=== PATIENT | male | born 1940 | race Caucasian/White ===

== ENCOUNTER → 2016-08-05 | Outpatient (CLI) | payer MEDICARE, OTHER | LOC: RAD 17:27 | PROVIDERS: ATTEND Internal Medicine | DX: C4A.8 Merkel cell carcinoma of overlapping sites (principal) | CPT/HCPCS: 78815; A9552 ==

== ENCOUNTER 2016-10-09 12:04 | Inpatient (IN) | payer MEDICARE, OTHER ==
--- NOTE | 2016-10-09 12:44 | ER Document Report ---
ED Medical Screen (RME) - General Chief Complaint: Fall Stated Complaint: DIZZY Time Seen by Provider: 10/09/16 12:13 Mode of Arrival: Wheelchair Notes: 76-year-old male who is accompanied by a friend after being sent over by an outside facility for "confusion". Patient supposedly was unable to talk starting around 4 AM. Patient went on a piece of paper that it was 3 AM. Patient denies any headache, chest pain, weakness or numbness to the upper or lower extremities. The friend states the patient has had no recent illness, nausea, vomiting, or other review of systems. Patient has a history of a CABG, intracranial hemorrhage, stroke, and right-sided BKA. On my examination initially, the patient has no obvious focal neurological deficits other than expressive aphasia. TRAVEL OUTSIDE OF THE [place] IN LAST 30 DAYS: No - Related Data Allergies/Adverse Reactions: codeine Allergy (Verified 10/09/16 12:08) latex [Latex] Allergy (Verified 10/09/16 12:08) tetracycline Allergy (Verified 10/09/16 12:08) Past Medical History - Past Medical History Cardiac Medical History: Reports: Hx Hypertension Denies: Hx Coronary Artery Disease, Hx Heart Attack Pulmonary Medical History: Reports: Hx Asthma, Hx COPD Denies: Hx Bronchitis, Hx Pneumonia Neurological Medical History: Denies: Hx Cerebrovascular Accident, Hx Seizures Renal/ Medical History: Denies: Hx Peritoneal Dialysis GI Medical History: Denies: Hx Hepatitis, Hx Hiatal Hernia, Hx Ulcer Musculoskeltal Medical History: Denies Hx Arthritis Infectious Medical History: Denies: Hx Hepatitis Past Surgical History: Denies: Hx Open Heart Surgery, Hx Pacemaker - Immunizations Hx Diphtheria, Pertussis, Tetanus Vaccination: Yes Physical Exam - Vital signs Vitals: Temp Pulse Resp BP Pulse Ox 98.4 F 70 18 128/73 H 98 10/09/16 12:10 10/09/16 12:10 10/09/16 12:10 10/09/16 12:10 10/09/16 12:10 Course - Vital Signs Vital signs: Temp Pulse Resp BP Pulse Ox 98.4 F 70 18 128/73 H 98 10/09/16 12:10 10/09/16 12:10 10/09/16 12:10 10/09/16 12:10 10/09/16 12:10
[2016-10-09 13:17] LABS: ABSOLUTE BASOPHILS # (AUTO) 0.1 10^3/uL (0.0-0.2); ABSOLUTE EOSINOPHILS # (AUTO) 0.2 10^3/uL (0.0-0.6); ABSOLUTE LYMPHOCYTES (AUTO) 1.4 10^3/uL (0.5-4.7); ABSOLUTE MONOCYTES (AUTO) 0.6 10^3/uL (0.1-1.4); ABSOLUTE NEUT (AUTO) 4.7 10^3/uL (1.7-8.2); EOSINOPHILS % (AUTO) 2.4 % (0-6); HEMATOCRIT 35.4 % (37.9-51.0); HEMOGLOBIN 11.9 g/dL (13.5-17.0); HGB HCT DIFFERENCE 0.3; LYMPHOCYTES % (AUTO) 19.6 % (13-45); MEAN CORPUSCULAR HEMOGLOBIN 27.5 pg (27.0-33.4); MEAN CORPUSCULAR HGB CONC 33.7 g/dL (32.0-36.0); MEAN CORPUSCULAR VOLUME 82 fl (80-97); MONOCYTES % (AUTO) 9.2 % (3-13); RED BLOOD COUNT 4.34 10^6/uL (4.35-5.55); RED CELL DISTRIBUTION WIDTH 14.2 % (11.5-14.0); SEGMENTED NEUTROPHILS % (AUTO) 67.8 % (42-78); WHITE BLOOD COUNT 6.9 10^3/uL (4.0-10.5)
[2016-10-09 13:28] LABS: APPEARANCE,URINE SLIGHTLY-CLOUDY; BILIRUBIN,URINE NEGATIVE (NEGATIVE); GLUCOSE, URINE NEGATIVE (NEGATIVE); KETONES,URINE NEGATIVE (NEGATIVE); LEUKOCYTE ESTERASE,URINE NEGATIVE (NEGATIVE); NITRITE,URINE NEGATIVE (NEGATIVE); PROTEIN,URINE 30 mg/dL (NEGATIVE); URINE SPECIFIC GRAVITY 1.015; UROBILINOGEN,URINE NEGATIVE mg/dL (<2.0)
[2016-10-09] MEDS ORDERED: NORMAL SALINE 1000 ML 1,000 ML IV ONE (13:32)
--- NOTE | 2016-10-09 13:32 | ER Document Report ---
ED General - General Chief Complaint: Fall Stated Complaint: DIZZY Time Seen by Provider: 10/09/16 12:13 Mode of Arrival: Wheelchair Information source: Patient, Relative Cannot obtain history due to: Altered mental status TRAVEL OUTSIDE OF THE [place] IN LAST 30 DAYS: No - HPI Notes: 72-year-old male with history of Adrián cell cancer with brain metastases presents with increasing confusion and instability with frequent falls over the last week. Patient had a fall about a week ago and had hit his head but seemed okay. That night he seemed more tremulous and since then has had increasing confusion and various areas of pain. This includes his back which he had an MRI for this weekend showing an acute mildly compressed L2 fracture. Denies any neurologic symptoms otherwise such as focal leg weakness or numbness. Everything seems fairly global. His intake has been very poor over the last few days as well and he states he does not have an appetite. There is been no fever or infectious symptoms otherwise. Denies dysuria or cough cold or other symptoms. Tetanus shot is not up-to-date. He has as well started on Nucynta for the pain but this has not been started until after the decompensation was already occurring. - Related Data Allergies/Adverse Reactions: codeine Allergy (Verified 10/09/16 12:08) latex [Latex] Allergy (Verified 10/09/16 12:08) tetracycline Allergy (Verified 10/09/16 12:08) Past Medical History - Social History Smoking Status: Never Smoker Family History: Reviewed & Not Pertinent Patient has suicidal ideation: No Patient has homicidal ideation: No - Past Medical History Cardiac Medical History: Reports: Hx Hypertension Denies: Hx Coronary Artery Disease, Hx Heart Attack Pulmonary Medical History: Reports: Hx Asthma, Hx COPD Denies: Hx Bronchitis, Hx Pneumonia Neurological Medical History: Denies: Hx Cerebrovascular Accident, Hx Seizures Renal/ Medical History: Denies: Hx Peritoneal Dialysis GI Medical History: Denies: Hx Hepatitis, Hx Hiatal Hernia, Hx Ulcer Musculoskeltal Medical History: Denies Hx Arthritis Infectious Medical History: Denies: Hx Hepatitis Past Surgical History: Denies: Hx Open Heart Surgery, Hx Pacemaker - Immunizations Hx Diphtheria, Pertussis, Tetanus Vaccination: Yes Hx Pneumococcal Vaccination: 05/27/06 Review of Systems - Review of Systems -: Yes All other systems reviewed and negative Physical Exam - Vital signs Vitals: Temp Pulse Resp BP Pulse Ox 98.4 F 70 18 128/73 H 98 10/09/16 12:10 10/09/16 12:10 10/09/16 12:10 10/09/16 12:10 10/09/16 12:10 - Notes Notes: GENERAL: VS as per nursing doc. chronically ill, pleasant and cooperative male in no acute distress. HEAD: No gross deformity but he has scattered abrasions over his forehead and crowns of his head. EYES: Chronic changes noted to the right eye, the site of prior surgeries, extraocular movements intact, sclera anicteric, no conjunctival injection or discharge. ENT: Nares patent, oropharynx clear without exudates, very dry mucous membranes. NECK: Normal range of motion, supple without tenderness LUNGS: Breath sounds clear but coarse to auscultation bilaterally and equal. No wheezes rales or rhonchi. HEART: Regular rate and rhythm without murmurs. ABDOMEN: Soft, non-tender, normoactive bowel sounds. No guarding, no rebound. No masses appreciated. No Hollywood sign. BACK: Lumbar tenderness noted EXTREMITIES: Normal range of motion, no calf tenderness, no edema. NEUROLOGICAL: Cranial nerves appeared intact, normal speech, poor recall and is oriented 2. PSYCH: Normal mood, normal affect. Pleasant and cooperative SKIN: Warm, dry, scattered areas of abrasions are noted over his legs particularly on the medial knee regions bilaterally. Also this includes the frontal region of the skull and some superficial skin tears are noted over both extremities Course - Re-evaluation Re-evalutation: 10/09/16 16:09 Dr. Hopkins will admit to [facility]. - Vital Signs Vital signs: Temp Pulse Resp BP Pulse Ox 98.4 F 70 16 102/78 99 10/09/16 12:10 10/09/16 12:10 10/09/16 15:01 10/09/16 14:01 10/09/16 15:01 - Laboratory Result Diagrams: 10/09/16 12:55 10/09/16 12:55 Laboratory results interpreted by me: 10/09/16 10/09/16 10/09/16 12:55 12:55 12:55 RBC 4.34 L Hgb 11.9 L Hct 35.4 L RDW 14.2 H Sodium 133.4 L BUN 27 H Creatinine 1.78 H Est GFR ( Amer) 45 L Est GFR (Non-Af Amer) 38 L Total Bilirubin 1.7 H Direct Bilirubin 1.1 H AST 76 H Urine Protein 30 H Urine Ascorbic Acid 20 H - EKG Interpretation by Ok EKG shows normal: Sinus rhythm - Normal sinus rhythm with normal rate of 66. QRS is normal. There is some mild ST depression predominantly in inferior and anterior leads. This seems to slightly more prominent than 12/05/2015. Discharge - Discharge Clinical Impression: Ataxia, Adrián cell carcinoma Condition: Fair Disposition: ADMITTED INPATIENT Admitting Provider: Hopkins Unit Admitted: [facility]
[2016-10-09 13:36] LABS: ALANINE AMINOTRANSFERASE 53 U/L (21-72); ALBUMIN 3.6 g/dL (3.5-5.0); ALKALINE PHOSPHATASE 79 U/L (38-126); ANION GAP 11 (5-19); ASPARTATE AMINO TRANSFERASE 76 U/L (17-59); BILIRUBIN,DIRECT 1.1 mg/dL (0.0-0.4); BILIRUBIN,TOTAL 1.7 mg/dL (0.2-1.3); BLOOD UREA NITROGEN 27 mg/dL (7-20); CALCIUM 9.4 mg/dL (8.4-10.2); CARBON DIOXIDE 24 mmol/L (22-30); CHLORIDE 98 mmol/L (98-107); CREATININE RESULT 1.78 mg/dL (0.52-1.25); GLUCOSE 89 mg/dL (75-110); SODIUM 133.4 mmol/L (137-145); TOTAL PROTEIN 6.7 g/dL (6.3-8.2)
[2016-10-09] MEDS ORDERED: ONDANSETRON HCL INJ/PF 4 MG/2 ML SDV IV PRN (16:35)
[2016-10-09] MEDS ORDERED: NORMAL SALINE 1000 ML 1,000 ML IV PRN (16:35)
[2016-10-09] MEDS ORDERED: IPRATROPIUM/ALBUTEROL 0.5-2.5 MG/3 ML AMPUL NEB PRN (16:35)
[2016-10-09] MEDS ORDERED: ACETAMINOPHEN 325 MG TABLET PO PRN (16:35)
[2016-10-09] MEDS ORDERED: ENOXAPARIN SODIUM INJ 40 MG/0.4 ML DISP.SYRIN SUBCUT ONE (18:00)
--- NOTE | 2016-10-09 18:16 | PDOC H&P ---
History of Present Illness Admission Date/PCP: 10/09/16 16:35 AURORA LOWRY MD Patient complains of: Weakness and frequent fall History of Present Illness: LI CHENG is a 76 year old male This is a 72-year-old male with the history of the Adrián cell cancer with the brain metastasis presents with increasing confusion and instability with frequent falls over the last 1 week. Patient had a fall about 1 week ago and had a heat is head. That might is seems more tremulous and since then he has increasing confusions and various area of the pain. This included in the back which patient's went to see her Dr. Larry Argueta and had a MRI was done and formed acute compression fracture, L2. Patient's any denied any neurological symptoms other than that weakness. According to the right patient have a urinary tract infections couple of weeks back and the patient was feeling the same carpal confusions. Patient is going to see the oncology today and the ascending to the emergency department because of the all the weakness in the confusions. Patient's denied any cough any congestion patient's denied any urinary symptoms. Patient started the [facility] center for the pain but patient's did not taking any medication yet Patient's also currently on immunotherapy and patient's complaining some rash on the skin Past Medical History Cardiac Medical History: Reports: Hyperlipidema, Hypertension Denies: Coronary Artery Disease, Myocardial Infarction Pulmonary Medical History: Reports: Asthma, Chronic Obstructive Pulmonary Disease (COPD) Denies: Bronchitis, Pneumonia Neurological Medical History: Denies: Seizures GI Medical History: Denies: Hepatitis, Hiatal Hernia Musculoskeltal Medical History: Denies: Arthritis Psychiatric Medical History: Reports: Depression Hematology: Denies: Anemia, Sickle Cell Disease Past Surgical History Past Surgical History: Reports: Other Denies: Pacemaker Social History Smoking Status: Never Smoker Family History Family History: Reviewed & Not Pertinent Parental Family History Reviewed: Yes Children Family History Reviewed: Yes Sibling(s) Family History Reviewed.: Yes Medication/Allergy Home Medications: Atenolol [Tenormin 50 mg Tablet] 25 mg PO DAILY 10/09/16 B Complex & C No.20/Folic Acid [Renal Caps Softgel] 1 cap PO DAILY 10/09/16 Chlorzoxazone [Lorzone] 375 mg PO BID 10/09/16 Cholecalciferol (Vitamin D3) [Vitamin D3 1000 Unit Tablet] 1,000 units PO DAILY 10/09/16 Fenofibric Acid (Choline) [Fenofibric Acid] 135 mg PO DAILY 10/09/16 Furosemide [Lasix 20 mg Tablet] 20 mg PO MOWEFR 10/09/16 Hydroxyzine HCl [Atarax 50 mg Tablet] 50 mg PO TID 10/09/16 Levetiracetam [Keppra 500 mg Tablet] 1,000 mg PO Q12 10/09/16 Levothyroxine Sodium [Synthroid 0.1 mg Tablet] 0.01 mg PO DAILY 10/09/16 Montelukast Sodium [Singulair 10 mg Tablet] 10 mg PO DAILY 10/09/16 Pantoprazole Sodium [Protonix] 40 mg PO DAILY 10/09/16 Phosphorus #1 [K-Phos Neutral 250 mg Tablet] 125 mg PO DAILY 10/09/16 Sertraline HCl [Zoloft] 100 mg PO DAILY 10/09/16 Simvastatin [Zocor 20 mg Tablet] 20 mg PO QHS 10/09/16 Tapentadol Hydrochloride [Nucynta] 50 mg PO QID 10/09/16 Tiotropium [place] [Spiriva Handihaler 18 mcg/dose (30 Dose)] 1 puff IH DAILY Tramadol HCl [Ultram 50 mg Tablet] 50 mg PO TIDP PRN 10/09/16 Allergies/Adverse Reactions: codeine Allergy (Verified 10/09/16 12:08) latex [Latex] Allergy (Verified 10/09/16 12:08) tetracycline Allergy (Verified 10/09/16 12:08) Review of Systems Constitutional: PRESENT: anorexia, weakness, weight loss Eyes: ABSENT: visual disturbances Ears: ABSENT: hearing changes Cardiovascular: PRESENT: other. ABSENT: chest pain, dyspnea on exertion, edema , orthropnea, palpitations Respiratory: ABSENT: cough, hemoptysis Gastrointestinal: ABSENT: abdominal pain, constipation, diarrhea, hematemesis, hematochezia, nausea, vomiting Genitourinary: ABSENT: dysuria, hematuria Musculoskeletal: ABSENT: joint swelling Integumentary: ABSENT: rash, wounds Neurological: PRESENT: confusion, dizziness. ABSENT: abnormal gait, abnormal speech, focal weakness, syncope Psychiatric: PRESENT: depression. ABSENT: anxiety, homidical ideation, suicidal ideation Endocrine: ABSENT: cold intolerance, heat intolerance, menstrual abnormalities, polydipsia, polyuria Hematologic/Lymphatic: ABSENT: easy bleeding, easy bruising, lymphadenopathy Physical Exam Vital Signs: Temp Pulse Resp BP Pulse Ox 98.4 F 70 19 159/62 H 100 10/09/16 12:10 10/09/16 12:10 10/09/16 17:01 10/09/16 16:03 10/09/16 17:02 General appearance: PRESENT: no acute distress Head exam: PRESENT: atraumatic, normocephalic Eye exam: PRESENT: conjunctiva pink, EOMI, PERRLA. ABSENT: scleral icterus Ear exam: PRESENT: normal external ear exam Mouth exam: PRESENT: moist, tongue midline Neck exam: PRESENT: full ROM. ABSENT: carotid bruit, JVD, lymphadenopathy, thyromegaly Respiratory exam: PRESENT: clear to auscultation kay Cardiovascular exam: PRESENT: RRR. ABSENT: diastolic murmur, rubs, systolic murmur Pulses: PRESENT: normal dorsalis pedis pul, +2 pedal pulses bilateral Vascular exam: PRESENT: normal capillary refill GI/Abdominal exam: PRESENT: normal bowel sounds, soft. ABSENT: distended, guarding, mass, organolmegaly, rebound, tenderness Rectal exam: PRESENT: deferred Extremities exam: ABSENT: pedal edema Neurological exam: PRESENT: alert, awake, oriented to person, oriented to place , reflexes normal, CN II-XII grossly intact. ABSENT: motor sensory deficit Psychiatric exam: PRESENT: appropriate affect, normal mood. ABSENT: homicidal ideation, suicidal ideation Skin exam: PRESENT: dry, intact, warm, other - Scattered area of the upper is noted over these leg. On the frontal region of the skull and some superficial skin tears are noted in the both extremity. ABSENT: cyanosis, rash Results Impressions: Head CT 10/09/16 12:14 IMPRESSION: No acute changes. 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 This is unchanged from MRI 08/01/2016, and CT brain 12/05/2015. Chest X-Ray 10/09/16 13:34 IMPRESSION: NO ACUTE RADIOGRAPHIC FINDING IN THE CHEST. Assessment & Plan - Diagnosis (1) Weakness Is this a current diagnosis for this admission?: YesPlan: Most likely a poor appetite and the recent compression fracture. We will admit the patient get the pain management consult and start the IV fluid and the physical therapy evaluations (2) Dehydration Is this a current diagnosis for this admission?: YesPlan: Start the IV fluid (3) Frequent falls Is this a current diagnosis for this admission?: YesPlan: Most likely due to the new onset of the compression fracture. Patient's CT of the head is negative for any acute finding except patient have a metastatic disease which is unchanged (4) Compression fracture of fourth lumbar vertebra Qualifiers: Encounter type: initial encounter Is this a current diagnosis for this admission?: YesPlan: Consult the pain management (5) Ataxia Is this a current diagnosis for this admission?: Yes (6) [place] cell carcinoma Is this a current diagnosis for this admission?: YesPlan: Consult the oncology (7) Confusion Is this a current diagnosis for this admission?: YesPlan: We will get the blood culture urine culture to rule out any infectious process. Start the patient on IV Rocephin - Time Time Spent: 50 to 70 Minutes Medications reviewed and adjusted accordingly: Yes Anticipated discharge: Home, Other Within: Other - Inpatient Certification Medical Necessity: Need Close Monitoring Due to Risk of Patient Decompensation, Need For IV Fluids, Need for IV Antibiotics Post Hospital Care: D/C Ergon[facility] Specialist Documentation - Plan Summary Plan Summary: Very extensive discussed with the in the emergency department about the patient's current conditions and overall poor prognosis
[2016-10-09] MEDS: CEFTRIAXONE 1 GM/D5W RTU 1 GM/50 ML RTUPB IV SCH (19:09)
[2016-10-09] MEDS: LANSOPRAZOLE 15 MG TAB.RAP.DR PO SCH (19:37)
[2016-10-09] MEDS ORDERED: HYDROXYZINE PAMOATE 50 MG CAPSULE PO ONE (20:30)
[2016-10-09 21:28] LABS: CREATINE KINASE MB 1.16 ng/mL (<4.55)
[2016-10-09 21:30] LABS: TROPONIN I < 0.012 ng/mL
[2016-10-09] MEDS: TRAMADOL HCL 50 MG TABLET PO PRN (21:51)
[2016-10-09] MEDS: SIMVASTATIN 10 MG TABLET PO SCH (21:51)
[2016-10-09] MEDS: LEVETIRACETAM 500 MG TABLET PO SCH (21:52)
[2016-10-09] MEDS ORDERED: HYDROXYZINE HCL 10 MG TABLET PO SCH (22:00)
[2016-10-09] MEDS: HYDROXYZINE HCL 10 MG TABLET PO SCH (22:06)
--- NOTE | 2016-10-09 22:11 | EKG REPORT ---
SEVERITY:- NORMAL ECG - SINUS RHYTHM : Confirmed by: Edie Fang MD 09-Oct-2016 22:10:32
[2016-10-10] MEDS ORDERED: (PENDING PHARMACY ID) (Tapentadol Hydrochloride [Nucynta] 50 MG) PO SCH
[2016-10-10 02:18] LABS: ABSOLUTE BASOPHILS # (AUTO) 0.1 10^3/uL (0.0-0.2); ABSOLUTE EOSINOPHILS # (AUTO) 0.2 10^3/uL (0.0-0.6); ABSOLUTE MONOCYTES (AUTO) 0.4 10^3/uL (0.1-1.4); ABSOLUTE NEUT (AUTO) 3.6 10^3/uL (1.7-8.2); BASOPHILS % (AUTO) 1.1 % (0-2); EOSINOPHILS % (AUTO) 3.8 % (0-6); HEMATOCRIT 31.6 % (37.9-51.0); HEMOGLOBIN 10.9 g/dL (13.5-17.0); HGB HCT DIFFERENCE 1.1; LYMPHOCYTES % (AUTO) 18.3 % (13-45); MEAN CORPUSCULAR HEMOGLOBIN 27.5 pg (27.0-33.4); MEAN CORPUSCULAR HGB CONC 34.6 g/dL (32.0-36.0); MEAN CORPUSCULAR VOLUME 79 fl (80-97); MONOCYTES % (AUTO) 8.4 % (3-13); RED BLOOD COUNT 3.98 10^6/uL (4.35-5.55); RED CELL DISTRIBUTION WIDTH 13.9 % (11.5-14.0); SEGMENTED NEUTROPHILS % (AUTO) 68.4 % (42-78); WHITE BLOOD COUNT 5.2 10^3/uL (4.0-10.5)
[2016-10-10 02:27] LABS: ALANINE AMINOTRANSFERASE 49 U/L (21-72); ALBUMIN 2.8 g/dL (3.5-5.0); ALKALINE PHOSPHATASE 70 U/L (38-126); ANION GAP 9 (5-19); ASPARTATE AMINO TRANSFERASE 60 U/L (17-59); BILIRUBIN,DIRECT 0.7 mg/dL (0.0-0.4); BILIRUBIN,TOTAL 1.1 mg/dL (0.2-1.3); BLOOD UREA NITROGEN 20 mg/dL (7-20); CALCIUM 8.5 mg/dL (8.4-10.2); CARBON DIOXIDE 23 mmol/L (22-30); CHLORIDE 107 mmol/L (98-107); CREATININE RESULT 1.46 mg/dL (0.52-1.25); GLUCOSE 103 mg/dL (75-110); POTASSIUM 3.7 mmol/L (3.6-5.0); SODIUM 138.9 mmol/L (137-145); TOTAL PROTEIN 5.3 g/dL (6.3-8.2)
[2016-10-10 02:38] LABS: CREATINE KINASE MB 1.29 ng/mL (<4.55)
[2016-10-10 02:43] LABS: TROPONIN I < 0.012 ng/mL
[2016-10-10] MEDS: LANSOPRAZOLE 15 MG TAB.RAP.DR PO SCH ×2 (06:00→17:00)
[2016-10-10] MEDS: HYDROXYZINE HCL 10 MG TABLET PO SCH ×3 (06:00→22:33)
[2016-10-10] MEDS ORDERED: LEVOTHYROXINE SODIUM 0.1 MG TABLET PO SCH (08:00)
[2016-10-10] MEDS: ENOXAPARIN SODIUM INJ 40 MG/0.4 ML DISP.SYRIN SUBCUT SCH (08:00)
[2016-10-10] MEDS ORDERED: ATENOLOL 50 MG TABLET PO SCH (10:00)
[2016-10-10] MEDS: MONTELUKAST SODIUM 10 MG TABLET PO SCH (10:00)
[2016-10-10] MEDS ORDERED: CHLORZOXAZONE 375 MG PO SCH (10:00)
[2016-10-10] MEDS ORDERED: (PENDING PHARMACY ID) (Fenofibric Acid (Choline) [Fenofibric Acid] 135 MG) PO SCH (10:00)
[2016-10-10] MEDS: PHOSPHORUS #1 250 MG TABLET PO SCH (10:00)
[2016-10-10] MEDS: FOLIC ACID/VITAMIN B COMP W-C CAPSULE PO SCH (10:00)
[2016-10-10] MEDS: TIOTROPIUM BROMIDE DPI 5 CAP/KIT (18 MCG/CAP) IH SCH (10:00)
[2016-10-10] MEDS ORDERED: FUROSEMIDE 20 MG TABLET PO SCH (10:00)
[2016-10-10] MEDS: SERTRALINE HCL 50 MG TABLET PO SCH (10:00)
[2016-10-10] MEDS ORDERED: FENOFIBRATE NANOCRYSTALLIZED 145 MG TABLET PO SCH (10:00)
[2016-10-10] MEDS: LEVETIRACETAM 500 MG TABLET PO SCH ×2 (10:00→22:33)
[2016-10-10] MEDS: CHLORZOXAZONE 500 MG TABLET PO SCH ×2 (10:00→18:00)
[2016-10-10] MEDS: CHOLECALCIFEROL (D3) 1,000 UNIT TABLET PO SCH (10:00)
[2016-10-10] MEDS: CEFTRIAXONE 1 GM/D5W RTU 1 GM/50 ML RTUPB IV SCH (18:00)
[2016-10-10] MEDS ORDERED: CEFTRIAXONE 1 GM/D5W RTU 1 GM/50 ML RTUPB IV ONE (18:00)
[2016-10-10] MEDS: SIMVASTATIN 10 MG TABLET PO SCH (22:33)
[2016-10-11] MEDS: HYDROXYZINE HCL 10 MG TABLET PO SCH (05:15)
[2016-10-11] MEDS: LANSOPRAZOLE 15 MG TAB.RAP.DR PO SCH ×2 (05:15→17:35)
[2016-10-11 05:43] LABS: ABSOLUTE EOSINOPHILS # (AUTO) 0.4 10^3/uL (0.0-0.6); ABSOLUTE LYMPHOCYTES (AUTO) 0.9 10^3/uL (0.5-4.7); ABSOLUTE MONOCYTES (AUTO) 0.5 10^3/uL (0.1-1.4); ABSOLUTE NEUT (AUTO) 3.2 10^3/uL (1.7-8.2); BASOPHILS % (AUTO) 0.6 % (0-2); EOSINOPHILS % (AUTO) 7.1 % (0-6); HEMATOCRIT 36.7 % (37.9-51.0); HEMOGLOBIN 12.2 g/dL (13.5-17.0); HGB HCT DIFFERENCE -0.1; LYMPHOCYTES % (AUTO) 18.3 % (13-45); MEAN CORPUSCULAR HEMOGLOBIN 27.3 pg (27.0-33.4); MEAN CORPUSCULAR HGB CONC 33.4 g/dL (32.0-36.0); MEAN CORPUSCULAR VOLUME 82 fl (80-97); MONOCYTES % (AUTO) 9.6 % (3-13); RED BLOOD COUNT 4.49 10^6/uL (4.35-5.55); RED CELL DISTRIBUTION WIDTH 13.9 % (11.5-14.0); SEGMENTED NEUTROPHILS % (AUTO) 64.4 % (42-78)
--- NOTE | 2016-10-11 07:45 | PDOC CONSULTATION ---
Consultation Consult Date: 10/10/16 Attending physician:: MARLENA OLWRY Consult reason:: Asked by Dr. Lowry to see patient with known history of stage for Adrián cell carcinoma with brain metastasis, here with weakness, falls, neurologic changes History of Present Illness Admission Date/PCP: 10/09/16 16:35 AURORA LOWRY MD Patient complains of: patient with known history of stage for Adrián cell carcinoma with brain metastasis, here with weakness, falls, neurologic changes History of Present Illness: 76-year-old male with known history of stage for [place] cell carcinoma, he has had this diagnosis now for almost 2 years, initially had intra-abdominal metastasis and then had brain metastasis. He had a brain metastasis treated by gamma knife, about 1 year ago was treated with whole brain radiation. The abdominal metastasis was treated with CyberKnife therapy and now has been in remission for about 2 years. About 8 months ago the brain metastasis began to grow post whole brain radiation, there were neurologic changes, and we started him on compassionate use of immunotherapy called Keytruda, he has been on that now for this time period. He has been doing very well, the neurologic changes improved, imaging indicated improved disease and most recently stable disease. He had MRI last in July. He was planned for another one in October. PET/CT in July also showed no evidence of disease outside the brain. But the uptake in the brain was better. About 1 week ago he was walking up the stairs in his house and fell backwards, fell to his back and head. Thereafter his notes that he has been confused, he has had 5 other falls, he was seen in office on and we wanted to directly admit him to [facility] because of weakness, he came in a wheelchair and was confused, he had multiple bruises on his body from falls, ultimately we sent him to the ED, he had a CT of the head without contrast, no evidence of bleed, the lesion was stable, he was admitted for further workup. Since admission, he was found to have some evidence of UTI and has been started on ceftriaxone. Past Medical History Cardiac Medical History: Reports: Hyperlipidema, Hypertension Denies: Coronary Artery Disease, Myocardial Infarction Pulmonary Medical History: Reports: Asthma, Chronic Obstructive Pulmonary Disease (COPD) Denies: Bronchitis, Pneumonia Neurological Medical History: Denies: Seizures Malignancy Medical History: Reports: Other - adrián cell carcinoma as above GI Medical History: Denies: Hepatitis, Hiatal Hernia Musculoskeltal Medical History: Denies: Arthritis Psychiatric Medical History: Reports: Depression Hematology: Denies: Anemia, Sickle Cell Disease Past Surgical History Past Surgical History: Reports: Other Denies: Pacemaker Social History Smoking Status: Never Smoker Frequency of Alcohol Use: None Hx Recreational Drug Use: No Hx Prescription Drug Abuse: No - Advance Directive Resuscitation Status: Full Code Family History Family History: Reviewed & Not Pertinent Parental Family History Reviewed: Yes Children Family History Reviewed: Yes Sibling(s) Family History Reviewed.: Yes Medication/Allergy Home Medications: Atenolol [Tenormin 50 mg Tablet] 25 mg PO DAILY 10/09/16 B Complex & C No.20/Folic Acid [Renal Caps Softgel] 1 cap PO DAILY 10/09/16 Chlorzoxazone [Lorzone] 375 mg PO BID 10/09/16 Cholecalciferol (Vitamin D3) [Vitamin D3 1000 Unit Tablet] 1,000 units PO DAILY 10/09/16 Fenofibric Acid (Choline) [Fenofibric Acid] 135 mg PO DAILY 10/09/16 Furosemide [Lasix 20 mg Tablet] 20 mg PO MOWEFR 10/09/16 Hydroxyzine HCl [Atarax 50 mg Tablet] 50 mg PO TID 10/09/16 Levetiracetam [Keppra 500 mg Tablet] 1,000 mg PO Q12 10/09/16 Levothyroxine Sodium [Synthroid 0.1 mg Tablet] 0.1 mg PO DAILY 10/09/16 Montelukast Sodium [Singulair 10 mg Tablet] 10 mg PO DAILY 10/09/16 Pantoprazole Sodium [Protonix] 40 mg PO DAILY 10/09/16 Phosphorus #1 [K-Phos Neutral 250 mg Tablet] 125 mg PO DAILY 10/09/16 Sertraline HCl [Zoloft] 100 mg PO DAILY 10/09/16 Simvastatin [Zocor 20 mg Tablet] 20 mg PO QHS 10/09/16 Tapentadol Hydrochloride [Nucynta] 50 mg PO QID 10/09/16 Tiotropium [place] [Spiriva Handihaler 18 mcg/dose (30 Dose)] 1 puff IH DAILY Tramadol HCl [Ultram 50 mg Tablet] 50 mg PO TIDP PRN 10/09/16 Allergies/Adverse Reactions: codeine Allergy (Verified 10/09/16 12:08) latex [Latex] Allergy (Verified 10/09/16 12:08) tetracycline Allergy (Verified 10/09/16 12:08) Review of Systems ROS unobtainable: Due to mental status Physical Exam Vital Signs: Temp Pulse Resp BP Pulse Ox 97.5 F 57 L 20 164/81 H 100 10/11/16 04:42 10/11/16 04:42 10/11/16 04:42 10/11/16 04:42 10/11/16 04:42 Intake & Output 10/10/16 10/11/16 10/12/16 06:59 06:59 06:59 Intake Total 1145 Output Total 200 Balance 945 Weight 86 kg General appearance: PRESENT: no acute distress, well-developed, well-nourished Head exam: PRESENT: atraumatic, normocephalic Eye exam: PRESENT: conjunctiva pink, EOMI, PERRLA. ABSENT: scleral icterus Ear exam: PRESENT: normal external ear exam Mouth exam: PRESENT: moist, tongue midline Neck exam: ABSENT: carotid bruit, JVD, lymphadenopathy, thyromegaly Respiratory exam: PRESENT: clear to auscultation kay. ABSENT: rales, rhonchi, wheezes Cardiovascular exam: PRESENT: RRR. ABSENT: diastolic murmur, rubs, systolic murmur Pulses: PRESENT: normal dorsalis pedis pul Vascular exam: PRESENT: normal capillary refill GI/Abdominal exam: PRESENT: normal bowel sounds, soft. ABSENT: distended, guarding, mass, organolmegaly, rebound, tenderness Rectal exam: PRESENT: deferred Extremities exam: PRESENT: full ROM. ABSENT: calf tenderness, clubbing, pedal edema Neurological exam: PRESENT: alert, awake, oriented to person, oriented to place , oriented to time, oriented to situation, CN II-XII grossly intact. ABSENT: motor sensory deficit Psychiatric exam: PRESENT: appropriate affect, normal mood. ABSENT: homicidal ideation, suicidal ideation Skin exam: PRESENT: dry, intact, warm. ABSENT: cyanosis, rash Results Laboratory Results: 10/11/16 05:04 10/10/16 02:05 10/11/16 10/11/16 05:04 05:04 WBC 5.0 RBC 4.49 Hgb 12.2 L Hct 36.7 L MCV 82 MCH 27.3 MCHC 33.4 RDW 13.9 Plt Count 281 Seg Neutrophils % 64.4 Lymphocytes % 18.3 Monocytes % 9.6 Eosinophils % 7.1 H Basophils % 0.6 Absolute Neutrophils 3.2 Absolute Lymphocytes 0.9 Absolute Monocytes 0.5 Absolute Eosinophils 0.4 Absolute Basophils 0.0 Magnesium 1.9 10/09/16 10/09/16 10/10/16 20:15 20:15 02:05 Creatine Kinase 262 H 247 H CK-MB (CK-2) 1.16 Troponin I < 0.012 10/10/16 02:05 Creatine Kinase CK-MB (CK-2) 1.29 Troponin I < 0.012 Impressions: Head CT 10/09/16 12:14 IMPRESSION: No acute changes. 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 This is unchanged from MRI 08/01/2016, and CT brain 12/05/2015. Chest X-Ray 10/09/16 13:34 IMPRESSION: NO ACUTE RADIOGRAPHIC FINDING IN THE CHEST. Status: Image reviewed by me Assessment & Plan - Diagnosis (1) Frequent falls Is this a current diagnosis for this admission?: YesPlan: Unknown cause, initial imaging shows stability of disease but if he does not improve within the next 48 hours we may want to do MRI of the brain. Some part of the falls are related to probably the new pain medication he is on, the Nucynta, as well as the compression fracture and pain related to that. (2) Compression fracture of fourth lumbar vertebra Qualifiers: Encounter type: initial encounter Fracture type: closed Qualified Code(s): S32.040A - [place] compression fracture of fourth lumbar vertebra, initial encounter for closed fracture Is this a current diagnosis for this admission?: YesPlan: He is being seen by Dr. Khalil for this, and plan for kyphoplasty. This should help considerably, that can help us get him off pain medication and then his confusion could improve. (3) Complicated UTI (urinary tract infection) Is this a current diagnosis for this admission?: YesPlan: UTI, probable gram-negative, complicated because of falls and weakness, dehydration, currently on antibiotics. (4) Adrián cell carcinoma Is this a current diagnosis for this admission?: YesPlan: Further immunotherapy planned as an outpatient, we will need to hold it until this workup is completed. - Time Time Spent: Greater than 70 Minutes - Inpatient Certification Based on my medical assessment, after consideration of the patient's comorbidities, presenting symptoms, or acuity I expect that the services needed warrant INPATIENT care.: Yes I certify that my determination is in accordance with my understanding of Medicare's requirements for reasonable and necessary INPATIENT services [42 CFR 412.3e].: Yes Medical Necessity: Need For Continuous Telemetry Monitoring, Need for Neurological Checks, Need for Pain Control, Need for IV Antibiotics, Need for Surgery, Risk of Complication if Not Cared For in Hospital
[2016-10-11] MEDS: ENOXAPARIN SODIUM INJ 40 MG/0.4 ML DISP.SYRIN SUBCUT SCH (08:02)
[2016-10-11] MEDS: LEVOTHYROXINE SODIUM 0.1 MG TABLET PO SCH (08:03)
--- NOTE | 2016-10-11 08:08 | PDOC PROGRESS REPORT ---
Subjective Progress Note for:: 10/11/16 Subjective:: Patient is doing better. Patient's denied any chest pain denied any shortness of the breath. Patient is seen by Dr. 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 With the patient's frequent fall and more drowsy will stop the all the statin and reduce the dose of the Keppra while patient in the hospital Patient's blood pressure is slightly elevated and patient's now hydrated well so we will stop IV fluid and adjust the dose of the atenolol Physical Exam Vital Signs: Temp Pulse Resp BP Pulse Ox 97.5 F 57 L 20 164/81 H 100 10/11/16 04:42 10/11/16 04:42 10/11/16 04:42 10/11/16 04:42 10/11/16 04:42 Intake & Output 10/10/16 10/11/16 10/12/16 06:59 06:59 06:59 Intake Total 1145 Output Total 200 Balance 945 Weight 86 kg General appearance: PRESENT: no acute distress, well-developed, well-nourished Head exam: PRESENT: atraumatic, normocephalic Eye exam: PRESENT: conjunctiva pink, EOMI, PERRLA. ABSENT: scleral icterus Ear exam: PRESENT: normal external ear exam Mouth exam: PRESENT: moist, tongue midline Neck exam: PRESENT: full ROM. ABSENT: carotid bruit, JVD, lymphadenopathy, thyromegaly Respiratory exam: PRESENT: clear to auscultation kay Cardiovascular exam: PRESENT: RRR. ABSENT: diastolic murmur, rubs, systolic murmur Pulses: PRESENT: normal dorsalis pedis pul, +2 pedal pulses bilateral Vascular exam: PRESENT: normal capillary refill GI/Abdominal exam: PRESENT: normal bowel sounds, soft. ABSENT: distended, guarding, mass, organolmegaly, rebound, tenderness Rectal exam: PRESENT: deferred Neurological exam: PRESENT: alert, awake, oriented to person, oriented to place , oriented to time, oriented to situation, CN II-XII grossly intact. ABSENT: motor sensory deficit Psychiatric exam: PRESENT: appropriate affect, normal mood. ABSENT: homicidal ideation, suicidal ideation Skin exam: PRESENT: dry, intact, warm. ABSENT: cyanosis, rash Results Laboratory Results: 10/11/16 05:04 10/10/16 02:05 10/11/16 10/11/16 05:04 05:04 WBC 5.0 RBC 4.49 Hgb 12.2 L Hct 36.7 L MCV 82 MCH 27.3 MCHC 33.4 RDW 13.9 Plt Count 281 Seg Neutrophils % 64.4 Lymphocytes % 18.3 Monocytes % 9.6 Eosinophils % 7.1 H Basophils % 0.6 Absolute Neutrophils 3.2 Absolute Lymphocytes 0.9 Absolute Monocytes 0.5 Absolute Eosinophils 0.4 Absolute Basophils 0.0 Magnesium 1.9 10/09/16 10/09/16 10/10/16 20:15 20:15 02:05 Creatine Kinase 262 H 247 H CK-MB (CK-2) 1.16 Troponin I < 0.012 10/10/16 02:05 Creatine Kinase CK-MB (CK-2) 1.29 Troponin I < 0.012 Impressions: Head CT 10/09/16 12:14 IMPRESSION: No acute changes. 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 This is unchanged from MRI 08/01/2016, and CT brain 12/05/2015. Chest X-Ray 10/09/16 13:34 IMPRESSION: NO ACUTE RADIOGRAPHIC FINDING IN THE CHEST. Assessment & Plan - Diagnosis (1) Weakness Is this a current diagnosis for this admission?: YesPlan: We will get the physical therapy evaluations and continues to monitor the patient's in the fall precautions and the cut down the all the statin to reduce the dose of the keppra (2) Dehydration Is this a current diagnosis for this admission?: YesPlan: Start the IV fluid (3) Frequent falls Is this a current diagnosis for this admission?: YesPlan: Most likely due to the new onset of the compression fracture. Patient's CT of the head is negative for any acute finding except patient have a metastatic disease which is unchanged (4) Compression fracture of fourth lumbar vertebra Qualifiers: Encounter type: initial encounter Fracture type: closed Qualified Code(s): S32.040A - Wedge compression fracture of fourth lumbar vertebra, initial encounter for closed fracture Is this a current diagnosis for this admission?: YesPlan: Consult the pain management (5) Ataxia Is this a current diagnosis for this admission?: Yes (6) [place] cell carcinoma Is this a current diagnosis for this admission?: YesPlan: Consult the oncology (7) Confusion Is this a current diagnosis for this admission?: Yes - Time Time Spent with patient: 15-24 minutes Medications reviewed and adjusted accordingly: Yes Anticipated discharge: Home Within: Other - Inpatient Certification Medical Necessity: Need Close Monitoring Due to Risk of Patient Decompensation, Need For IV Fluids 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
--- NOTE | 2016-10-11 08:09 | PDOC PROGRESS REPORT ---
Subjective Progress Note for:: 10/11/16 Subjective:: Seems better today, just got up to floor overnight, was very agitated in ED as expected Physical Exam Vital Signs: Temp Pulse Resp BP Pulse Ox 97.5 F 57 L 20 164/81 H 100 10/11/16 04:42 10/11/16 04:42 10/11/16 04:42 10/11/16 04:42 10/11/16 04:42 Intake & Output 10/10/16 10/11/16 10/12/16 06:59 06:59 06:59 Intake Total 1145 Output Total 200 Balance 945 Weight 86 kg General appearance: PRESENT: no acute distress, well-developed, well-nourished Head exam: PRESENT: atraumatic, normocephalic Eye exam: PRESENT: conjunctiva pink, EOMI, PERRLA. ABSENT: scleral icterus Ear exam: PRESENT: normal external ear exam Mouth exam: PRESENT: moist, tongue midline Neck exam: ABSENT: carotid bruit, JVD, lymphadenopathy, thyromegaly Respiratory exam: PRESENT: clear to auscultation kay. ABSENT: rales, rhonchi, wheezes Cardiovascular exam: PRESENT: RRR. ABSENT: diastolic murmur, rubs, systolic murmur Pulses: PRESENT: normal dorsalis pedis pul Vascular exam: PRESENT: normal capillary refill GI/Abdominal exam: PRESENT: normal bowel sounds, soft. ABSENT: distended, guarding, mass, organolmegaly, rebound, tenderness Rectal exam: PRESENT: deferred Extremities exam: PRESENT: full ROM. ABSENT: calf tenderness, clubbing, pedal edema Neurological exam: PRESENT: alert, awake, oriented to person, oriented to place , oriented to time, oriented to situation, CN II-XII grossly intact. ABSENT: motor sensory deficit Psychiatric exam: PRESENT: appropriate affect, normal mood. ABSENT: homicidal ideation, suicidal ideation Skin exam: PRESENT: dry, intact, warm. ABSENT: cyanosis, rash Results Laboratory Results: 10/11/16 05:04 10/10/16 02:05 10/11/16 10/11/16 05:04 05:04 WBC 5.0 RBC 4.49 Hgb 12.2 L Hct 36.7 L MCV 82 MCH 27.3 MCHC 33.4 RDW 13.9 Plt Count 281 Seg Neutrophils % 64.4 Lymphocytes % 18.3 Monocytes % 9.6 Eosinophils % 7.1 H Basophils % 0.6 Absolute Neutrophils 3.2 Absolute Lymphocytes 0.9 Absolute Monocytes 0.5 Absolute Eosinophils 0.4 Absolute Basophils 0.0 Magnesium 1.9 10/09/16 10/09/16 10/10/16 20:15 20:15 02:05 Creatine Kinase 262 H 247 H CK-MB (CK-2) 1.16 Troponin I < 0.012 10/10/16 02:05 Creatine Kinase CK-MB (CK-2) 1.29 Troponin I < 0.012 Impressions: Head CT 10/09/16 12:14 IMPRESSION: No acute changes. 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 This is unchanged from MRI 08/01/2016, and CT brain 12/05/2015. Chest X-Ray 10/09/16 13:34 IMPRESSION: NO ACUTE RADIOGRAPHIC FINDING IN THE CHEST. Assessment & Plan - Diagnosis (1) Frequent falls Is this a current diagnosis for this admission?: YesPlan: As prev noted, multifactorial, Dr. Hopkins is adjusting multiple meds and changing the meds, we have agreed to decrease keppra to 500mg BID as this maybe contributing. (2) Compression fracture of fourth lumbar vertebra Qualifiers: Qualified Code(s): S32.040A - Wedge compression fracture of fourth lumbar vertebra, initial encounter for closed fracture Is this a current diagnosis for this admission?: YesPlan: Plan for Dr. Khalil to do kyphoplasty, hopeful improveemnt in pain status therafter (3) Complicated UTI (urinary tract infection) Is this a current diagnosis for this admission?: YesPlan: Cont ceftriaxone (4) [place] cell carcinoma Is this a current diagnosis for this admission?: YesPlan: Con't immuno RX as outpt. If no MS improvement in next 48 hours, plan MRI brain in house - Time Time Spent with patient: 35 or more minutes Critical Time spent with patient: 35 or more minutes
[2016-10-11] MEDS ORDERED: ATENOLOL 50 MG TABLET PO SCH (10:00)
[2016-10-11] MEDS: SERTRALINE HCL 50 MG TABLET PO SCH (11:04)
[2016-10-11] MEDS: ATENOLOL 50 MG TABLET PO SCH ×2 (11:04→21:24)
[2016-10-11] MEDS: MONTELUKAST SODIUM 10 MG TABLET PO SCH (11:05)
[2016-10-11] MEDS: CHOLECALCIFEROL (D3) 1,000 UNIT TABLET PO SCH (11:06)
[2016-10-11] MEDS: LEVETIRACETAM 500 MG TABLET PO SCH ×2 (11:06→21:24)
[2016-10-11] MEDS: PHOSPHORUS #1 250 MG TABLET PO SCH (11:06)
[2016-10-11] MEDS: TIOTROPIUM BROMIDE DPI 5 CAP/KIT (18 MCG/CAP) IH SCH (11:08)
[2016-10-11] MEDS: FOLIC ACID/VITAMIN B COMP W-C CAPSULE PO SCH (11:14)
[2016-10-11] MEDS: CHLORZOXAZONE 500 MG TABLET PO SCH ×2 (11:35→17:36)
--- NOTE | 2016-10-11 11:35 | Physician Advisory Note ---
Physician Advisor ProgressNote .: Pursuant to the plan for [facility], I have reviewed the medical record for this patient. Physician Advisor Statement: Possible documentation opportunities if attending agrees: 1. "Acute Kidney Injury, on top of Chronic Kidney Dz stage 3, due to intravascular volume depletion" - 2. "Acute hyponatremia, due to " [ intravascular volume depletion? other cause? ] As always, if concerned about any unstable VS or abnormal labs, please comment on them & note what doing about them, & please document each day the potential clinical problems you are concerned could occur if pt not kept in hospital for tx at this time. Thanks for your help with documentation accuracy/specificity improvement! Jill Hedrick MD [facility] Physician Advisor, Fellow of Hospital Medicine
[2016-10-11 13:49] LABS: CREATINE KINASE MB 1.37 ng/mL (<4.55); TROPONIN I < 0.012 ng/mL
[2016-10-11] MEDS: CEFTRIAXONE 1 GM/D5W RTU 1 GM/50 ML RTUPB IV SCH (17:35)
--- NOTE | 2016-10-11 20:49 | CONSULTATION REPORT E ---
Consultation Report NAME: LI CHENG : 1940 AGE: 76Y DATE: 10/11/2016 334 A TO: CYRUS MARIE M.D. FROM: AURORA LOWRY M.D. Requesting Physician CHIEF COMPLAINT: Back pain. HISTORY OF PRESENT ILLNESS: The patient is a 76-year-old male with a history of Adrián cell cancer and brain metastases who was admitted on 10/09/2016 after having issues with increasing confusion, dehydration, instability and frequent falls. The patient was found to be acutely dehydrated with elevation in his serum creatinine. The patient has undergone IV hydration and also a round of IV antibiotics to treat potential suspected urinary tract infection as per the patient's . Apparently the patient had fall a number of weeks back with sudden onset of low back pain. He was notably seen at our clinic at [facility] and sent for an MRI, found to have a compression fracture at the L2 vertebral body which was acute in nature. The patient noticed today that he had pain on standing and walking. The pain is keeping him from being able to get to the bathroom the way that he wants to. He notes the pain is continuous in nature and does not really radiate anywhere. He rates his pain as a 5 out of 10 on numeric grading scale. He has not been taking medications. He does not want to take any more pills that might cause any confusion. He would like to discuss other options for treatment of his chronic pain condition. PAST MEDICAL HISTORY: 1. Hyperlipidemia. 2. Hypertension. 3. Asthma. 4. COPD. 5. Depression. 6. 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 SOCIAL HISTORY: Here today with his . He has not been a smoker and does not use any illicit substances. He lives at home with his and maintains function fairly independently. HOME MEDICATIONS: 1. Atenolol. 2. B complex vitamins. 3. Chlorzoxazone. 4. Cholecalciferol. 5. acid. 6. Furosemide. 7. Hydroxyzine. 8. Keppra. 9. Synthroid. 10. Singulair. 11. Protonix. 12. Potassium phosphate. 13. Zoloft. 14. Zocor. 15. Nucynta 50 mg p.o. q.i.d. p.r.n. 16. Spiriva. 17. Tramadol 50 mg p.o. t.i.d. p.r.n. Notably the patient has not recently been taking this Nucynta per his report. ALLERGIES: 1. CODEINE. 2. LATEX. 3. TETRACYCLINE. REVIEW OF SYSTEMS: The patient reports that he has not had much of an appetite lately and was not eating and drinking prior to coming here. He denies any overt stomach pain, but he has had a substantial weight loss. He denies any chest pain, shortness of breath at current. He does endorse back pain as per HPI. He does also endorse some pain in his right buttock after he fell on this location. He endorses some generalized weakness and gait instability. He denies any current dizziness. VITAL SIGNS: As previously referenced pain 5 out of 10 on numeric grading scale. Temperature 97.2. Pulse 53. Blood pressure 134/75. Respiratory rate 17. Saturation 100% on room air. PERTINENT LABORATORY VALUES: Recently hemoglobin and hematocrit 12.2 and 36.7, platelet count 281. Chemistry with an elevated creatinine at 1.46 today with a creatinine kinase of 247. Urinalysis did not appear to be positive for infection. There has been no growth in urine or blood culture over the past 24 hours. Lumbar spine MRI performed at outside facility demonstrated L2 vertebral compression fracture with no retropulsion. This was acute in nature notably. PHYSICAL EXAMINATION: GENERAL: The patient is resting comfortably in his bed today. He does wince with any movement, however. He is here today with his . He is oriented to person, place, and time. HEENT: Head is normocephalic, atraumatic. SKIN: He does have some excoriations over the forehead and scalp. CARDIOVASCULAR: Pulse is regular but bradycardic. RESPIRATORY: Even and unlabored work at breathing. MUSCULOSKELETAL: Moves all extremities x4. The patient rolls on his side. He is point tender along the upper lumbar spine in the midline only. He does have some bruising on the buttocks bilaterally status post recent fall which is also tender. NEUROLOGIC: No gross deficits in strength in the upper and lower extremities. No overt numbness or tingling appreciated on the extremities. IMPRESSION: 1. Lumbar vertebral compression fracture of the L2 vertebral body. 2. Acute pain due to fracture. 3. Recent acute kidney injury with current resolution. ASSESSMENT AND PLAN: The patient is a 76-year-old male who has recently sustained a compression fracture to his lower back which is currently causing painful symptoms. I had a long discussion with the patient and his today, and the patient is very hopeful to proceed with the procedure to help to alleviate this pain and expedite his healing process. He has previously heard of kyphoplasty and is very interested in pursuing this at this time. I discussed all risks and benefits at length with the patient. I will work through the schedule as soon as possible, most likely looking at Saturday considering that he is still on antibiotics and has recently had a Lovenox injection this morning. This will need to be held for approximately 24 hours prior to performing a kyphoplasty procedure. Otherwise, I will return to consent the patient and try to get OR time scheduled as soon as possible. This was discussed at length with the , and she is in agreement. Otherwise, the patient may use his pain medication as needed though he would prefer to avoid at this time. He is encouraged to continue working with physical therapy to get strength back and work on balance. DICTATING PHYSICIAN: CYRUS MARIE M.D. [id number] PHY#: [id number] ID: [id number] JOB#: [id number] ACCT: [id number] cc:CYRUS MARIE M.D. >
[2016-10-12] MEDS: LANSOPRAZOLE 15 MG TAB.RAP.DR PO SCH ×2 (05:24→18:15)
[2016-10-12 06:56] LABS: ABSOLUTE BASOPHILS # (AUTO) 0.1 10^3/uL (0.0-0.2); ABSOLUTE EOSINOPHILS # (AUTO) 0.5 10^3/uL (0.0-0.6); ABSOLUTE LYMPHOCYTES (AUTO) 1.4 10^3/uL (0.5-4.7); ABSOLUTE MONOCYTES (AUTO) 0.4 10^3/uL (0.1-1.4); ABSOLUTE NEUT (AUTO) 4.2 10^3/uL (1.7-8.2); BASOPHILS % (AUTO) 1.1 % (0-2); EOSINOPHILS % (AUTO) 7.5 % (0-6); HEMOGLOBIN 12.7 g/dL (13.5-17.0); HGB HCT DIFFERENCE 0.1; LYMPHOCYTES % (AUTO) 20.8 % (13-45); MEAN CORPUSCULAR HEMOGLOBIN 27.4 pg (27.0-33.4); MEAN CORPUSCULAR HGB CONC 33.4 g/dL (32.0-36.0); MEAN CORPUSCULAR VOLUME 82 fl (80-97); MONOCYTES % (AUTO) 6.5 % (3-13); RED BLOOD COUNT 4.63 10^6/uL (4.35-5.55); RED CELL DISTRIBUTION WIDTH 14.4 % (11.5-14.0); SEGMENTED NEUTROPHILS % (AUTO) 64.1 % (42-78); WHITE BLOOD COUNT 6.6 10^3/uL (4.0-10.5)
[2016-10-12 07:20] LABS: ANION GAP 11 (5-19); BLOOD UREA NITROGEN 14 mg/dL (7-20); CALCIUM 9.2 mg/dL (8.4-10.2); CARBON DIOXIDE 26 mmol/L (22-30); CHLORIDE 105 mmol/L (98-107); CREATININE RESULT 1.23 mg/dL (0.52-1.25); GLUCOSE 80 mg/dL (75-110); MAGNESIUM 1.9 mg/dL (1.6-2.3); POTASSIUM 3.6 mmol/L (3.6-5.0); SODIUM 142.4 mmol/L (137-145)
[2016-10-12] MEDS: TRAMADOL HCL 50 MG TABLET PO PRN ×2 (07:46→18:16)
[2016-10-12] MEDS: LEVOTHYROXINE SODIUM 0.1 MG TABLET PO SCH (07:47)
[2016-10-12] MEDS: ENOXAPARIN SODIUM INJ 40 MG/0.4 ML DISP.SYRIN SUBCUT SCH (07:49)
--- NOTE | 2016-10-12 08:34 | PDOC PROGRESS REPORT ---
Subjective Progress Note for:: 10/12/16 Subjective:: Patient doing better today, mental status is better no acute events overnight, Physical Exam Vital Signs: Temp Pulse Resp BP Pulse Ox 97.7 F 55 L 18 163/69 H 100 10/12/16 03:56 10/12/16 03:56 10/12/16 03:56 10/12/16 03:56 10/12/16 03:56 Intake & Output 10/11/16 10/12/16 10/13/16 06:59 06:59 06:59 Intake Total 1145 1828 Output Total 200 0 Balance 945 1828 Weight 86 kg 84.7 kg General appearance: PRESENT: no acute distress, well-developed, well-nourished Head exam: PRESENT: atraumatic, normocephalic Eye exam: PRESENT: conjunctiva pink, EOMI, PERRLA. ABSENT: scleral icterus Ear exam: PRESENT: normal external ear exam Mouth exam: PRESENT: moist, tongue midline Neck exam: ABSENT: carotid bruit, JVD, lymphadenopathy, thyromegaly Respiratory exam: PRESENT: clear to auscultation kay. ABSENT: rales, rhonchi, wheezes Cardiovascular exam: PRESENT: RRR. ABSENT: diastolic murmur, rubs, systolic murmur Pulses: PRESENT: normal dorsalis pedis pul Vascular exam: PRESENT: normal capillary refill GI/Abdominal exam: PRESENT: normal bowel sounds, soft. ABSENT: distended, guarding, mass, organolmegaly, rebound, tenderness Rectal exam: PRESENT: deferred Extremities exam: PRESENT: full ROM. ABSENT: calf tenderness, clubbing, pedal edema Neurological exam: PRESENT: alert, awake, oriented to person, oriented to place , oriented to time, oriented to situation, CN II-XII grossly intact. ABSENT: motor sensory deficit Psychiatric exam: PRESENT: appropriate affect, normal mood. ABSENT: homicidal ideation, suicidal ideation Skin exam: PRESENT: dry, intact, warm. ABSENT: cyanosis, rash Results Laboratory Results: 10/12/16 06:07 10/12/16 06:07 10/12/16 10/12/16 06:07 06:07 WBC 6.6 RBC 4.63 Hgb 12.7 L Hct 38.0 MCV 82 MCH 27.4 MCHC 33.4 RDW 14.4 H Plt Count 388 Seg Neutrophils % 64.1 Lymphocytes % 20.8 Monocytes % 6.5 Eosinophils % 7.5 H Basophils % 1.1 Absolute Neutrophils 4.2 Absolute Lymphocytes 1.4 Absolute Monocytes 0.4 Absolute Eosinophils 0.5 Absolute Basophils 0.1 Sodium 142.4 Potassium 3.6 Chloride 105 Carbon Dioxide 26 Anion Gap 11 BUN 14 Creatinine 1.23 Est GFR ( Amer) > 60 Est GFR (Non-Af Amer) 58 L Glucose 80 Calcium 9.2 Magnesium 1.9 10/09/16 10/09/16 10/10/16 20:15 20:15 02:05 Creatine Kinase 262 H 247 H CK-MB (CK-2) 1.16 Troponin I < 0.012 10/10/16 10/10/16 02:05 07:37 Creatine Kinase CK-MB (CK-2) 1.29 1.37 Troponin I < 0.012 < 0.012 Impressions: Head CT 10/09/16 12:14 IMPRESSION: No acute changes. 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 This is unchanged from MRI 08/01/2016, and CT brain 12/05/2015. Chest X-Ray 10/09/16 13:34 IMPRESSION: NO ACUTE RADIOGRAPHIC FINDING IN THE CHEST. Assessment & Plan - Diagnosis (1) Frequent falls Is this a current diagnosis for this admission?: YesPlan: Likely secondary to overall status, does not seem to be due to disease progression, hold on MRI (2) Compression fracture of fourth lumbar vertebra Qualifiers: Encounter type: initial encounter Fracture type: closed Qualified Code(s): S32.040A - Wedge compression fracture of fourth lumbar vertebra, initial encounter for closed fracture Is this a current diagnosis for this admission?: YesPlan: Plan for vertebroplasty (3) Complicated UTI (urinary tract infection) Is this a current diagnosis for this admission?: YesPlan: Continue for antibiotics (4) Adrián cell carcinoma Is this a current diagnosis for this admission?: YesPlan: Hold immunotherapy, plan for MRI of the brain next month as scheduled - Time Time Spent with patient: 25-34 minutes Critical Time spent with patient: 25-34 minutes
[2016-10-12] MEDS: MONTELUKAST SODIUM 10 MG TABLET PO SCH (10:22)
[2016-10-12] MEDS: CHOLECALCIFEROL (D3) 1,000 UNIT TABLET PO SCH (10:23)
[2016-10-12] MEDS: PHOSPHORUS #1 250 MG TABLET PO SCH (10:24)
[2016-10-12] MEDS: ATENOLOL 50 MG TABLET PO SCH ×2 (10:24→21:08)
[2016-10-12] MEDS: SERTRALINE HCL 50 MG TABLET PO SCH (10:24)
[2016-10-12] MEDS: FOLIC ACID/VITAMIN B COMP W-C CAPSULE PO SCH (10:25)
[2016-10-12] MEDS: LEVETIRACETAM 500 MG TABLET PO SCH ×2 (10:25→21:09)
[2016-10-12] MEDS: TIOTROPIUM BROMIDE DPI 5 CAP/KIT (18 MCG/CAP) IH SCH (10:28)
[2016-10-12] MEDS: CHLORZOXAZONE 500 MG TABLET PO SCH ×2 (10:30→18:17)
[2016-10-12] MEDS: LIDOCAINE 5% (700 MG) TRANSDERMAL ADH..PATCH TP SCH (10:32)
--- NOTE | 2016-10-12 12:26 | PDOC PROGRESS REPORT ---
Subjective Progress Note for:: 10/12/16 Subjective:: Patient is currently doing fair. Patient still have ongoing back problems and the pain management so possible scheduled for the vertebroplasty on Saturday. Otherwise patient's denied any chest pain denied any shortness of the breath. Physical Exam Vital Signs: Temp Pulse Resp BP Pulse Ox 97.7 F 51 L 18 150/50 H 99 10/12/16 07:50 10/12/16 07:50 10/12/16 07:50 10/12/16 07:50 10/12/16 07:50 Intake & Output 10/11/16 10/12/16 10/13/16 06:59 06:59 06:59 Intake Total 1145 1828 Output Total 200 0 Balance 945 1828 Weight 86 kg 84.7 kg General appearance: PRESENT: no acute distress, well-developed, well-nourished Head exam: PRESENT: atraumatic, normocephalic Eye exam: PRESENT: conjunctiva pink, EOMI, PERRLA. ABSENT: scleral icterus Ear exam: PRESENT: normal external ear exam Mouth exam: PRESENT: moist, tongue midline Neck exam: PRESENT: full ROM. ABSENT: carotid bruit, JVD, lymphadenopathy, thyromegaly Respiratory exam: PRESENT: clear to auscultation kay Cardiovascular exam: PRESENT: RRR. ABSENT: diastolic murmur, rubs, systolic murmur Pulses: PRESENT: normal dorsalis pedis pul, +2 pedal pulses bilateral Vascular exam: PRESENT: normal capillary refill GI/Abdominal exam: PRESENT: normal bowel sounds, soft. ABSENT: distended, guarding, mass, organolmegaly, rebound, tenderness Rectal exam: PRESENT: deferred Neurological exam: PRESENT: alert, awake, oriented to person, oriented to place , oriented to time, oriented to situation, CN II-XII grossly intact. ABSENT: motor sensory deficit Psychiatric exam: PRESENT: appropriate affect, normal mood. ABSENT: homicidal ideation, suicidal ideation Skin exam: PRESENT: dry, intact, warm. ABSENT: cyanosis, rash Results Laboratory Results: 10/12/16 06:07 10/12/16 06:07 10/12/16 10/12/16 06:07 06:07 WBC 6.6 RBC 4.63 Hgb 12.7 L Hct 38.0 MCV 82 MCH 27.4 MCHC 33.4 RDW 14.4 H Plt Count 388 Seg Neutrophils % 64.1 Lymphocytes % 20.8 Monocytes % 6.5 Eosinophils % 7.5 H Basophils % 1.1 Absolute Neutrophils 4.2 Absolute Lymphocytes 1.4 Absolute Monocytes 0.4 Absolute Eosinophils 0.5 Absolute Basophils 0.1 Sodium 142.4 Potassium 3.6 Chloride 105 Carbon Dioxide 26 Anion Gap 11 BUN 14 Creatinine 1.23 Est GFR ( Amer) > 60 Est GFR (Non-Af Amer) 58 L Glucose 80 Calcium 9.2 Magnesium 1.9 10/09/16 10/09/16 10/10/16 20:15 20:15 02:05 Creatine Kinase 262 H 247 H CK-MB (CK-2) 1.16 Troponin I < 0.012 10/10/16 10/10/16 02:05 07:37 Creatine Kinase CK-MB (CK-2) 1.29 1.37 Troponin I < 0.012 < 0.012 Impressions: Head CT 10/09/16 12:14 IMPRESSION: No acute changes. 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 This is unchanged from MRI 08/01/2016, and CT brain 12/05/2015. Chest X-Ray 10/09/16 13:34 IMPRESSION: NO ACUTE RADIOGRAPHIC FINDING IN THE CHEST. Assessment & Plan - Diagnosis (1) Weakness Is this a current diagnosis for this admission?: YesPlan: We will get the physical therapy evaluations and continues to monitor the patient's in the fall precautions and the cut down the all the statin to reduce the dose of the keppra (2) Dehydration Is this a current diagnosis for this admission?: YesPlan: Start the IV fluid (3) Frequent falls Is this a current diagnosis for this admission?: YesPlan: Most likely due to the new onset of the compression fracture. Patient's CT of the head is negative for any acute finding except patient have a metastatic disease which is unchanged (4) Compression fracture of fourth lumbar vertebra Qualifiers: Encounter type: initial encounter Fracture type: closed Qualified Code(s): S32.040A - Wedge compression fracture of fourth lumbar vertebra, initial encounter for closed fracture Is this a current diagnosis for this admission?: YesPlan: Follow with the pain management (5) Ataxia Is this a current diagnosis for this admission?: Yes (6) Adrián cell carcinoma Is this a current diagnosis for this admission?: YesPlan: Consult the oncology (7) Confusion Is this a current diagnosis for this admission?: Yes - Time Time Spent with patient: 15-24 minutes Medications reviewed and adjusted accordingly: Yes Anticipated discharge: Other Within: Other - Inpatient Certification Medical Necessity: Need Close Monitoring Due to Risk of Patient Decompensation 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 Discussed with the about the patient's current conditions
[2016-10-12] MEDS: CEFTRIAXONE 1 GM/D5W RTU 1 GM/50 ML RTUPB IV SCH (18:16)
[2016-10-12] MEDS ORDERED: TRAMADOL HCL 50 MG TABLET PO PRN ×2 (18:32→18:33)
[2016-10-12] MEDS ORDERED: TAMSULOSIN HCL 0.4 MG CAP.SR.24H PO ONE (19:00)
[2016-10-13] MEDS ORDERED: TAMSULOSIN HCL 0.4 MG CAP.SR.24H PO ONE (01:00)
[2016-10-13 05:06] LABS: ANION GAP 8 (5-19); BLOOD UREA NITROGEN 15 mg/dL (7-20); CALCIUM 9.1 mg/dL (8.4-10.2); CARBON DIOXIDE 24 mmol/L (22-30); CHLORIDE 105 mmol/L (98-107); CREATININE RESULT 1.19 mg/dL (0.52-1.25); GLUCOSE 77 mg/dL (75-110); POTASSIUM 3.7 mmol/L (3.6-5.0); SODIUM 136.8 mmol/L (137-145)
[2016-10-13] MEDS: LANSOPRAZOLE 15 MG TAB.RAP.DR PO SCH ×2 (05:29→17:25)
[2016-10-13] MEDS: ENOXAPARIN SODIUM INJ 40 MG/0.4 ML DISP.SYRIN SUBCUT SCH (07:40)
[2016-10-13] MEDS: LEVOTHYROXINE SODIUM 0.1 MG TABLET PO SCH (07:40)
--- NOTE | 2016-10-13 10:25 | PDOC PROGRESS REPORT ---
Subjective Progress Note for:: 10/13/16 Subjective:: Patient is currently doing fair scheduled for the vertebroplasty on a Saturday other than that no other events happen Physical Exam Vital Signs: Temp Pulse Resp BP Pulse Ox 97.5 F 56 L 15 143/56 H 100 10/13/16 07:32 10/13/16 07:32 10/13/16 07:32 10/13/16 07:32 10/13/16 07:32 Intake & Output 10/12/16 10/13/16 10/14/16 06:59 06:59 06:59 Intake Total 1828 2268 Output Total 0 950 Balance 1828 1318 Weight 84.7 kg 85.3 kg General appearance: PRESENT: no acute distress, well-developed, well-nourished Head exam: PRESENT: atraumatic, normocephalic Eye exam: PRESENT: conjunctiva pink, EOMI, PERRLA. ABSENT: scleral icterus Ear exam: PRESENT: normal external ear exam Mouth exam: PRESENT: moist, tongue midline Neck exam: PRESENT: full ROM. ABSENT: carotid bruit, JVD, lymphadenopathy, thyromegaly Respiratory exam: PRESENT: clear to auscultation kay Cardiovascular exam: PRESENT: RRR. ABSENT: diastolic murmur, rubs, systolic murmur Pulses: PRESENT: normal dorsalis pedis pul, +2 pedal pulses bilateral Vascular exam: PRESENT: normal capillary refill GI/Abdominal exam: PRESENT: normal bowel sounds, soft. ABSENT: distended, guarding, mass, organolmegaly, rebound, tenderness Rectal exam: PRESENT: deferred Neurological exam: PRESENT: alert, awake, oriented to person, oriented to place , oriented to time, oriented to situation, CN II-XII grossly intact. ABSENT: motor sensory deficit Psychiatric exam: PRESENT: appropriate affect, normal mood. ABSENT: homicidal ideation, suicidal ideation Skin exam: PRESENT: dry, intact, warm. ABSENT: cyanosis, rash Results Laboratory Results: 10/12/16 06:07 10/13/16 04:22 10/13/16 04:22 Sodium 136.8 L Potassium 3.7 Chloride 105 Carbon Dioxide 24 Anion Gap 8 BUN 15 Creatinine 1.19 Est GFR ( Amer) > 60 Est GFR (Non-Af Amer) > 60 Glucose 77 Calcium 9.1 10/09/16 10/09/16 10/10/16 20:15 20:15 02:05 Creatine Kinase 262 H 247 H CK-MB (CK-2) 1.16 Troponin I < 0.012 10/10/16 10/10/16 02:05 07:37 Creatine Kinase CK-MB (CK-2) 1.29 1.37 Troponin I < 0.012 < 0.012 Impressions: Head CT 10/09/16 12:14 IMPRESSION: No acute changes. 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 This is unchanged from MRI 08/01/2016, and CT brain 12/05/2015. Chest X-Ray 10/09/16 13:34 IMPRESSION: NO ACUTE RADIOGRAPHIC FINDING IN THE CHEST. Assessment & Plan - Diagnosis (1) Weakness Is this a current diagnosis for this admission?: YesPlan: We will get the physical therapy evaluations and continues to monitor the patient's in the fall precautions and the cut down the all the statin to reduce the dose of the keppra (2) Dehydration Is this a current diagnosis for this admission?: YesPlan: Start the IV fluid (3) Frequent falls Is this a current diagnosis for this admission?: Yes (4) Compression fracture of fourth lumbar vertebra Qualifiers: Encounter type: initial encounter Fracture type: closed Qualified Code(s): S32.040A - Wedge compression fracture of fourth lumbar vertebra, initial encounter for closed fracture Is this a current diagnosis for this admission?: YesPlan: Scheduled for the vertebroplasty on Saturday (5) Ataxia Is this a current diagnosis for this admission?: Yes (6) Adrián cell carcinoma Is this a current diagnosis for this admission?: YesPlan: Consult the oncology (7) Confusion Is this a current diagnosis for this admission?: Yes - Time Time Spent with patient: 15-24 minutes Medications reviewed and adjusted accordingly: Yes Anticipated discharge: Home Within: Other - Inpatient Certification Medical Necessity: Need Close Monitoring Due to Risk of Patient Decompensation 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
[2016-10-13] MEDS: MONTELUKAST SODIUM 10 MG TABLET PO SCH (10:48)
[2016-10-13] MEDS: FOLIC ACID/VITAMIN B COMP W-C CAPSULE PO SCH (10:48)
[2016-10-13] MEDS: SERTRALINE HCL 50 MG TABLET PO SCH (10:49)
[2016-10-13] MEDS: CHOLECALCIFEROL (D3) 1,000 UNIT TABLET PO SCH (10:49)
[2016-10-13] MEDS: ATENOLOL 50 MG TABLET PO SCH ×2 (10:49→21:14)
[2016-10-13] MEDS: LEVETIRACETAM 500 MG TABLET PO SCH ×2 (10:50→21:14)
[2016-10-13] MEDS: PHOSPHORUS #1 250 MG TABLET PO SCH (10:50)
[2016-10-13] MEDS: CHLORZOXAZONE 500 MG TABLET PO SCH ×2 (10:52→17:30)
[2016-10-13] MEDS: LIDOCAINE 5% (700 MG) TRANSDERMAL ADH..PATCH TP SCH (10:52)
[2016-10-13] MEDS: TIOTROPIUM BROMIDE DPI 5 CAP/KIT (18 MCG/CAP) IH SCH (10:52)
--- NOTE | 2016-10-13 11:46 | PDOC PROGRESS REPORT ---
Subjective Progress Note for:: 10/13/16 Subjective:: Patient doing much better, his walked him yesterday and in the afternoon he did much better, he was not as gait instable, he seems to be stronger. Physical Exam Vital Signs: Temp Pulse Resp BP Pulse Ox 97.5 F 56 L 15 143/56 H 100 10/13/16 07:32 10/13/16 07:32 10/13/16 07:32 10/13/16 07:32 10/13/16 07:32 Intake & Output 10/12/16 10/13/16 10/14/16 06:59 06:59 06:59 Intake Total 1828 2268 Output Total 0 950 Balance 1828 1318 Weight 84.7 kg 85.3 kg General appearance: PRESENT: no acute distress, well-developed, well-nourished Head exam: PRESENT: atraumatic, normocephalic Eye exam: PRESENT: conjunctiva pink, EOMI, PERRLA. ABSENT: scleral icterus Ear exam: PRESENT: normal external ear exam Mouth exam: PRESENT: moist, tongue midline Neck exam: ABSENT: carotid bruit, JVD, lymphadenopathy, thyromegaly Respiratory exam: PRESENT: clear to auscultation kay. ABSENT: rales, rhonchi, wheezes Cardiovascular exam: PRESENT: RRR. ABSENT: diastolic murmur, rubs, systolic murmur Pulses: PRESENT: normal dorsalis pedis pul Vascular exam: PRESENT: normal capillary refill GI/Abdominal exam: PRESENT: normal bowel sounds, soft. ABSENT: distended, guarding, mass, organolmegaly, rebound, tenderness Rectal exam: PRESENT: deferred Extremities exam: PRESENT: full ROM. ABSENT: calf tenderness, clubbing, pedal edema Neurological exam: PRESENT: alert, awake, oriented to person, oriented to place , oriented to time, oriented to situation, CN II-XII grossly intact. ABSENT: motor sensory deficit Psychiatric exam: PRESENT: appropriate affect, normal mood. ABSENT: homicidal ideation, suicidal ideation Skin exam: PRESENT: dry, intact, warm. ABSENT: cyanosis, rash Results Laboratory Results: 10/12/16 06:07 10/13/16 04:22 10/13/16 04:22 Sodium 136.8 L Potassium 3.7 Chloride 105 Carbon Dioxide 24 Anion Gap 8 BUN 15 Creatinine 1.19 Est GFR ( Amer) > 60 Est GFR (Non-Af Amer) > 60 Glucose 77 Calcium 9.1 10/09/16 10/09/16 10/10/16 20:15 20:15 02:05 Creatine Kinase 262 H 247 H CK-MB (CK-2) 1.16 Troponin I < 0.012 10/10/16 10/10/16 02:05 07:37 Creatine Kinase CK-MB (CK-2) 1.29 1.37 Troponin I < 0.012 < 0.012 Impressions: Head CT 10/09/16 12:14 IMPRESSION: No acute changes. 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 This is unchanged from MRI 08/01/2016, and CT brain 12/05/2015. Chest X-Ray 10/09/16 13:34 IMPRESSION: NO ACUTE RADIOGRAPHIC FINDING IN THE CHEST. Assessment & Plan - Diagnosis (1) Frequent falls Is this a current diagnosis for this admission?: YesPlan: Likely multifactorial, he probably does have an element of UTI, also medication related, probably pain related, less likely to be disease related. (2) Compression fracture of fourth lumbar vertebra Qualifiers: Encounter type: initial encounter Fracture type: closed Qualified Code(s): S32.040A - Wedge compression fracture of fourth lumbar vertebra, initial encounter for closed fracture Is this a current diagnosis for this admission?: YesPlan: Kyphoplasty planned on Saturday, hopefully this will decrease his pain needs as time goes on. (3) Complicated UTI (urinary tract infection) Is this a current diagnosis for this admission?: YesPlan: Continue his current therapy per medical team (4) Adrián cell carcinoma Is this a current diagnosis for this admission?: YesPlan: Further treatment plan as an outpatient, probably hold on immunotherapyFor 1-2 weeks post discharge. - Time Time Spent with patient: 35 or more minutes Critical Time spent with patient: 35 or more minutes Disposition: Today spent greater than 45 minutes in discussion with patient - Inpatient Certification Based on my medical assessment, after consideration of the patient's comorbidities, presenting symptoms, or acuity I expect that the services needed warrant INPATIENT care.: Yes I certify that my determination is in accordance with my understanding of Medicare's requirements for reasonable and necessary INPATIENT services [42 CFR 412.3e].: Yes Medical Necessity: Need for Surgery
[2016-10-13] MEDS: AMOXICILLIN TRIHYDRATE 500 MG CAPSULE PO SCH ×2 (15:22→21:15)
[2016-10-13] MEDS: TAMSULOSIN HCL 0.4 MG CAP.SR.24H PO SCH (17:24)
[2016-10-13] MEDS ORDERED: TAMSULOSIN HCL 0.4 MG CAP.SR.24H PO SCH (18:30)
[2016-10-14] MEDS: LANSOPRAZOLE 15 MG TAB.RAP.DR PO SCH ×2 (05:25→17:59)
[2016-10-14] MEDS: AMOXICILLIN TRIHYDRATE 500 MG CAPSULE PO SCH (05:25)
[2016-10-14 07:02] LABS: ANION GAP 9 (5-19); BLOOD UREA NITROGEN 17 mg/dL (7-20); CALCIUM 8.9 mg/dL (8.4-10.2); CARBON DIOXIDE 24 mmol/L (22-30); CHLORIDE 106 mmol/L (98-107); CREATININE RESULT 1.13 mg/dL (0.52-1.25); GLUCOSE 79 mg/dL (75-110); SODIUM 138.9 mmol/L (137-145)
[2016-10-14 07:05] LABS: POTASSIUM 3.7 mmol/L (3.6-5.0)
[2016-10-14] MEDS: LEVOTHYROXINE SODIUM 0.1 MG TABLET PO SCH (08:15)
[2016-10-14] MEDS: ENOXAPARIN SODIUM INJ 40 MG/0.4 ML DISP.SYRIN SUBCUT SCH (08:23)
[2016-10-14] MEDS: CHOLECALCIFEROL (D3) 1,000 UNIT TABLET PO SCH (09:26)
[2016-10-14] MEDS: PHOSPHORUS #1 250 MG TABLET PO SCH (09:26)
[2016-10-14] MEDS: MONTELUKAST SODIUM 10 MG TABLET PO SCH (09:26)
[2016-10-14] MEDS: SERTRALINE HCL 50 MG TABLET PO SCH (09:26)
[2016-10-14] MEDS: LEVETIRACETAM 500 MG TABLET PO SCH ×2 (09:27→21:07)
[2016-10-14] MEDS: CHLORZOXAZONE 500 MG TABLET PO SCH ×2 (09:27→17:58)
[2016-10-14] MEDS: FOLIC ACID/VITAMIN B COMP W-C CAPSULE PO SCH (09:28)
[2016-10-14] MEDS: TIOTROPIUM BROMIDE DPI 5 CAP/KIT (18 MCG/CAP) IH SCH (09:28)
[2016-10-14] MEDS: ATENOLOL 50 MG TABLET PO SCH (09:29)
--- NOTE | 2016-10-14 10:18 | PDOC PROGRESS REPORT ---
Subjective Progress Note for:: 10/14/16 Subjective:: Patient is currently doing well. Much better than yesterday. Denied any chest pain denied any shortness of the breath. Physical Exam Vital Signs: Temp Pulse Resp BP Pulse Ox 97.4 F 47 L 18 162/62 H 100 10/14/16 07:14 10/14/16 07:14 10/14/16 07:14 10/14/16 07:14 10/14/16 07:14 Intake & Output 10/13/16 10/14/16 10/15/16 06:59 06:59 06:59 Intake Total 2268 1912 Output Total 950 300 Balance 1318 1612 Weight 85.3 kg 86.8 kg General appearance: PRESENT: no acute distress, well-developed, well-nourished Head exam: PRESENT: atraumatic, normocephalic Eye exam: PRESENT: conjunctiva pink, EOMI, PERRLA. ABSENT: scleral icterus Ear exam: PRESENT: normal external ear exam Mouth exam: PRESENT: moist, tongue midline Neck exam: PRESENT: full ROM. ABSENT: carotid bruit, JVD, lymphadenopathy, thyromegaly Respiratory exam: PRESENT: clear to auscultation kay Cardiovascular exam: PRESENT: RRR. ABSENT: diastolic murmur, rubs, systolic murmur Pulses: PRESENT: normal dorsalis pedis pul, +2 pedal pulses bilateral Vascular exam: PRESENT: normal capillary refill GI/Abdominal exam: PRESENT: normal bowel sounds, soft. ABSENT: distended, guarding, mass, organolmegaly, rebound, tenderness Rectal exam: PRESENT: deferred Neurological exam: PRESENT: alert, awake, oriented to person, oriented to place , oriented to time, oriented to situation, CN II-XII grossly intact. ABSENT: motor sensory deficit Psychiatric exam: PRESENT: appropriate affect, normal mood. ABSENT: homicidal ideation, suicidal ideation Skin exam: PRESENT: dry, intact, warm. ABSENT: cyanosis, rash Results Laboratory Results: 10/12/16 06:07 10/14/16 05:08 10/14/16 05:08 Sodium 138.9 Potassium 3.7 Chloride 106 Carbon Dioxide 24 Anion Gap 9 BUN 17 Creatinine 1.13 Est GFR ( Amer) > 60 Est GFR (Non-Af Amer) > 60 Glucose 79 Calcium 8.9 05/10/09/16 10/10/16 20:15 20:15 02:05 Creatine Kinase 262 H 247 H CK-MB (CK-2) 1.16 Troponin I < 0.012 10/10/16 10/10/16 02:05 07:37 Creatine Kinase CK-MB (CK-2) 1.29 1.37 Troponin I < 0.012 < 0.012 Impressions: Head CT 10/09/16 12:14 IMPRESSION: No acute changes. 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 This is unchanged from MRI 08/01/2016, and CT brain 12/05/2015. Chest X-Ray 10/09/16 13:34 IMPRESSION: NO ACUTE RADIOGRAPHIC FINDING IN THE CHEST. Assessment & Plan - Diagnosis (1) Weakness Is this a current diagnosis for this admission?: YesPlan: Continues to physical therapy (2) Dehydration Is this a current diagnosis for this admission?: YesPlan: Resolved (3) Frequent falls Is this a current diagnosis for this admission?: YesPlan: Most likely due to the new onset of the compression fracture. Patient's CT of the head is negative for any acute finding except patient have a metastatic disease which is unchanged (4) Compression fracture of fourth lumbar vertebra Qualifiers: Encounter type: initial encounter Fracture type: closed Qualified Code(s): S32.040A - Wedge compression fracture of fourth lumbar vertebra, initial encounter for closed fracture Is this a current diagnosis for this admission?: YesPlan: Scheduled for the vertebroplasty on Saturday (5) Ataxia Is this a current diagnosis for this admission?: Yes (6) Adrián cell carcinoma Is this a current diagnosis for this admission?: Yes (7) Confusion Is this a current diagnosis for this admission?: Yes - Time Time Spent with patient: 15-24 minutes Medications reviewed and adjusted accordingly: Yes Anticipated discharge: Other Within: Other - Inpatient Certification Medical Necessity: Need for Surgery Post Hospital Care: D/C 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
[2016-10-14] MEDS: LIDOCAINE 5% (700 MG) TRANSDERMAL ADH..PATCH TP SCH (10:21)
[2016-10-14] MEDS ORDERED: ATENOLOL 50 MG TABLET PO ONE (11:30)
[2016-10-14] MEDS ORDERED: AMLODIPINE BESYLATE 2.5 MG TABLET PO ONE (11:30)
[2016-10-14] MEDS: TAMSULOSIN HCL 0.4 MG CAP.SR.24H PO SCH (17:59)
[2016-10-14] MEDS: AMLODIPINE BESYLATE 2.5 MG TABLET PO SCH (21:06)
[2016-10-15] MEDS ORDERED: DEXTROSE 40% GEL 15 GM TUBE PO PRN ×2 (00:01)
[2016-10-15] MEDS ORDERED: GLUCAGON,HUMAN RECOMB 1 MG INJ SUBCUT PRN (00:01)
[2016-10-15] MEDS ORDERED: DEXTROSE 50%-WATER 25 GM/50 ML DISP.SYRIN IV PRN ×2 (00:01)
[2016-10-15] MEDS: LANSOPRAZOLE 15 MG TAB.RAP.DR PO SCH ×2 (05:06→16:39)
[2016-10-15 05:40] LABS: ABSOLUTE BASOPHILS # (AUTO) 0.1 10^3/uL (0.0-0.2); ABSOLUTE EOSINOPHILS # (AUTO) 0.3 10^3/uL (0.0-0.6); ABSOLUTE LYMPHOCYTES (AUTO) 1.2 10^3/uL (0.5-4.7); ABSOLUTE MONOCYTES (AUTO) 0.4 10^3/uL (0.1-1.4); ABSOLUTE NEUT (AUTO) 3.3 10^3/uL (1.7-8.2); BASOPHILS % (AUTO) 1.3 % (0-2); EOSINOPHILS % (AUTO) 5.8 % (0-6); HEMATOCRIT 34.5 % (37.9-51.0); HGB HCT DIFFERENCE 1.5; LYMPHOCYTES % (AUTO) 23.2 % (13-45); MEAN CORPUSCULAR HEMOGLOBIN 27.6 pg (27.0-33.4); MEAN CORPUSCULAR HGB CONC 34.7 g/dL (32.0-36.0); MEAN CORPUSCULAR VOLUME 80 fl (80-97); MONOCYTES % (AUTO) 7.1 % (3-13); RED BLOOD COUNT 4.34 10^6/uL (4.35-5.55); RED CELL DISTRIBUTION WIDTH 14.2 % (11.5-14.0); SEGMENTED NEUTROPHILS % (AUTO) 62.6 % (42-78); WHITE BLOOD COUNT 5.2 10^3/uL (4.0-10.5)
[2016-10-15 05:46] LABS: PARTIAL THROMBOPLASTIN TIME 32.6 SEC (23.5-35.8); PROTHROMBIN TIME 14.2 SEC (11.4-15.4)
[2016-10-15] MEDS: LEVOTHYROXINE SODIUM 0.1 MG TABLET PO SCH (07:38)
--- NOTE | 2016-10-15 07:46 | PDOC PROGRESS REPORT ---
Subjective Progress Note for:: 10/15/16 Subjective:: Patient has been eating much better, he is planned for procedure today Physical Exam Vital Signs: Temp Pulse Resp BP Pulse Ox 97.8 F 47 L 16 148/58 H 99 10/15/16 04:12 10/15/16 06:49 10/15/16 04:12 10/15/16 04:12 10/15/16 04:12 Intake & Output 10/14/16 10/15/16 10/16/16 06:59 06:59 06:59 Intake Total 1912 515 Output Total 300 Balance 1612 515 Weight 86.8 kg 83.8 kg General appearance: PRESENT: no acute distress, well-developed, well-nourished Head exam: PRESENT: atraumatic, normocephalic Eye exam: PRESENT: conjunctiva pink, EOMI, PERRLA. ABSENT: scleral icterus Ear exam: PRESENT: normal external ear exam Mouth exam: PRESENT: moist, tongue midline Neck exam: ABSENT: carotid bruit, JVD, lymphadenopathy, thyromegaly Respiratory exam: PRESENT: clear to auscultation kay. ABSENT: rales, rhonchi, wheezes Cardiovascular exam: PRESENT: RRR. ABSENT: diastolic murmur, rubs, systolic murmur Pulses: PRESENT: normal dorsalis pedis pul Vascular exam: PRESENT: normal capillary refill GI/Abdominal exam: PRESENT: normal bowel sounds, soft. ABSENT: distended, guarding, mass, organolmegaly, rebound, tenderness Rectal exam: PRESENT: deferred Extremities exam: PRESENT: full ROM. ABSENT: calf tenderness, clubbing, pedal edema Neurological exam: PRESENT: alert, awake, oriented to person, oriented to place , oriented to time, oriented to situation, CN II-XII grossly intact. ABSENT: motor sensory deficit Psychiatric exam: PRESENT: appropriate affect, normal mood. ABSENT: homicidal ideation, suicidal ideation Skin exam: PRESENT: dry, intact, warm. ABSENT: cyanosis, rash Results Laboratory Results: 10/15/16 05:24 10/14/16 05:08 10/15/16 05:24 WBC 5.2 RBC 4.34 L Hgb 12.0 L Hct 34.5 L MCV 80 MCH 27.6 MCHC 34.7 RDW 14.2 H Plt Count 340 Seg Neutrophils % 62.6 Lymphocytes % 23.2 Monocytes % 7.1 Eosinophils % 5.8 Basophils % 1.3 Absolute Neutrophils 3.3 Absolute Lymphocytes 1.2 Absolute Monocytes 0.4 Absolute Eosinophils 0.3 Absolute Basophils 0.1 10/09/16 20:15 Blood Blood Culture - Final NO GROWTH IN 5 DAYS 10/09/16 19:00 Blood Blood Culture - Final NO GROWTH IN 5 DAYS 10/09/16 10/09/16 10/10/16 20:15 20:15 02:05 Creatine Kinase 262 H 247 H CK-MB (CK-2) 1.16 Troponin I < 0.012 10/10/16 10/10/16 02:05 07:37 Creatine Kinase CK-MB (CK-2) 1.29 1.37 Troponin I < 0.012 < 0.012 Impressions: Head CT 10/09/16 12:14 IMPRESSION: No acute changes. 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 This is unchanged from MRI 08/01/2016, and CT brain 12/05/2015. Chest X-Ray 10/09/16 13:34 IMPRESSION: NO ACUTE RADIOGRAPHIC FINDING IN THE CHEST. Assessment & Plan - Diagnosis (1) Frequent falls Is this a current diagnosis for this admission?: YesPlan: As noted previously, no further workup needed, MRI planned as an outpatient, continue with medication adjustment. (2) Compression fracture of fourth lumbar vertebra Qualifiers: Encounter type: initial encounter Fracture type: closed Qualified Code(s): S32.040A - Wedge compression fracture of fourth lumbar vertebra, initial encounter for closed fracture Is this a current diagnosis for this admission?: YesPlan: Plan for kyphoplasty, will follow up (3) Complicated UTI (urinary tract infection) Is this a current diagnosis for this admission?: YesPlan: Continue antibiotics (4) Adrián cell carcinoma Is this a current diagnosis for this admission?: YesPlan: Further rx planned as outpt, will have f/u in office to decide when to restart - Time Time Spent with patient: 15-24 minutes Critical Time spent with patient: 15-24 minutes
[2016-10-15] MEDS ORDERED: METOCLOPRAMIDE HCL INJ/PF 10 MG/2 ML SDV ONE (07:55)
[2016-10-15] MEDS ORDERED: LIDOCAINE 2% INJ-PF (20 MG/ML) 10 ML AMPUL ONE (07:55)
[2016-10-15] MEDS ORDERED: GLYCOPYRROLATE INJ 0.4 MG/2 ML VIAL ONE (07:55)
[2016-10-15] MEDS ORDERED: ONDANSETRON HCL INJ/PF 4 MG/2 ML SDV ONE (07:55)
--- NOTE | 2016-10-15 08:14 | PDOC PROGRESS REPORT ---
Subjective Progress Note for:: 10/15/16 Subjective:: Patient is currently doing fair patient scheduled for the vertebroplasty today. Patient's denied any chest pain denied any shortness of the breath. Patient' s heart rate was running 47-50 and atenolol dose was reduced. Patient was also put on Norvasc the patient's blood pressure is currently stable Physical Exam Vital Signs: Temp Pulse Resp BP Pulse Ox 97.8 F 47 L 16 148/58 H 99 10/15/16 04:12 10/15/16 06:49 10/15/16 04:12 10/15/16 04:12 10/15/16 04:12 Intake & Output 10/14/16 10/15/16 10/16/16 06:59 06:59 06:59 Intake Total 1912 515 Output Total 300 Balance 1612 515 Weight 86.8 kg 83.8 kg General appearance: PRESENT: no acute distress, well-developed, well-nourished Head exam: PRESENT: atraumatic, normocephalic Eye exam: PRESENT: conjunctiva pink, EOMI, PERRLA. ABSENT: scleral icterus Ear exam: PRESENT: normal external ear exam Mouth exam: PRESENT: moist, tongue midline Neck exam: PRESENT: full ROM. ABSENT: carotid bruit, JVD, lymphadenopathy, thyromegaly Cardiovascular exam: PRESENT: RRR. ABSENT: diastolic murmur, rubs, systolic murmur Pulses: PRESENT: normal dorsalis pedis pul, +2 pedal pulses bilateral Vascular exam: PRESENT: normal capillary refill GI/Abdominal exam: PRESENT: normal bowel sounds, soft. ABSENT: distended, guarding, mass, organolmegaly, rebound, tenderness Rectal exam: PRESENT: deferred Neurological exam: PRESENT: alert, awake, oriented to person, oriented to place , oriented to time, oriented to situation, CN II-XII grossly intact. ABSENT: motor sensory deficit Psychiatric exam: PRESENT: appropriate affect, normal mood. ABSENT: homicidal ideation, suicidal ideation Skin exam: PRESENT: dry, intact, warm. ABSENT: cyanosis, rash Results Laboratory Results: 10/15/16 05:24 10/14/16 05:08 10/15/16 05:24 WBC 5.2 RBC 4.34 L Hgb 12.0 L Hct 34.5 L MCV 80 MCH 27.6 MCHC 34.7 RDW 14.2 H Plt Count 340 Seg Neutrophils % 62.6 Lymphocytes % 23.2 Monocytes % 7.1 Eosinophils % 5.8 Basophils % 1.3 Absolute Neutrophils 3.3 Absolute Lymphocytes 1.2 Absolute Monocytes 0.4 Absolute Eosinophils 0.3 Absolute Basophils 0.1 10/09/16 20:15 Blood Blood Culture - Final NO GROWTH IN 5 DAYS 10/09/16 19:00 Blood Blood Culture - Final NO GROWTH IN 5 DAYS 10/09/16 10/09/16 10/10/16 20:15 20:15 02:05 Creatine Kinase 262 H 247 H CK-MB (CK-2) 1.16 Troponin I < 0.012 10/10/16 10/10/16 02:05 07:37 Creatine Kinase CK-MB (CK-2) 1.29 1.37 Troponin I < 0.012 < 0.012 Impressions: Head CT 10/09/16 12:14 IMPRESSION: No acute changes. 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 This is unchanged from MRI 08/01/2016, and CT brain 12/05/2015. Chest X-Ray 10/09/16 13:34 IMPRESSION: NO ACUTE RADIOGRAPHIC FINDING IN THE CHEST. Assessment & Plan - Diagnosis (1) Weakness Is this a current diagnosis for this admission?: YesPlan: Continues to physical therapy (2) Dehydration Is this a current diagnosis for this admission?: Yes (3) Frequent falls Is this a current diagnosis for this admission?: YesPlan: Most likely due to the new onset of the compression fracture. Patient's CT of the head is negative for any acute finding except patient have a metastatic disease which is unchanged (4) Compression fracture of fourth lumbar vertebra Qualifiers: Encounter type: initial encounter Fracture type: closed Qualified Code(s): S32.040A - Wedge compression fracture of fourth lumbar vertebra, initial encounter for closed fracture Is this a current diagnosis for this admission?: YesPlan: Scheduled for the vertebroplasty on Saturday (5) Ataxia Is this a current diagnosis for this admission?: Yes (6) [place] cell carcinoma Is this a current diagnosis for this admission?: YesPlan: Consult the oncology (7) Confusion Is this a current diagnosis for this admission?: Yes (8) Hypertension Qualifiers: Hypertension type: essential hypertension Qualified Code(s): I10 - Essential (primary) hypertension Is this a current diagnosis for this admission?: YesPlan: We reduced the atenolol 12.5 mg and continues to Norvasc 2.5 mg twice a day (9) Bradycardia Is this a current diagnosis for this admission?: YesPlan: Most likely due to the beta-donnell - Time Time Spent with patient: 15-24 minutes Medications reviewed and adjusted accordingly: Yes Anticipated discharge: Home Within: Other - Inpatient Certification Medical Necessity: Need Close Monitoring Due to Risk of Patient Decompensation 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
[2016-10-15] MEDS: TIOTROPIUM BROMIDE DPI 5 CAP/KIT (18 MCG/CAP) IH SCH (09:34)
[2016-10-15] MEDS: CHOLECALCIFEROL (D3) 1,000 UNIT TABLET PO SCH (09:54)
[2016-10-15] MEDS: AMLODIPINE BESYLATE 2.5 MG TABLET PO SCH ×2 (09:54→21:10)
[2016-10-15] MEDS: FOLIC ACID/VITAMIN B COMP W-C CAPSULE PO SCH (09:54)
[2016-10-15] MEDS: LEVETIRACETAM 500 MG TABLET PO SCH ×2 (09:54→21:09)
[2016-10-15] MEDS: PHOSPHORUS #1 250 MG TABLET PO SCH (09:54)
[2016-10-15] MEDS: CHLORZOXAZONE 500 MG TABLET PO SCH ×2 (09:54→17:54)
[2016-10-15] MEDS: ATENOLOL 50 MG TABLET PO SCH (09:54)
[2016-10-15] MEDS: LIDOCAINE 5% (700 MG) TRANSDERMAL ADH..PATCH TP SCH (09:54)
[2016-10-15] MEDS: MONTELUKAST SODIUM 10 MG TABLET PO SCH (09:54)
[2016-10-15] MEDS: SERTRALINE HCL 50 MG TABLET PO SCH (09:54)
[2016-10-15] MEDS ORDERED: ATENOLOL 50 MG TABLET PO SCH (10:00)
[2016-10-15] MEDS ORDERED: LIDOCAINE 1% INJ-PF (10 MG/ML) 30 ML SDV ONE (11:16)
[2016-10-15] MEDS ORDERED: KETAMINE HCL INJ 500 MG/10 ML VIAL ONE (11:38)
[2016-10-15] MEDS ORDERED: FENTANYL CITRATE INJ/PF 100 MCG/2 ML AMPUL ONE (11:38)
[2016-10-15] MEDS ORDERED: MIDAZOLAM 2 MG/2 ML INJ ONE ×2 (11:39)
[2016-10-15] MEDS ORDERED: PROPOFOL INJ 200 MG/20 ML VIAL IV ONE (11:39)
[2016-10-15] MEDS ORDERED: ACETAMINOPHEN 100 ML IV ONE (11:39)
[2016-10-15] MEDS ORDERED: CEFAZOLIN INJ 1 GM VIAL ONE (11:42)
--- NOTE | 2016-10-15 11:52 | EKG REPORT ---
SEVERITY:- BORDERLINE ECG - SINUS BRADYCARDIA BORDERLINE T ABNORMALITIES, LATERAL LEADS : Confirmed by: Zachary Mckeon MD 15-Oct-2016 11:52:04
[2016-10-15 12:20] LABS: AMORPHOUS SEDIMENT,URINE TRACE /HPF; APPEARANCE,URINE CLOUDY; BILIRUBIN,URINE NEGATIVE (NEGATIVE); GLUCOSE, URINE NEGATIVE (NEGATIVE); KETONES,URINE NEGATIVE (NEGATIVE); LEUKOCYTE ESTERASE,URINE NEGATIVE (NEGATIVE); NITRITE,URINE NEGATIVE (NEGATIVE); PROTEIN,URINE NEGATIVE (NEGATIVE); URINE SPECIFIC GRAVITY 1.013; UROBILINOGEN,URINE NEGATIVE mg/dL (<2.0)
--- NOTE | 2016-10-15 14:05 | RADIOLOGY REPORT (SQ) ---
EXAM DESCRIPTION: NO CHG FLUORO; L SPINE 2 VIEWS COMPLETED DATE/TIME: 10/15/2016 1:47 pm REASON FOR STUDY: KYPHOPLASTY L2 ASSISTED WITH FLUORO IN OR COMPARISON: None. FLUOROSCOPY TIME: 2.2 minutes. 37 images saved to PACS. TECHNIQUE: Intra-operative images acquired during surgical procedure to evaluate progress. NUMBER OF IMAGES: 37 images. LIMITATIONS: None. FINDINGS: Images acquired during kyphoplasty procedure. IMPRESSION: IMAGE(S) OBTAINED DURING PROCEDURE. COMMENT: Quality ID [id number]: Final reports for procedures using fluoroscopy that document radiation exp osure indices, or exposure time and number of fluorographic images (if radiation exposure indices are not available) Please consult full operative report of the attending physician for description of the procedure. TECHNICAL DOCUMENTATION: JOB ID: [id number] [employer]- All Rights Reserved
--- NOTE | 2016-10-15 14:05 | RADIOLOGY REPORT (SQ) ---
EXAM DESCRIPTION: NO CHG FLUORO; L SPINE 2 VIEWS COMPLETED DATE/TIME: 10/15/2016 1:47 pm REASON FOR STUDY: KYPHOPLASTY L2 ASSISTED WITH FLUORO IN OR COMPARISON: None. FLUOROSCOPY TIME: 2.2 minutes. 37 images saved to PACS. TECHNIQUE: Intra-operative images acquired during surgical procedure to evaluate progress. NUMBER OF IMAGES: 37 images. LIMITATIONS: None. FINDINGS: Images acquired during kyphoplasty procedure. IMPRESSION: IMAGE(S) OBTAINED DURING PROCEDURE. COMMENT: Quality ID [id number]: Final reports for procedures using fluoroscopy that document radiation exp osure indices, or exposure time and number of fluorographic images (if radiation exposure indices are not available) Please consult full operative report of the attending physician for description of the procedure. TECHNICAL DOCUMENTATION: JOB ID: [id number] [employer]- All Rights Reserved
[2016-10-15] MEDS: TRAMADOL HCL 50 MG TABLET PO PRN (16:39)
[2016-10-15] MEDS: TAMSULOSIN HCL 0.4 MG CAP.SR.24H PO SCH (17:54)
[2016-10-15] MEDS ORDERED: PHARMACY COMMUNICATION ORDER MC SCH (22:00)
[2016-10-16] MEDS: LANSOPRAZOLE 15 MG TAB.RAP.DR PO SCH (05:11)
--- NOTE | 2016-10-16 07:25 | OPERATIVE REPORT E ---
Operative Report NAME: LI CHENG : 1940 AGE: 76Y DATE OF SURGERY: 10/15/2016 ROOM: 334 PREOPERATIVE DIAGNOSIS: Compression fracture at the L2 vertebral body. POSTOPERATIVE DIAGNOSIS: Compression fracture at the L2 vertebral body. PROCEDURES PERFORMED: 1. Percutaneous balloon kyphoplasty in a bipedicular approach at the L2 vertebral body. 2. Bone biopsy of said vertebral fracture. SURGEON: CYRUS MARIE M.D. None. ESTIMATED BLOOD LOSS: 5 mL. FLUIDS: 600 mL of balanced crystalloid solution. PERIOPERATIVE ANTIBIOTICS: Ancef 2 g. OPERATIVE FINDINGS: Excellent spread of methylmethacrylate bone cement throughout the L2 vertebral body with no extravasation of cement appreciated. INDICATIONS: The patient is a pleasant 76-year-old male who had a recent traumatic fall resulting in L2 vertebral compression fracture. The patient has had ongoing pain which has kept him hospitalized. Risks and benefits of kyphoplasty procedure were discussed with patient in detail and he wished to proceed with this particular procedure. Risks include but are not limited to bleeding, bruising, infection, injury to nerves/arteries/veins, failure to ameliorate pain, extravasation of cement, embolus, paralysis, loss of bowel or bladder function, and even . The patient expressed understanding. OPERATIVE DETAIL: The patient was taken to the operative suite and positioned in prone position. All pressure points were checked and padded. IV Ancef was administered and sedation was administered by Anesthesia. The patient was prepped and draped in sterile fashion using chlorhexidine gluconate solution, an Ioban drape, and a sterile C-arm drape. Notably 2 C-arms were prepped into the field, one in lateral angulation and one in AP angulation. The fracture at L2 was identified under AP and lateral fluoroscopy and planned sites for injection were marked. The skin overlying planned sites for injection was anesthetized with 1% buffered lidocaine on a 25-gauge 1 inch needle. Deeper tissues were then infiltrated with a 25-gauge 3.5 inch spinal needle. Incision was made using a 15 blade scalpel. Subsequently, a pola tipped trocar was advanced under intermittent AP and lateral fluoroscopic guidance to make contact with the lateral margin of the right L2 pedicle. The trocar was advanced through the pedicle into the vertebral body taking great care to avoid any violation of the pedicle wall. Once the trocar was advanced into the cortex of the vertebral body, a core biopsy was obtained and sent to pathology. Subsequently a drill was advanced to just shy of the anterior border of the vertebral body. Following this, a balloon was inserted and some mild reapproximation of the vertebral body height was actually appreciated. Pressures were noted to be low throughout with no more than 250 PSI with degradation. The procedure was performed in the exact same fashion on the left pedicle. Notably, the bevelled tip introducer was used predominantly with advancement through the left pedicle, again no violation of the pedicle wall was noted in angulation. Once the second balloon was in place, the cement was mixed on the back table. Once the cement had thickened to an appropriate viscosity, the cement was injected through the introducer device inserted into the trocar. A total of 7 mL of methylmethacrylate cement was injected into the L2 vertebral body through both pedicles in total. There was no extravasation of cement and all was well contained within the vertebral body. At this point, the cement application device was removed and the bevels were replaced into the introducer. This was allowed to set for approximately 1 minute and then the trocars were removed with again confirmation of no extravasation of cement. There was excellent spread throughout the L2 vertebral body. The patient will return to his room as he is an inpatient and hopefully he will be able to be discharged tomorrow. He will follow with [facility] as needed for postoperative check. DICTATING PHYSICIAN: CYRUS MARIE M.D. [id number] PHY#: [id number] ID: [id number] JOB#: [id number] ACCT: [id number] cc:CYRUS MARIE M.D. > MTDD
[2016-10-16] MEDS: TRAMADOL HCL 50 MG TABLET PO PRN (07:56)
[2016-10-16] MEDS: LEVOTHYROXINE SODIUM 0.1 MG TABLET PO SCH (07:57)
[2016-10-16] MEDS ORDERED: ENOXAPARIN SODIUM INJ 40 MG/0.4 ML DISP.SYRIN SUBCUT SCH (08:00)
--- NOTE | 2016-10-16 08:19 | PDOC PROGRESS REPORT ---
Subjective Progress Note for:: 10/16/16 Subjective:: Patient tolerated procedure well, patient has been on tramadol Physical Exam Vital Signs: Temp Pulse Resp BP Pulse Ox 97.5 F 50 L 18 172/61 H 100 10/16/16 07:24 10/16/16 07:24 10/16/16 07:24 10/16/16 07:24 10/16/16 07:24 Intake & Output 10/15/16 10/16/16 10/17/16 06:59 06:59 06:59 Intake Total 515 953 Output Total 805.5 Balance 515 147.5 Weight 83.8 kg 84.7 kg General appearance: PRESENT: no acute distress, well-developed, well-nourished Head exam: PRESENT: atraumatic, normocephalic Eye exam: PRESENT: conjunctiva pink, EOMI, PERRLA. ABSENT: scleral icterus Ear exam: PRESENT: normal external ear exam Mouth exam: PRESENT: moist, tongue midline Neck exam: ABSENT: carotid bruit, JVD, lymphadenopathy, thyromegaly Respiratory exam: PRESENT: clear to auscultation kay. ABSENT: rales, rhonchi, wheezes Cardiovascular exam: PRESENT: RRR. ABSENT: diastolic murmur, rubs, systolic murmur Pulses: PRESENT: normal dorsalis pedis pul Vascular exam: PRESENT: normal capillary refill GI/Abdominal exam: PRESENT: normal bowel sounds, soft. ABSENT: distended, guarding, mass, organolmegaly, rebound, tenderness Rectal exam: PRESENT: deferred Extremities exam: PRESENT: full ROM. ABSENT: calf tenderness, clubbing, pedal edema Neurological exam: PRESENT: alert, awake, oriented to person, oriented to place , oriented to time, oriented to situation, CN II-XII grossly intact. ABSENT: motor sensory deficit Psychiatric exam: PRESENT: appropriate affect, normal mood. ABSENT: homicidal ideation, suicidal ideation Skin exam: PRESENT: dry, intact, warm. ABSENT: cyanosis, rash Results Laboratory Results: 10/15/16 05:24 10/14/16 05:08 10/15/16 11:49 Urine Color YELLOW Urine Appearance CLOUDY Urine pH 7.0 Ur Specific [place] 1.013 Urine Protein NEGATIVE Urine Glucose (UA) NEGATIVE Urine Ketones NEGATIVE Urine Blood NEGATIVE Urine Nitrite NEGATIVE Ur Leukocyte Esterase NEGATIVE Urine WBC (Auto) 2 Urine RBC (Auto) 0 05/16/17 05/16/17 05/17/17 20:15 20:15 02:05 Creatine Kinase 262 H 247 H CK-MB (CK-2) 1.16 Troponin I < 0.012 10/10/16 10/10/16 02:05 07:37 Creatine Kinase CK-MB (CK-2) 1.29 1.37 Troponin I < 0.012 < 0.012 Impressions: Head CT 10/09/16 12:14 IMPRESSION: No acute changes. 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 This is unchanged from MRI 08/01/2016, and CT brain 12/05/2015. Chest X-Ray 10/09/16 13:34 IMPRESSION: NO ACUTE RADIOGRAPHIC FINDING IN THE CHEST. Fluoroscopy 10/15/16 00:00 IMPRESSION: IMAGE(S) OBTAINED DURING PROCEDURE. Lumbar Spine X-Ray 10/15/16 00:00 IMPRESSION: IMAGE(S) OBTAINED DURING PROCEDURE. Assessment & Plan - Diagnosis (1) Frequent falls Is this a current diagnosis for this admission?: YesPlan: Multifactorial with medication probably contributing as well as the pain, kyphoplasty is completed. Need to minimize those medications as an outpatient, which will be done. (2) Compression fracture of fourth lumbar vertebra Qualifiers: Encounter type: initial encounter Fracture type: closed Qualified Code(s): S32.040A - Wedge compression fracture of fourth lumbar vertebra, initial encounter for closed fracture Is this a current diagnosis for this admission?: YesPlan: Status post kyphoplasty, further follow-up as an outpatient with pain management (3) Complicated UTI (urinary tract infection) Is this a current diagnosis for this admission?: YesPlan: Treated with antibiotics, primary team will decide whether to send him with antibiotics. (4) [place] cell carcinoma Is this a current diagnosis for this admission?: YesPlan: We will plan on further immunotherapy to be started most likely next 2 weeks.
[2016-10-16 09:23] VITALS: BP 160/60
[2016-10-16] MEDS: LEVETIRACETAM 500 MG TABLET PO SCH (09:25)
[2016-10-16] MEDS: SERTRALINE HCL 50 MG TABLET PO SCH (09:25)
[2016-10-16] MEDS: PHOSPHORUS #1 250 MG TABLET PO SCH (09:25)
[2016-10-16] MEDS: CHLORZOXAZONE 500 MG TABLET PO SCH (09:26)
[2016-10-16] MEDS: ATENOLOL 50 MG TABLET PO SCH (09:26)
[2016-10-16] MEDS: FOLIC ACID/VITAMIN B COMP W-C CAPSULE PO SCH (09:26)
[2016-10-16] MEDS: CHOLECALCIFEROL (D3) 1,000 UNIT TABLET PO SCH (09:26)
[2016-10-16] MEDS: AMLODIPINE BESYLATE 2.5 MG TABLET PO SCH (09:27)
[2016-10-16] MEDS: MONTELUKAST SODIUM 10 MG TABLET PO SCH (09:27)
[2016-10-16] MEDS: LIDOCAINE 5% (700 MG) TRANSDERMAL ADH..PATCH TP SCH (09:28)
[2016-10-16] MEDS: TIOTROPIUM BROMIDE DPI 5 CAP/KIT (18 MCG/CAP) IH SCH (09:28)
--- NOTE | 2016-10-16 10:09 | PDOC DISCHARGE SUMMARY ---
General - Admit/Disc Date/PCP Admission Date/Primary Care Provider: 10/09/16 16:35 AURORA LOWRY MD Discharge Date: 10/16/16 - Discharge Diagnosis (1) Weakness Is this a current diagnosis for this admission?: YesSummary: All getting better (2) Dehydration Is this a current diagnosis for this admission?: YesSummary: All resolved (3) Frequent falls Is this a current diagnosis for this admission?: YesSummary: Continues to physical therapy and fall precautions (4) Compression fracture of fourth lumbar vertebra Is this a current diagnosis for this admission?: YesSummary: Status post vertebroplasty follow with the pain management (5) Ataxia Is this a current diagnosis for this admission?: Yes (6) [place] cell carcinoma Is this a current diagnosis for this admission?: YesSummary: Follow with the oncology (7) Confusion Is this a current diagnosis for this admission?: YesSummary: All resolved (8) Hypertension Is this a current diagnosis for this admission?: YesSummary: Add the Norvasc 2.5 mg twice a day and cut down the atenolol 12.5 mg daily (9) Bradycardia Is this a current diagnosis for this admission?: YesSummary: Cut down the external currently all stable with a heart rate running 60-70 range - Additional Information Resuscitation Status: Full Code Discharge Diet: As Tolerated Discharge Activity: Activity As Tolerated Home Medications: B Complex & C No.20/Folic Acid [Renal Caps Softgel] 1 cap PO DAILY 10/09/16 Chlorzoxazone [Lorzone] 375 mg PO BID 10/09/16 Cholecalciferol (Vitamin D3) [Vitamin D3 1000 Unit Tablet] 1,000 units PO DAILY 10/09/16 Fenofibric Acid (Choline) [Fenofibric Acid] 135 mg PO DAILY 10/09/16 Levetiracetam [Keppra 500 mg Tablet] 1,000 mg PO Q12 10/09/16 Levothyroxine Sodium [Synthroid 0.1 mg Tablet] 0.1 mg PO DAILY 10/09/16 Montelukast Sodium [Singulair 10 mg Tablet] 10 mg PO DAILY 10/09/16 Pantoprazole Sodium [Protonix] 40 mg PO DAILY 10/09/16 Phosphorus #1 [K-Phos Neutral 250 mg Tablet] 125 mg PO DAILY 10/09/16 Sertraline HCl [Zoloft] 100 mg PO DAILY 10/09/16 Tapentadol Hydrochloride [Nucynta] 50 mg PO QID 10/09/16 Tiotropium Gilbert [Spiriva Handihaler 18 mcg/dose (30 Dose)] 1 puff IH DAILY Tramadol HCl [Ultram 50 mg Tablet] 50 mg PO TIDP PRN 10/09/16 Amlodipine Besylate [Norvasc 2.5 mg Tablet] 2.5 mg PO Q12 #60 tablet 10/16/16 Atenolol [Tenormin 50 mg Tablet] 12.5 mg PO DAILY #30 tablet 10/16/16 Tamsulosin HCl [Flomax 0.4 mg Cap.sr] 0.4 mg PO DAILY@1830 #30 cap.sr.24h Tramadol HCl [Ultram 50 mg Tablet] 50 mg PO Q4HP PRN #0 tablet 10/16/16 History of Present Illness History of Present Illness: LI CHENG is a 76 year old male This is a 72-year-old male with the history of the [place] cell cancer with the brain metastasis presents with increasing confusion and instability with frequent falls over the last 1 week. Patient had a fall about 1 week ago and had a heat is head. That might is seems more tremulous and since then he has increasing confusions and various area of the pain. This included in the back which patient's went to see her Dr. Larry Argueta and had a MRI was done and formed acute compression fracture, L2. Patient's any denied any neurological symptoms other than that weakness. According to the right patient have a urinary tract infections couple of weeks back and the patient was feeling the same carpal confusions. Patient is going to see the oncology today and the ascending to the emergency department because of the all the weakness in the confusions. Patient's denied any cough any congestion patient's denied any urinary symptoms. Patient started the new center for the pain but patient's did not taking any medication yet Patient's also currently on immunotherapy and patient's complaining some rash on the skin Hospital Course Hospital Course: This is a 76-year-old male present in the oncology office with a complaint of weakness and frequent fall and patient was sent to the emergency department with patient's CT of the head was negative. Patient have MRI of the LS spine was done and was so some vertebral fractures and patient underwent for the vertebroplasty. Patient's also getting IV fluid in the physical therapy Patient's blood pressure medication was adjusted Otherwise patient's back to the normal discussed with the patient and the and other coordinate care and patient's discharge home with the stable conditions Physical Exam Vital Signs: Temp Pulse Resp BP Pulse Ox 98.7 F 63 18 160/60 H 96 10/16/16 09:21 10/16/16 09:21 10/16/16 09:21 10/16/16 09:21 10/16/16 09:21 Intake & Output 10/15/16 10/16/16 10/17/16 06:59 06:59 06:59 Intake Total 515 953 Output Total 805.5 Balance 515 147.5 Weight 83.8 kg 84.7 kg General appearance: PRESENT: no acute distress, well-developed, well-nourished Head exam: PRESENT: atraumatic, normocephalic Eye exam: PRESENT: conjunctiva pink, EOMI, PERRLA. ABSENT: scleral icterus Ear exam: PRESENT: normal external ear exam Mouth exam: PRESENT: moist, tongue midline Neck exam: PRESENT: full ROM. ABSENT: carotid bruit, JVD, lymphadenopathy, thyromegaly Respiratory exam: PRESENT: clear to auscultation kay Cardiovascular exam: PRESENT: RRR. ABSENT: diastolic murmur, rubs, systolic murmur Pulses: PRESENT: normal dorsalis pedis pul, +2 pedal pulses bilateral Vascular exam: PRESENT: normal capillary refill GI/Abdominal exam: PRESENT: normal bowel sounds, soft. ABSENT: distended, guarding, mass, organolmegaly, rebound, tenderness Rectal exam: PRESENT: deferred Neurological exam: PRESENT: alert, awake, oriented to person, oriented to place , oriented to time, oriented to situation, CN II-XII grossly intact. ABSENT: motor sensory deficit Psychiatric exam: PRESENT: appropriate affect, normal mood. ABSENT: homicidal ideation, suicidal ideation Skin exam: PRESENT: dry, intact, warm. ABSENT: cyanosis, rash Results Laboratory Results: 10/15/16 05:24 10/14/16 05:08 10/15/16 11:49 Urine Color YELLOW Urine Appearance CLOUDY Urine pH 7.0 Ur Specific [place] 1.013 Urine Protein NEGATIVE Urine Glucose (UA) NEGATIVE Urine Ketones NEGATIVE Urine Blood NEGATIVE Urine Nitrite NEGATIVE Ur Leukocyte Esterase NEGATIVE Urine WBC (Auto) 2 Urine RBC (Auto) 0 10/09/16 10/09/16 10/10/16 20:15 20:15 02:05 Creatine Kinase 262 H 247 H CK-MB (CK-2) 1.16 Troponin I < 0.012 10/10/16 10/10/16 02:05 07:37 Creatine Kinase CK-MB (CK-2) 1.29 1.37 Troponin I < 0.012 < 0.012 Impressions: Head CT 10/09/16 12:14 IMPRESSION: No acute changes. 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 This is unchanged from MRI 08/01/2016, and CT brain 12/05/2015. Chest X-Ray 10/09/16 13:34 IMPRESSION: NO ACUTE RADIOGRAPHIC FINDING IN THE CHEST. Fluoroscopy 10/15/16 00:00 IMPRESSION: IMAGE(S) OBTAINED DURING PROCEDURE. Lumbar Spine X-Ray 10/15/16 00:00 IMPRESSION: IMAGE(S) OBTAINED DURING PROCEDURE. Plan Time Spent: Greater than 30 Minutes - Very extensive discussions with the patient and the and other coordinate physicians and patient's currently all stable. Patient's p.o. intake is fair patients did walk with the physical therapy and arrange the home health and physical therapy and discussed with the patient and the about the fall precautions. Follow in office in 1 week Recheck the blood pressures medications
== END 2016-10-16 09:54 | disposition home or self-care (01) | DRG 478 ==
LOC: ER 12:04 → EH 16:35 → UNDOADMIN 16:40 → EH 16:40 → 3S 10-10 16:00
PROVIDERS: ADMIT Family Medicine; ATTEND Family Medicine
PROC: 3E0F73Z Introduction of Anti-inflammatory into Respiratory Tract, Via Natural or Artificial Opening (ICD-10-PCS; 2016-10-11)
PROC: 0QS03ZZ Reposition Lumbar Vertebra, Percutaneous Approach (ICD-10-PCS; 2016-10-15)
PROC: 0QU03JZ Supplement Lumbar Vertebra with Synthetic Substitute, Percutaneous Approach (ICD-10-PCS; 2016-10-15)
PROC: 0QB03ZX Excision of Lumbar Vertebra, Percutaneous Approach, Diagnostic (ICD-10-PCS; principal; 2016-10-15 12:30)
DX: S32.040A Wedge compression fracture of fourth lumbar vertebra, initial encounter for closed fracture (principal); N39.0 Urinary tract infection, site not specified; C79.31 Secondary malignant neoplasm of brain; N17.9 Acute kidney failure, unspecified; E86.0 Dehydration; R27.0 Ataxia, unspecified; I10 Essential (primary) hypertension; R00.1 Bradycardia, unspecified; C4A.9 Merkel cell carcinoma, unspecified; E78.5 Hyperlipidemia, unspecified; J44.9 Chronic obstructive pulmonary disease, unspecified; F32.9 Major depressive disorder, single episode, unspecified; Z91.81 History of falling; Z79.899 Other long term (current) drug therapy; Z88.3 Allergy status to other anti-infective agents; Z88.6 Allergy status to analgesic agent; Z91.040 Latex allergy status
CPT/HCPCS: 01936; 36415; 70450; 71010; 72100; 80048; 80053; 81001; 82550; 82553; 83735; 84443; 84484; 85025; 85610; 85730; 87040; 87086; 87088; 88305; 88311; 88342; 93005; 93010; 99285; G8978-GP; G8979-GP; J0131; J0690; J0696; J1650; J2250; J2405; J2704; J2765; J3010; J3490; J7030; Q9966

== ENCOUNTER → 2016-11-18 | Outpatient (CLI) | payer MEDICARE, OTHER ==
--- NOTE | 2016-11-19 09:14 | RADIOLOGY REPORT (SQ) ---
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 TECHNIQUE: Blood glucose level was verified. Above dose of FDG was injected intravenously. 2-D seg mented attenuation correction images were obtained from the base of the skull to the midthighs. Nonc ontrast CT images were obtained for attenuation correction and fusion with emission images. CT image s were performed without oral or intravenous contrast and are not sensitive for parenchymal lesions. A series of overlapping emission PET images were obtained. Images reviewed and manipulated at [facility] work station by the radiologist. Images stored on PACS. LIMITATIONS: None. FINDINGS: HEAD AND NECK: There is midline increased activity along floor of mouth/genioglossus with SUV of 7.4. This could be artifact for the patient talking after injection. A metastatic lesion cou ld not entirely be excluded. There is midline mild increased uptake along the posterior wall of the hypopharynx without a well-cir cumscribed mass, SUV 4.3. Again, this could be artifact talking after injection rather than patholog ic activity. CHEST: No areas of abnormal metabolic activity in the chest. ABDOMEN AND PELVIS: No areas of abnormal metabolic activity in the abdomen or pelvis. Expected physi ologic activity is present in the genitourinary system and bowel. PROXIMAL LOWER EXTREMITIES: No areas of abnormal metabolic activity in the soft tissues of the lower extremities. BONES: No abnormal metabolic activity in the visualized skeleton. ADDITIONAL CT FINDINGS: Post endoscopic sinus surgeries. Stones in the gallbladder. Tiny hiatal her joelle and fat containing bilateral inguinal hernias. Minimal coronary artery calcification. Post rese ction of the right submandibular gland OTHER: Blood pool activity SUV 1.8, liver activity SUV 2.4 IMPRESSION: No PET-CT evidence of widespread metastatic disease. There is increased uptake in the tongue/floor of mouth and posterior wall of the hypopharynx without mass identified by CT. This could be physiologic activity, from talking after injection. TECHNICAL DOCUMENTATION: JOB ID: [id number]- All Rights Reserved
== END ==
LOC: RAD 17:49
PROVIDERS: ATTEND Internal Medicine
DX: C4A.8 Merkel cell carcinoma of overlapping sites (principal)
CPT/HCPCS: 78815; A9552

== ENCOUNTER → 2017-03-03 | Outpatient (CLI) | payer MEDICARE, OTHER ==
--- NOTE | 2017-03-05 12:02 | RADIOLOGY REPORT (SQ) ---
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 TECHNIQUE: Blood glucose level was verified. Above dose of FDG was injected intravenously. 2-D seg mented attenuation correction images were obtained from the base of the skull to the toes (whole body ). Noncontrast CT images were obtained for attenuation correction and fusion with emission images. CT images were performed without oral or intravenous contrast and are not sensitive for parenchymal l esions. A series of overlapping emission PET images were obtained. Images reviewed and manipulated at independent work station by the radiologist. Images stored on PACS. LIMITATIONS: None. FINDINGS: HEAD AND NECK: The tongue activity seen on 10/13/2016 most likely artifact, this is not sky ntified on today's study. In the posterior pharynx, a bandlike area of increased activity SUV 9.7 is present. There is no asso ciated pharyngeal or retropharyngeal mass on accompanying CT. Recommend direct visualization. CHEST: No areas of abnormal metabolic activity in the chest. ABDOMEN AND PELVIS: No areas of abnormal metabolic activity in the abdomen or pelvis. Expected physi ologic activity is present in the genitourinary system and bowel. BILATERAL LOWER EXTREMITIES: No areas of abnormal metabolic activity in the soft tissues of the lower extremities. BONES: No abnormal metabolic activity in the visualized skeleton. ADDITIONAL CT FINDINGS: Post extensive endoscopic sinus surgery, with removal of the nasal septum, te rminate, medial sorenson of the right and left maxillary sinuses, ethmoid septa. Gallstones in the gall bladder. Small hiatal hernia. Fat containing bilateral inguinal hernias. Coronary artery calcifica tion. Resected right submandibular gland. OTHER: Blood pool background activity SUV 1.9. Liver background activity 2.2 SUV. IMPRESSION: No PET-CT evidence of widespread metastatic disease. There is bandlike increased activity in the posterior pharynx, of uncertain clinical significance. E NT consult with direct visualization recommended TECHNICAL DOCUMENTATION: JOB ID: [id number] [employer] [facility] [employer]- All Rights Reserved
== END ==
LOC: RAD 17:21
PROVIDERS: ATTEND Internal Medicine
DX: C4A.8 Merkel cell carcinoma of overlapping sites (principal)
CPT/HCPCS: 78815; A9552

== ENCOUNTER 2017-04-12 06:19 | Day surgery (SDC) | payer MEDICARE, OTHER ==
--- NOTE | 2017-04-10 23:56 | EKG REPORT ---
SEVERITY:- ABNORMAL ECG - SINUS RHYTHM NONSPECIFIC T ABNORMALITIES, LATERAL LEADS : Confirmed by: Augusta Wang 10-Apr-2017 23:56:01
[~2017-04-12 06:19] MED LIST: CEFAZOLIN 2 GM/D5W RTU 2 GM/50 ML RTUPB IV PRN; LACTATED RINGERS 1000 ML IV PRN
[2017-04-12] MEDS ORDERED: MIDAZOLAM 2 MG/2 ML INJ ONE (08:38)
[2017-04-12] MEDS ORDERED: FENTANYL CITRATE INJ/PF 100 MCG/2 ML AMPUL ONE (08:38)
[2017-04-12] MEDS ORDERED: PROPOFOL INJ 200 MG/20 ML VIAL IV ONE (08:38)
[2017-04-12] MEDS ORDERED: ONDANSETRON HCL INJ/PF 4 MG/2 ML SDV ONE (08:38)
[2017-04-12] MEDS ORDERED: DEXAMETHASONE SOD PHOSPHATE INJ 4 MG/1 ML VIAL ONE (08:38)
[2017-04-12] MEDS ORDERED: OXYMETAZOLINE HCL 0.05% NASAL SPRAY 15 ML BOTTLE ONE (09:27)
[2017-04-12] MEDS ORDERED: FENTANYL CITRATE INJ/PF 100 MCG/2 ML AMPUL IV PRN ×3 (09:37)
[2017-04-12] MEDS ORDERED: PROMETHAZINE HCL INJ 25 MG/1 ML VIAL IV PRN ×2 (09:37→10:57)
[2017-04-12] MEDS ORDERED: MORPHINE SULFATE 10 MG/ML INJ IV PRN (09:37)
[2017-04-12] MEDS ORDERED: MEPERIDINE HCL/PF INJ 25 MG/1 ML DISP.SYRIN IV PRN (09:37)
[2017-04-12] MEDS ORDERED: DIPHENHYDRAMINE HCL 50 MG/ML VIAL IV PRN (09:37)
[2017-04-12] MEDS ORDERED: BUPIVACAINE HCL 0.5%-EPI 1:200000 INJ/PF 30 ML VIAL ONE (09:39)
[2017-04-12] MEDS ORDERED: RINGERS SOLUTION,LACTATED 1,000 ML IV PRN (10:57)
[2017-04-12] MEDS ORDERED: ONDANSETRON HCL INJ/PF 4 MG/2 ML SDV IV PRN (10:57)
[2017-04-12] MEDS ORDERED: HYDROCOD/ACETAMIN 7.5-325 MG/15 ML ORAL SOLN UDCUP PO PRN (11:05)
[2017-04-12 14:13] VITALS: BP 150/86
[2017-04-12] MEDS ORDERED: SUCCINYLCHOLINE CHLORIDE INJ 200 MG/10 ML VIAL ONE (14:20)
--- NOTE | 2017-04-13 09:48 | OPERATIVE REPORT E ---
Operative Report NAME: LI CHENG : 1940 AGE: 76Y DATE OF SURGERY: 04/12/2017 ROOM: PREOPERATIVE DIAGNOSES: 1. History of Adrián cell carcinoma. 2. Hypopharyngeal mass. 3. Right ear nodule, chronic. POSTOPERATIVE DIAGNOSES: 1. History of Adrián cell carcinoma. 2. Hypopharyngeal mass. 3. Right ear nodule, chronic. OPERATION PERFORMED: 1. Rigid upper airway endoscopy with directed biopsies of the hypopharynx. 2. Excisional biopsy of the right ear antihelical fold, skin and soft tissues. SURGEON: IVAN CORONA D.O. ANESTHESIA: General endotracheal tube. ANESTHESIA STAFF: Marlo Palomo CRNA COMPLICATIONS: None DRAINS: None. SPONGE COUNT: Verified. NEEDLE COUNT: Verified. MATERIALS FORWARDED SPECIMEN: 1. Numerous hypopharyngeal biopsies with frozen sections concerning for a papillomatous lesion. 2. Right ear antihelical fold excisional biopsy of skin and soft tissue. ESTIMATED BLOOD LOSS: 5 mL. FLUIDS: 1200 mL. FINDINGS: 1. In the hypopharynx at the posterior pharyngeal wall, there was a distinct area of fullness/hypopharyngeal mass with an exophytic/papillomatous appearance which correlated with CT PET findings performed preoperatively as well as the preoperative flexible fiberoptic endoscopic evaluation. 2. Right ear nodule with crusting noted. 3. Patient is edentulous. INDICATIONS: This is an 76-year-old white male who was seen and evaluated in the [facility]. The patient has been followed by [facility] over the years and was referred by this group due to concern for a hypopharyngeal mass that was noted on recent CT PET imaging with SUV reading at 9.7. There was concern for possible Clayton cell recurrence/new primary. The patient has also been reporting some occasional dysphagia with concern clinically for aspiration symptoms. On clinic endoscopic evaluation, the patient was noted to have findings consistent with a posterior pharyngeal wall area of fullness in the hypopharynx that was consistent with the area visualized on PET CT imaging. Clinically the patient was also noted to have a right ear antihelical fold nodule with crusting that had been reported as being there for an unknown period of time. After extensive discussion with the patient, recommendation and plan was made to proceed to the main operating room for rigid endoscopic guided biopsies of the hypopharynx for pathology evaluation. Also, plan to include excisional biopsy of the right ear nodule. The patient understood that these evaluations were being performed to rule out cancer recurrence and/or new primary cancers. The procedure and all of their risks and complications were all discussed in detail with the patient. He voiced an understanding of the described surgical plan, agreed to proceed, and consent was obtained. PROCEDURE: The patient was taken to the main operating room and placed on the operating room table in the supine position. Appropriate monitors were placed. Using mask and IV access, general anesthesia was established. The patient was transorally intubated without difficulty. Next, the table was rotated 90 degrees. The patient's upper palate was protected with a moist gauze as he is edentulous. At this point, a rigid laryngoscope was introduced for endoscopic evaluation of the oropharynx and hypopharynx. Findings were as noted above. At this point, rigid Shafer merari endoscopy was performed. The directed biopsies were completed of the hypopharyngeal mass with numerous specimens being taken. Frozen section findings are as noted above. At this point, two Afrin soaked neuro patties were placed in the hypopharynx and left in place with the strings extending outside the mouth which were secured. At this point, attention was turned to the patient's right ear which had been prepped as well as local anesthetic with epinephrine being administered. An excisional biopsy was performed and the tissue margins were reapproximated with chromic suture. The area was oversewn with a bolster dressing. There was adequate hemostasis noted. At this point, attention was turned back to the endoscopy evaluation. The rigid laryngoscope was introduced with moist gauze in place over the upper palate. The Afrin soaked neuro patties were removed. There were additional deeper biopsies taken for permanent pathology evaluation after the frozen section findings had been discussed. Suction electrocautery was used in the hypopharynx to provide adequate hemostasis. Once complete the laryngoscope was withdrawn along with the moist gauze. The patient was returned to the anesthesia staff and was allowed to emerge from general anesthesia. The patient was extubated in the main operating room and was then transported to the postanesthesia recovery unit in stable condition. There were no complications. DICTATING PHYSICIAN: IVAN CORONA D.O. [id number] PHY#: [id number] ID: [id number] JOB#: [id number] ACCT: [id number] cc:IVAN CORONA D.O. > FRANSISCO
== END 2017-04-12 13:10 | disposition home or self-care (01) ==
LOC: OROUT 06:19
PROVIDERS: ATTEND Otolaryngology
PROC: 09B Ear, Nose, Sinus, Excision (ICD-10-PCS; 2017-04-12)
PROC: 09BN8ZX Excision of Nasopharynx, Via Natural or Artificial Opening Endoscopic, Diagnostic (ICD-10-PCS; principal; 2017-04-12 08:30)
DX: C44.222 Squamous cell carcinoma of skin of right ear and external auricular canal (principal); R13.10 Dysphagia, unspecified; I10 Essential (primary) hypertension; E07.9 Disorder of thyroid, unspecified; Z85.821 Personal history of Merkel cell carcinoma; Z79.899 Other long term (current) drug therapy; Z88.5 Allergy status to narcotic agent; Z91.040 Latex allergy status
CPT/HCPCS: 93005; 88305 ×2; 88331 ×2; 93010; 92511; 69100; J2250; J3490 ×2; J1100; J3010; J0330; J2405; J2704; J0690; 320

== ENCOUNTER → 2017-05-02 | Outpatient (CLI) | payer MEDICARE, OTHER ==
[2017-05-02 10:35] LABS: ABSOLUTE BASOPHILS # (AUTO) 0.1 10^3/uL (0.0-0.2); ABSOLUTE EOSINOPHILS # (AUTO) 0.4 10^3/uL (0.0-0.6); ABSOLUTE LYMPHOCYTES (AUTO) 1.7 10^3/uL (0.5-4.7); ABSOLUTE MONOCYTES (AUTO) 0.4 10^3/uL (0.1-1.4); ABSOLUTE NEUT (AUTO) 2.4 10^3/uL (1.7-8.2); BASOPHILS % (AUTO) 1.1 % (0-2); EOSINOPHILS % (AUTO) 7.8 % (0-6); HEMATOCRIT 37.5 % (37.9-51.0); HEMOGLOBIN 12.4 g/dL (13.5-17.0); HGB HCT DIFFERENCE -0.3; LYMPHOCYTES % (AUTO) 34.3 % (13-45); MEAN CORPUSCULAR HEMOGLOBIN 25.7 pg (27.0-33.4); MEAN CORPUSCULAR HGB CONC 33.1 g/dL (32.0-36.0); MEAN CORPUSCULAR VOLUME 78 fl (80-97); MONOCYTES % (AUTO) 7.3 % (3-13); RED BLOOD COUNT 4.84 10^6/uL (4.35-5.55); RED CELL DISTRIBUTION WIDTH 15.8 % (11.5-14.0); SEGMENTED NEUTROPHILS % (AUTO) 49.5 % (42-78); WHITE BLOOD COUNT 4.8 10^3/uL (4.0-10.5)
[2017-05-02 11:01] LABS: ALANINE AMINOTRANSFERASE 29 U/L (21-72); ALBUMIN 3.8 g/dL (3.5-5.0); ALKALINE PHOSPHATASE 97 U/L (38-126); ANION GAP 11 (5-19); ASPARTATE AMINO TRANSFERASE 21 U/L (17-59); BILIRUBIN,DIRECT 0.4 mg/dL (0.0-0.4); BILIRUBIN,TOTAL 0.6 mg/dL (0.2-1.3); BLOOD UREA NITROGEN 18 mg/dL (7-20); CALCIUM 9.5 mg/dL (8.4-10.2); CARBON DIOXIDE 25 mmol/L (22-30); CHLORIDE 105 mmol/L (98-107); CREATININE RESULT 1.39 mg/dL (0.52-1.25); GLUCOSE 98 mg/dL (75-110); PHOSPHORUS 3.3 mg/dL (2.5-4.5); POTASSIUM 4.1 mmol/L (3.6-5.0); SODIUM 141.3 mmol/L (137-145); TOTAL PROTEIN 6.5 g/dL (6.3-8.2)
== END ==
LOC: OD 09:38
PROVIDERS: ATTEND Internal Medicine Nephrology
DX: I12.9 Hypertensive chronic kidney disease with stage 1 through stage 4 chronic kidney disease, or unspecified chronic kidney disease (principal); N18.3 Chronic kidney disease, stage 3 (moderate)
CPT/HCPCS: 36415; 80053; 84100; 85025

== ENCOUNTER → 2017-07-12 | Outpatient (CLI) | payer MEDICARE, OTHER ==
[2017-07-12 12:01] LABS: ABSOLUTE BASOPHILS # (AUTO) 0.1 10^3/uL (0.0-0.2); ABSOLUTE LYMPHOCYTES (AUTO) 1.5 10^3/uL (0.5-4.7); ABSOLUTE MONOCYTES (AUTO) 0.1 10^3/uL (0.1-1.4); ABSOLUTE NEUT (AUTO) 3.6 10^3/uL (1.7-8.2); EOSINOPHILS % (AUTO) 0.3 % (0-6); HEMATOCRIT 33.9 % (37.9-51.0); HEMOGLOBIN 11.2 g/dL (13.5-17.0); LYMPHOCYTES % (AUTO) 28.6 % (13-45); MEAN CORPUSCULAR HEMOGLOBIN 25.6 pg (27.0-33.4); MEAN CORPUSCULAR HGB CONC 32.9 g/dL (32.0-36.0); MEAN CORPUSCULAR VOLUME 78 fl (80-97); MONOCYTES % (AUTO) 2.5 % (3-13); PLATELET COUNT 221 10^3/uL (150-450); RED BLOOD COUNT 4.36 10^6/uL (4.35-5.55); RED CELL DISTRIBUTION WIDTH 17.3 % (11.5-14.0); SEGMENTED NEUTROPHILS % (AUTO) 67.6 % (42-78); TOTAL CELLS COUNTED % (AUTO) 100 %; WHITE BLOOD COUNT 5.3 10^3/uL (4.0-10.5)
[2017-07-12 12:24] LABS: ALANINE AMINOTRANSFERASE 26 U/L (21-72); ALBUMIN 3.9 g/dL (3.5-5.0); ALKALINE PHOSPHATASE 98 U/L (38-126); ANION GAP 11 (5-19); ASPARTATE AMINO TRANSFERASE 19 U/L (17-59); BILIRUBIN,DIRECT 0.4 mg/dL (0.0-0.4); BILIRUBIN,TOTAL 0.4 mg/dL (0.2-1.3); BLOOD UREA NITROGEN 20 mg/dL (7-20); CALCIUM 9.1 mg/dL (8.4-10.2); CARBON DIOXIDE 24 mmol/L (22-30); CHLORIDE 108 mmol/L (98-107); GLUCOSE 75 mg/dL (75-110); POTASSIUM 3.7 mmol/L (3.6-5.0); SODIUM 143.1 mmol/L (137-145); TOTAL PROTEIN 5.9 g/dL (6.3-8.2)
[2017-07-13 18:22] LABS: ANTINUCLEAR ANTIBODIES Negative (Negative); TOXOPLASMA GONDII IGG AB <3.0 IU/mL (0.0-7.1)
[2017-07-15 17:37] LABS: CYTOPLASMIC (C-ANCA) <1:20 titer (Neg:<1:20)
[2017-07-15 17:41] LABS: ANGIOTENSIN-CONVERTING ENZYME 41 U/L (14-82); ATYPICAL PANCA <1:20 titer (Neg:<1:20); PERINUCLEAR (P-ANCA) <1:20 titer (Neg:<1:20)
== END ==
LOC: OD 10:14
PROVIDERS: ATTEND Ophthalmology
DX: H35.371 Puckering of macula, right eye (principal); H43.812 Vitreous degeneration, left eye; H35.443 Age-related reticular degeneration of retina, bilateral; H20.9 Unspecified iridocyclitis
CPT/HCPCS: 36415; 80048; 80076; 82164; 85025; 86021; 86038; 86430; 86480; 86592; 86777

== ENCOUNTER → 2017-08-18 | Outpatient (CLI) | payer MEDICARE, OTHER ==
--- NOTE | 2017-08-20 08:56 | RADIOLOGY REPORT (SQ) ---
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 TECHNIQUE: Blood glucose level was verified. Above dose of FDG was injected intravenously. 2-D seg mented attenuation correction images were obtained from the base of the skull to the midthighs. Nonc ontrast CT images were obtained for attenuation correction and fusion with emission images. CT image s were performed without oral or intravenous contrast and are not sensitive for parenchymal lesions. A series of overlapping emission PET images were obtained. Images reviewed and manipulated at [facility] work station by the radiologist. Images stored on PACS. LIMITATIONS: None. FINDINGS: HEAD AND NECK: Previously described uptake posterior hypopharynx is no longer visualized. Tongue uptake seen 11/18/2016, absent 03/03/2017, is now present on the current study, definitely jonny fact. Mild uptake to right of midline in the strap muscles and larynx of unlikely significance. CHEST: No areas of abnormal metabolic activity in the chest. ABDOMEN AND PELVIS: No areas of abnormal metabolic activity in the abdomen or pelvis. Expected physi ologic activity is present in the genitourinary system and bowel. PROXIMAL LOWER EXTREMITIES: No areas of abnormal metabolic activity in the soft tissues of the lower extremities. BONES: No abnormal metabolic activity in the visualized skeleton. ADDITIONAL CT FINDINGS: Documented previously. Extensive sinus surgery. Cholelithiasis. OTHER: No other significant findings. IMPRESSION: No evidence of local recurrence or metastatic disease. TECHNICAL DOCUMENTATION: JOB ID: [id number]- All Rights Reserved Reading location - IP/workstation name: [email or web address]
== END ==
LOC: RAD 15:49
PROVIDERS: ATTEND Internal Medicine
DX: C13.2 Malignant neoplasm of posterior wall of hypopharynx (principal); C4A.8 Merkel cell carcinoma of overlapping sites
CPT/HCPCS: 78815; A9552

== ENCOUNTER 2017-10-30 18:20 | Emergency (ER) | payer MEDICARE, OTHER ==
--- NOTE | 2017-10-30 19:16 | ER Document Report ---
ED Medical Screen (RME) - General Chief Complaint: Rib Pain Stated Complaint: FALL/RIB PAIN Time Seen by Provider: 10/30/17 19:14 Mode of Arrival: Ambulatory Information source: Patient Notes: This is a 77-year-old man with a history of metastatic cancer (Adrián Cell) who presents to the emergency room with chest wall pain after fall today. Patient does have metastases to the brain and has had CyberKnife radiation therapy and has an unstable gait. He fell and hit the side table (nightstand). He denies any head injury. He fell onto his right ribs and his pain. TRAVEL OUTSIDE OF THE [place] IN LAST 30 DAYS: No - Related Data Allergies/Adverse Reactions: codeine Allergy (Verified 10/30/17 18:22) latex [Latex] Allergy (Verified 10/30/17 18:22) tetracycline Allergy (Verified 10/30/17 18:22) Past Medical History - Social History Chew tobacco use (# tins/day): No Frequency of alcohol use: None Drug Abuse: None - Past Medical History Cardiac Medical History: Reports: Hx Hypercholesterolemia, Hx Hypertension Denies: Hx Coronary Artery Disease, Hx Heart Attack Pulmonary Medical History: Reports: Hx Asthma, Hx COPD Denies: Hx Bronchitis, Hx Pneumonia Neurological Medical History: Denies: Hx Cerebrovascular Accident, Hx Seizures Renal/ Medical History: Denies: Hx Peritoneal Dialysis GI Medical History: Denies: Hx Hepatitis, Hx Hiatal Hernia, Hx Ulcer Musculoskeltal Medical History: Denies Hx Arthritis Psychiatric Medical History: Reports: Hx Depression Infectious Medical History: Denies: Hx Hepatitis Past Surgical History: Reports: Other. Denies: Hx Open Heart Surgery, Hx Pacemaker - Immunizations Hx Diphtheria, Pertussis, Tetanus Vaccination: Yes Physical Exam - Vital signs Vitals: Temp Pulse Resp BP Pulse Ox 97.3 F 75 16 139/58 H 100 10/30/17 18:26 10/30/17 18:26 10/30/17 18:26 10/30/17 18:26 10/30/17 18:26 Course - Vital Signs Vital signs: Temp Pulse Resp BP Pulse Ox 97.3 F 75 16 139/58 H 100 10/30/17 18:26 10/30/17 18:26 10/30/17 18:26 10/30/17 18:26 10/30/17 18:26 Doctor's Discharge - Discharge Referrals: LINNEA REMY MD [Primary Care Provider] - Follow up as needed
--- NOTE | 2017-10-30 19:59 | RADIOLOGY REPORT (SQ) ---
EXAM DESCRIPTION: CT ABD/PELVIS NO ORAL OR IV COMPLETED DATE/TIME: 10/30/2017 7:46 pm REASON FOR STUDY: fall right rib/RUQ tenderness COMPARISON: 08/18/2017 PET-CT TECHNIQUE: CT scan of the abdomen and pelvis performed without intravenous or oral contrast. Images reviewed with lung, soft tissue, and bone windows. Reconstructed coronal and sagittal MPR images revi ewed. All images stored on PACS. All CT scanners at this facility use dose modulation, iterative reconstruction, and/or weight based d osing when appropriate to reduce radiation dose to as low as reasonably achievable (ALARA). [facility]: Dose Right [facility]: CareDose [facility]: Dose Right [facility]: Teradose 4D [facility]: Smart CmyCasa RADIATION DOSE: mGy. LIMITATIONS: None. FINDINGS: LOWER CHEST: New small nodular opacities in the right inferior middle lobe and parahilar p ortion of the lower lobe. NON-CONTRASTED LIVER, SPLEEN, ADRENALS: Evaluation limited by lack of IV contrast. No identified sign ificant masses. PANCREAS: No masses. No peripancreatic inflammatory changes. GALLBLADDER: Small calcified gallstones. No inflammatory changes to suggest cholecystitis. RIGHT KIDNEY AND URETER: No suspicious masses. Assessment limited by lack of IV contrast. No signif icant calcifications. No hydronephrosis or hydroureter. LEFT KIDNEY AND URETER: No suspicious masses. Assessment limited by lack of IV contrast. No signifi cant calcifications. No hydronephrosis or hydroureter. AORTA AND RETROPERITONEUM: No aneurysm. No retroperitoneal masses or adenopathy. BOWEL AND PERITONEAL CAVITY: No obvious masses or inflammatory changes. No free fluid. APPENDIX: Normal. PELVIS, BLADDER, AND ABDOMINAL WALL:Similar postprocedural changes in the right inguinal region. . N o free fluid. Bladder normal. BONES: No acute findings. OTHER: No other significant finding. IMPRESSION: New small nodular opacities in the right inferior middle lobe and parahilar portion of t he lower lobe.NO ACUTE PROCESS IN THE ABDOMEN OR PELVIS. COMMENT: Quality ID # [id number]: Final reports with documentation of one or more dose reduction techniques (e.g., Automated exposure control, adjustment of the mA and/or kV according to patient size, use of iterative reconstruction technique) TECHNICAL DOCUMENTATION: JOB ID: [id number] [place]-72 2010 [employer]- All Rights Reserved Reading location - IP/workstation name: [email or web address]
--- NOTE | 2017-10-30 20:05 | RADIOLOGY REPORT (SQ) ---
EXAM DESCRIPTION: CHEST 2 VIEWS COMPLETED DATE/TIME: 10/30/2017 7:48 pm REASON FOR STUDY: fall, chest wall pain COMPARISON: 12/05/2015 EXAM PARAMETERS: NUMBER OF VIEWS: two views TECHNIQUE: Digital Frontal and Lateral radiographic views of the chest acquired. RADIATION DOSE: NA LIMITATIONS: none FINDINGS: LUNGS AND PLEURA: No pneumothorax. Minimal basilar subsegmental atelectasis. No pleural effusion. MEDIASTINUM AND HILAR STRUCTURES: Stable. HEART AND VASCULAR STRUCTURES: Stable. BONES: No acute findings. HARDWARE: None in the chest. OTHER: No other significant finding. IMPRESSION: Minimal basilar subsegmental atelectasis. TECHNICAL DOCUMENTATION: JOB ID: [id number] [place]-72 2010 [employer]- All Rights Reserved Reading location - IP/workstation name: [employer]
[2017-10-30] MEDS ORDERED: LIDOCAINE 5% (700 MG) TRANSDERMAL ADH..PATCH TP ONE (20:21)
--- NOTE | 2017-10-30 20:23 | ER Document Report ---
ED Fall - General Mode of Arrival: Ambulatory Information source: Patient TRAVEL OUTSIDE OF THE U.S. IN LAST 30 DAYS: No - General Chief Complaint: Rib Pain Stated Complaint: FALL/RIB PAIN Time Seen by Provider: 10/30/17 19:14 Notes: Patient is a 77-year-old male with metastatic cancer (Adrián cell) which has metastasized to the brain, COPD, asthma presents emergency department complaining of right-sided rib pain due to a fall. Patient states that he was trying to close the curtains when he tripped over his nightstand and hit the right side of his ribs. Patient denies any vomiting, head injury or rib pain. ( WESTLEY DICKSON) - Related data Allergies/Adverse Reactions: codeine Allergy (Verified 10/30/17 18:22) latex [Latex] Allergy (Verified 10/30/17 18:22) tetracycline Allergy (Verified 10/30/17 18:22) Past Medical History - General Information source: Patient - Social History Smoking Status: Former Smoker Chew tobacco use (# tins/day): No Frequency of alcohol use: None Drug Abuse: None Family History: Reviewed & Not Pertinent Patient has suicidal ideation: No Patient has homicidal ideation: No - Past Medical History Cardiac Medical History: Reports: Hx Hypercholesterolemia, Hx Hypertension Pulmonary Medical History: Reports: Hx Asthma, Hx COPD Psychiatric Medical History: Reports: Hx Depression Past Surgical History: Reports: Other - Immunizations Hx Diphtheria, Pertussis, Tetanus Vaccination: Yes Hx Pneumococcal Vaccination: 05/27/06 Review of Systems - Review of Systems Constitutional: No symptoms reported EENT: No symptoms reported Cardiovascular: No symptoms reported Respiratory: No symptoms reported Gastrointestinal: No symptoms reported Genitourinary: No symptoms reported Male Genitourinary: No symptoms reported Musculoskeletal: See HPI Skin: No symptoms reported Hematologic/Lymphatic: No symptoms reported Neurological/Psychological: No symptoms reported -: Yes All other systems reviewed and negative Physical Exam - Vital signs Vitals: Temp Pulse Resp BP Pulse Ox 97.3 F 75 16 139/58 H 100 10/30/17 18:26 10/30/17 18:26 10/30/17 18:26 10/30/17 18:26 10/30/17 18:26 - Notes Notes: GENERAL: Alert, interacts well. No acute distress. HEAD: Normocephalic, atraumatic. EYES: Pupils equal, round, and reactive to light. Extraocular movements intact. ENT: Oral mucosa moist, tongue midline. NECK: Full range of motion. Supple. Trachea midline. HEART: Regular rate and rhythm. No murmurs, gallops, or rubs. LUNGS: Right chest wall tenderness to palpation. ABDOMEN: Soft, non-tender. Non-distended. Bowel sounds present in all 4 quadrants. EXTREMITIES: Moves all 4 extremities spontaneously. Normal gait. NEUROLOGICAL: Alert and oriented x3. Normal speech. PSYCH: Normal affect, normal mood. SKIN: Warm, dry, normal turgor. No rashes or lesions noted. (WESTLEY DICKSON) Course - Re-evaluation Re-evalutation: 10/31/17 Patient is a 77-year-old male who was trying to move a curtain lost his balance and fell on his right side. No acute findings on imaging. Patient states that he takes pain medication at home, tramadol, and does not want anything stronger. Vitals are stable. No difficulty breathing. Patient will be given a Lidoderm patch here and given a prescription for them at home. He has been given a copy of his imaging. Otherwise feels well would like to go home. Stable for discharge. Family agrees with this plan. Ambulates without difficulty. No other injuries. (KELLEN WHALEY) - Vital Signs Vital signs: Temp Pulse Resp BP Pulse Ox 98.1 F 63 17 121/60 97 10/30/17 20:36 10/30/17 20:36 10/30/17 20:36 10/30/17 20:36 10/30/17 20:36 Discharge - Discharge Clinical Impression: Fall Qualifiers: Encounter type: initial encounter Qualified Code(s): W19.XXXA - Unspecified fall, initial encounter Contusion of right chest wall Qualifiers: Encounter type: initial encounter Qualified Code(s): S20.211A - Contusion of right front wall of thorax, initial encounter Condition: Stable Disposition: HOME, SELF-CARE Instructions: Chest Wall Pain ([facility]), Rib Contusion ([facility]) Additional Instructions: Please follow-up with your PMD this week. Prescriptions: Lidocaine [Lidoderm 5% (700 mg) Transdermal Patch] 1 patch TP DAILY #20 adh..patch Referrals: LINNEA REMY MD [ACTIVE STAFF] - Follow up as needed Scribe Attestation: 10/31/17 03:48 I personally performed the services described in the documentation, reviewed and edited the documentation which was dictated to the scribe in my presence, and it accurately records my words and actions. (KELLEN WHALEY) Scribe Documentation - Scribe Written by Scribe:: Mera Rubio, 10/30/2017 20:29 acting as scribe for :: Pineda
[2017-10-30 21:03] VITALS: BP 121/60
== END 2017-10-30 21:03 | disposition home or self-care (01) ==
LOC: ER 18:20
DX: S20.211A Contusion of right front wall of thorax, initial encounter (principal); C79.31 Secondary malignant neoplasm of brain; R07.81 Pleurodynia; W01.190A Fall on same level from slipping, tripping and stumbling with subsequent striking against furniture, initial encounter; J44.9 Chronic obstructive pulmonary disease, unspecified; I10 Essential (primary) hypertension; E78.00 Pure hypercholesterolemia, unspecified; Z87.891 Personal history of nicotine dependence; Z91.040 Latex allergy status
CPT/HCPCS: 71046; 74176; 99284

== ENCOUNTER → 2017-11-04 | Outpatient (CLI) | payer MEDICARE, OTHER ==
[2017-11-04 09:00] LABS: ABSOLUTE EOSINOPHILS # (AUTO) 0.4 10^3/uL (0.0-0.6); ABSOLUTE LYMPHOCYTES (AUTO) 2.4 10^3/uL (0.5-4.7); ABSOLUTE MONOCYTES (AUTO) 0.4 10^3/uL (0.1-1.4); ABSOLUTE NEUT (AUTO) 2.6 10^3/uL (1.7-8.2); BASOPHILS % (AUTO) 0.7 % (0-2); EOSINOPHILS % (AUTO) 6.6 % (0-6); HEMATOCRIT 35.2 % (37.9-51.0); HEMOGLOBIN 11.8 g/dL (13.5-17.0); LYMPHOCYTES % (AUTO) 41.5 % (13-45); MEAN CORPUSCULAR HEMOGLOBIN 27.9 pg (27.0-33.4); MEAN CORPUSCULAR HGB CONC 33.5 g/dL (32.0-36.0); MEAN CORPUSCULAR VOLUME 83 fl (80-97); MONOCYTES % (AUTO) 6.7 % (3-13); PLATELET COUNT 252 10^3/uL (150-450); RED BLOOD COUNT 4.24 10^6/uL (4.35-5.55); RED CELL DISTRIBUTION WIDTH 14.7 % (11.5-14.0); SEGMENTED NEUTROPHILS % (AUTO) 44.5 % (42-78); TOTAL CELLS COUNTED % (AUTO) 100 %; WHITE BLOOD COUNT 5.8 10^3/uL (4.0-10.5)
[2017-11-04 09:12] LABS: APPEARANCE,URINE SLIGHTLY-CLOUDY; BILIRUBIN,URINE NEGATIVE (NEGATIVE); COLOR,URINE YELLOW; GLUCOSE, URINE NEGATIVE (NEGATIVE); KETONES,URINE NEGATIVE (NEGATIVE); LEUKOCYTE ESTERASE,URINE NEGATIVE (NEGATIVE); NITRITE,URINE NEGATIVE (NEGATIVE); PROTEIN,URINE NEGATIVE (NEGATIVE); URINE SPECIFIC GRAVITY 1.017
[2017-11-04 09:19] LABS: ANION GAP 13 (5-19); BLOOD UREA NITROGEN 15 mg/dL (7-20); CALCIUM 9.4 mg/dL (8.4-10.2); CARBON DIOXIDE 27 mmol/L (22-30); CHLORIDE 103 mmol/L (98-107); GLUCOSE 87 mg/dL (75-110); PHOSPHORUS 4.2 mg/dL (2.5-4.5); POTASSIUM 4.2 mmol/L (3.6-5.0); SODIUM 143.2 mmol/L (137-145)
== END ==
LOC: OD 07:50
PROVIDERS: ATTEND Internal Medicine Nephrology
DX: I12.9 Hypertensive chronic kidney disease with stage 1 through stage 4 chronic kidney disease, or unspecified chronic kidney disease (principal); N18.3 Chronic kidney disease, stage 3 (moderate)
CPT/HCPCS: 36415; 80048; 81001; 84100; 85025

== ENCOUNTER → 2017-11-10 | Outpatient (CLI) | payer MEDICARE, OTHER ==
--- NOTE | 2017-11-11 19:40 | RADIOLOGY REPORT (SQ) ---
EXAM DESCRIPTION: PET CT SKULL/THIGH COMPLETED DATE/TIME: 11/10/2017 7:14 pm REASON FOR STUDY: HYPOPHARYNX C13.2 MALIGNANT NEOPLASM OF POSTERIOR WALL OF HYPOPHARYNX COMPARISON: PET-CT 08/18/2017, 03/03/2017 RADIONUCLIDE AND DOSE: 10.9 mCi F18 FDG The route of agent administration: Intravenous FASTING BLOOD SUGAR: 91 mg/dl CONTRAST TYPE AND DOSE: No CT contrast given. TECHNIQUE: Blood glucose level was verified. Above dose of FDG was injected intravenously. 2-D seg mented attenuation correction images were obtained from the base of the skull to the midthighs. Nonc ontrast CT images were obtained for attenuation correction and fusion with emission images. CT image s were performed without oral or intravenous contrast and are not sensitive for parenchymal lesions. A series of overlapping emission PET images were obtained. Images reviewed and manipulated at [facility] work station by the radiologist. Images stored on PACS. LIMITATIONS: None. FINDINGS: HEAD AND NECK: No areas of abnormal metabolic activity in the soft tissues of the head and neck. CHEST: On axial image 101, an irregularly-shaped 1.6 x 1 cm nodule is present just above the left hem idiaphragm. This has SUV of 2.0 which is just above baseline blood pool activity. This is of uncert ain clinical significance. Along the anterior right 8th rib costochondral cartilage, bandlike increased activity is present with SUV of 3.4. This is of uncertain clinical significance and could be due to injury or inflammation r ather than tumor. ABDOMEN AND PELVIS: No areas of abnormal metabolic activity in the abdomen or pelvis. Expected physi ologic activity is present in the genitourinary system and bowel. PROXIMAL LOWER EXTREMITIES: No areas of abnormal metabolic activity in the soft tissues of the lower extremities. BONES: No abnormal metabolic activity in the visualized skeleton. ADDITIONAL CT FINDINGS: Stones in the gallbladder. Minimal coronary artery calcification. Mild dege nerative disc changes lower lumbar spine OTHER: Blood pool activity 1.9 SUV. Liver activity 2.3 SUV. IMPRESSION: Minimal airspace disease versus nodule just above the left hemidiaphragm with metabolic activity just above baseline. This is of uncertain clinical significance. Right 8th rib costochondral cartilage uptake of uncertain clinical significance. TECHNICAL DOCUMENTATION: JOB ID: [id number] [employer]- All Rights Reserved Reading location - IP/workstation name: [facility]
== END ==
LOC: RAD 15:46
PROVIDERS: ATTEND Internal Medicine
DX: C13.2 Malignant neoplasm of posterior wall of hypopharynx (principal)
CPT/HCPCS: 78815; A9552

== ENCOUNTER → 2018-02-18 | Outpatient (CLI) | payer MEDICARE, OTHER ==
--- NOTE | 2018-02-19 09:18 | RADIOLOGY REPORT (SQ) ---
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 TECHNIQUE: Blood glucose level was verified. Above dose of FDG was injected intravenously. 2-D seg mented attenuation correction images were obtained from the base of the skull to the midthighs. Nonc ontrast CT images were obtained for attenuation correction and fusion with emission images. CT image s were performed without oral or intravenous contrast and are not sensitive for parenchymal lesions. A series of overlapping emission PET images were obtained. Images [facility] by the radiologist. Images stored on PACS. LIMITATIONS: None. FINDINGS: HEAD AND NECK: No areas of abnormal metabolic activity in the soft tissues of the head and neck. CHEST: No worrisome areas of abnormal metabolic activity in the chest. There is minimal increased uptake along the left anterior 5th 6th and 7th ribs, with activity 2.1 to 2.8 SUV. This likely represents posttraumatic change. ABDOMEN AND PELVIS: No areas of abnormal metabolic activity in the abdomen or pelvis. Expected physi ologic activity is present in the genitourinary system and bowel. PROXIMAL LOWER EXTREMITIES: No areas of abnormal metabolic activity in the soft tissues of the lower extremities. BONES: No abnormal metabolic activity in the visualized skeleton. ADDITIONAL CT FINDINGS: Tiny gallstones in the gallbladder. Minimal coronary artery disease. Fatty bilateral inguinal hernias OTHER: Liver background activity 2.6 SUV. Blood pool background activity 2.0 SUV IMPRESSION: No hypermetabolic lesions worrisome for recurrent malignancy TECHNICAL DOCUMENTATION: JOB ID: [id number]- All Rights Reserved Reading location - IP/workstation name: [email or web address]
== END ==
LOC: RAD 15:40
PROVIDERS: ATTEND Internal Medicine
DX: C13.2 Malignant neoplasm of posterior wall of hypopharynx (principal)
CPT/HCPCS: 78815; A9552

== ENCOUNTER 2018-03-30 07:36 | Emergency (ER) | payer MEDICARE, OTHER ==
--- NOTE | 2018-03-30 08:18 | RADIOLOGY REPORT (SQ) ---
EXAM DESCRIPTION: CT HEAD WITHOUT COMPLETED DATE/TIME: 03/30/2018 7:53 am REASON FOR STUDY: bed 11 stroke alert COMPARISON: 02/09/2017 and 12/05/2015. TECHNIQUE: Axial images acquired through the brain without intravenous contrast. Images reviewed wi th bone, brain and subdural windows. Additional sagittal and coronal reconstructions were generated. Images stored on PACS. All CT scanners at this facility use dose modulation, iterative reconstruction, and/or weight based d osing when appropriate to reduce radiation dose to as low as reasonably achievable (ALARA). [facility]: Dose Right [facility]: CareDose [facility]: Dose Right [facility]: Teradose 4D [facility]: [employer] RADIATION DOSE: CT Rad equipment meets quality standard of care and radiation dose reduction techniq ues were employed. CTDIvol: 53.2 mGy. DLP: 1124 mGy-cm. mGy. LIMITATIONS: None. FINDINGS: VENTRICLES: Normal size and contour. CEREBRUM: No masses. No hemorrhage. No midline shift. No evidence for acute infarction. Normal gra y/white matter differentiation. Decreased attenuation in the white matter of the right cerebral savannah sphere unchanged from prior studies. CEREBELLUM: No masses. No hemorrhage. No alteration of density. No evidence for acute infarction. EXTRAAXIAL SPACES: No fluid collections. No masses. ORBITS AND GLOBE: No intra- or extraconal masses. Normal contour of globe without masses. CALVARIUM: No fracture. PARANASAL SINUSES: No fluid or mucosal thickening. SOFT TISSUES: No mass or hematoma. OTHER: No other significant finding. IMPRESSION: STABLE AREA OF DECREASED ATTENUATION IN THE WHITE MATTER OF THE RIGHT CEREBRAL HEMISPHER E. NO ACUTE FINDINGS. EVIDENCE OF ACUTE STROKE: NO. COMMENT: Pertinent positive or negative findings of the imaging study reported as a CRITICAL EXAM t timothy Tristan MD at08:11 on 03/30/2018. Category of Critical Exam: Stroke protocol. Quality ID # [id number]: Final reports with documentation of one or more dose reduction techniques (e.g., Au tomated exposure control, adjustment of the mA and/or kV according to patient size, use of iterative reconstruction technique) TECHNICAL DOCUMENTATION: JOB ID: [id number] [employer]- All Rights Reserved Reading location - IP/workstation name: [email or web address]
--- NOTE | 2018-03-30 08:19 | RADIOLOGY REPORT (SQ) ---
EXAM DESCRIPTION: CHEST SINGLE VIEW COMPLETED DATE/TIME: 03/30/2018 8:00 am REASON FOR STUDY: bed 11 stroke alert COMPARISON: 10/30/2017. EXAM PARAMETERS: NUMBER OF VIEWS: One view. TECHNIQUE: Single frontal radiographic view of the chest acquired. RADIATION DOSE: NA LIMITATIONS: None. FINDINGS: LUNGS AND PLEURA: No opacities, masses or pneumothorax. No pleural effusion. MEDIASTINUM AND HILAR STRUCTURES: No masses. Contour normal. HEART AND VASCULAR STRUCTURES: Heart normal in size. Normal vasculature. BONES: No acute findings. HARDWARE: None in the chest. OTHER: No other significant finding. IMPRESSION: NO ACUTE RADIOGRAPHIC FINDING IN THE CHEST. TECHNICAL DOCUMENTATION: JOB ID: [id number] [employer]- All Rights Reserved Reading location - IP/workstation name: [email or web address]
[2018-03-30 08:24] LABS: ABSOLUTE EOSINOPHILS # (AUTO) 0.6 10^3/uL (0.0-0.6); ABSOLUTE LYMPHOCYTES (AUTO) 1.5 10^3/uL (0.5-4.7); ABSOLUTE MONOCYTES (AUTO) 0.4 10^3/uL (0.1-1.4); ABSOLUTE NEUT (AUTO) 2.6 10^3/uL (1.7-8.2); BASOPHILS % (AUTO) 0.9 % (0-2); EOSINOPHILS % (AUTO) 11.5 % (0-6); HEMATOCRIT 38.7 % (37.9-51.0); HEMOGLOBIN 13.3 g/dL (13.5-17.0); LYMPHOCYTES % (AUTO) 29.5 % (13-45); MEAN CORPUSCULAR HEMOGLOBIN 27.4 pg (27.0-33.4); MEAN CORPUSCULAR HGB CONC 34.4 g/dL (32.0-36.0); MEAN CORPUSCULAR VOLUME 80 fl (80-97); MONOCYTES % (AUTO) 7.5 % (3-13); PLATELET COUNT 227 10^3/uL (150-450); RED BLOOD COUNT 4.86 10^6/uL (4.35-5.55); RED CELL DISTRIBUTION WIDTH 20.2 % (11.5-14.0); SEGMENTED NEUTROPHILS % (AUTO) 50.6 % (42-78); TOTAL CELLS COUNTED % (AUTO) 100 %; WHITE BLOOD COUNT 5.1 10^3/uL (4.0-10.5)
[2018-03-30 08:25] LABS: INTERNATIONAL RATION (INR) 0.97; PROTHROMBIN TIME 13.3 SEC (11.4-15.4)
[2018-03-30 08:26] LABS: PARTIAL THROMBOPLASTIN TIME 30.4 SEC (23.5-35.8)
[2018-03-30 08:48] LABS: ALANINE AMINOTRANSFERASE < 6 U/L (21-72); ALBUMIN 3.6 g/dL (3.5-5.0); ALKALINE PHOSPHATASE 107 U/L (38-126); ANION GAP 8 (5-19); ASPARTATE AMINO TRANSFERASE 19 U/L (17-59); BILIRUBIN,DIRECT 0.2 mg/dL (0.0-0.4); BILIRUBIN,TOTAL 0.6 mg/dL (0.2-1.3); BLOOD UREA NITROGEN 16 mg/dL (7-20); CALCIUM 9.3 mg/dL (8.4-10.2); CARBON DIOXIDE 30 mmol/L (22-30); CHLORIDE 105 mmol/L (98-107); CREATINE KINASE 41 U/L (55-170); GLUCOSE 85 mg/dL (75-110); POTASSIUM 4.6 mmol/L (3.6-5.0); SODIUM 142.7 mmol/L (137-145); TOTAL PROTEIN 6.5 g/dL (6.3-8.2)
[2018-03-30 09:11] LABS: CREATINE KINASE MB < 0.22 ng/mL (<4.55)
[2018-03-30 09:14] LABS: TROPONIN I < 0.012 ng/mL
--- NOTE | 2018-03-30 09:38 | EKG REPORT ---
SEVERITY:- NORMAL ECG - SINUS RHYTHM : Confirmed by: Edie Fang MD 30-Mar-2018 09:38:20
--- NOTE | 2018-03-30 12:43 | ER Document Report ---
ED General - General Chief Complaint: Altered Mental Status Stated Complaint: ALTERED MENTAL STATUS Time Seen by Provider: 03/30/18 08:02 Mode of Arrival: Wheelchair Information source: Patient, Relative TRAVEL OUTSIDE OF THE [place] IN LAST 30 DAYS: No - HPI Patient complains to provider of: Dysarthria Onset: Other - 77-year-old man with a history of multiple metastatic diseases including a recent required esophagectomy and partial gastrectomy for cancer that presents for evaluation of an episode this morning in which he became confused had trouble finding words and then after returned to his baseline level according to his as well as himself. - Related Data Allergies/Adverse Reactions: codeine Allergy (Verified 10/30/17 18:22) latex [Latex] Allergy (Verified 10/30/17 18:22) tetracycline Allergy (Verified 10/30/17 18:22) Past Medical History - General Information source: Patient, Relative - Social History Smoking Status: Former Smoker Chew tobacco use (# tins/day): No Frequency of alcohol use: None Drug Abuse: None Family History: Reviewed & Not Pertinent Patient has suicidal ideation: No Patient has homicidal ideation: No - Past Medical History Cardiac Medical History: Reports: Hx Hypercholesterolemia, Hx Hypertension Denies: Hx Coronary Artery Disease, Hx Heart Attack Pulmonary Medical History: Reports: Hx Asthma, Hx COPD Denies: Hx Bronchitis, Hx Pneumonia Neurological Medical History: Denies: Hx Cerebrovascular Accident, Hx Seizures Renal/ Medical History: Denies: Hx Peritoneal Dialysis GI Medical History: Denies: Hx Hepatitis, Hx Hiatal Hernia, Hx Ulcer Musculoskeletal Medical History: Denies Hx Arthritis Psychiatric Medical History: Reports: Hx Depression Infectious Medical History: Denies: Hx Hepatitis Past Surgical History: Reports: Other. Denies: Hx Open Heart Surgery, Hx Pacemaker - Immunizations Hx Diphtheria, Pertussis, Tetanus Vaccination: Yes Hx Pneumococcal Vaccination: 05/27/06 Review of Systems - Review of Systems -: Yes All other systems reviewed and negative Physical Exam - Vital signs Vitals: Pulse Ox 100 03/30/18 07:45 - General General appearance: Appears well In distress: None - HEENT Head: Other - Slightly asymmetric face he says he keeps his right eye closed the majority of the time Eyes: Normal Conjunctiva: Normal Eyelashes: Normal Pupils: PERRL - Respiratory Respiratory status: No respiratory distress Chest status: Nontender Breath sounds: Normal - Cardiovascular Rhythm: Regular Heart sounds: Normal auscultation - Abdominal Inspection: Normal Tenderness: Nontender - Back Back: Normal - Extremities General upper extremity: Normal inspection, Nontender, Normal strength, Normal temperature General lower extremity: Normal inspection, Nontender, Normal strength, Normal temperature - Neurological Neuro grossly intact: Yes Cognition: Normal Orientation: AAOx4 [place] Coma Scale Eye Opening: Spontaneous Mattie Coma Scale Verbal: Oriented Speech: Normal Cranial nerves: Normal Cerebellar coordination: Normal Motor strength normal: LUE, RUE, LLE, RLE 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 In brief discussion with his it was identified that this man has known metastatic disease in his brain, he is a poor candidate for TPA as a result. On examination the patient is at his neurologic baseline according to he and his at this time. He did have a brief disturbance this morning which seems to have resolved. He previously had been on many medications for risk factor modification including antihypertensives as well as antiplatelet medications and anti-lipid medications though he had stopped most of these as he has a fairly poor prognosis and he and his doctor as well as his had decided to change what they were doing. It is noted that he has not taken anything today to try and help with his symptoms and they spontaneously resolved. He underwent imaging of his head as well as broad labs. Labs do not identify any obvious cause for this patient's confusion. I believe likely this gentleman had a transient ischemic attack today, he does have a known previous injury in the brain which was identified again on CT today without any acute changes or bleeds. I discussed with the patient's the options for further investigation including MRI as well as admission for possible monitoring or possible discharge with follow-up, I did contact their primary physician Dr. Hopkins who is in agreement that we could start aspirin for this patient as well as a statin for this patient and he will see them tomorrow in clinic. Given that the patient has remained asymptomatic throughout his 3 hours in the emergency department had multiple labs which are reassuring and unremarkable CT of the head and he and his would prefer to go home believe it is safe for them to do so at this time, they were given a prescription for both her statin as well as her aspirin and discharged home with return precautions and follow- up tomorrow with Dr. Hopkins. - Vital Signs Vital signs: Temp Pulse Resp BP Pulse Ox 52 L 13 142/76 H 99 03/30/18 12:00 03/30/18 12:43 03/30/18 12:45 03/30/18 12:43 - Laboratory Result Diagrams: 03/30/18 08:05 03/30/18 08:05 Laboratory results interpreted by me: 03/30/18 03/30/18 08:05 08:05 Hgb 13.3 L RDW 20.2 H Eosinophils % 11.5 H Est GFR (Non-Af Amer) 58 L ALT < 6 L Creatine Kinase 41 L Discharge - Discharge Clinical Impression: TIA (transient ischemic attack) Condition: Stable Disposition: HOME, SELF-CARE Instructions: Transient Ischemic Attack ([facility]) Additional Instructions: He was seen today in the emergency department for your TIA. He had evaluation including a CAT scan of your head as well as blood work. The cause for your TIA was not obviously identified, I believe it could be related to a small stroke. I spoke to Dr. Hopkins he will see you in his office tomorrow. You have been given a prescription for aspirin, you should take the aspirin daily as well as the statin prescribed to you. Follow-up with your oncologist on as well to continue planning your care. Prescriptions: Aspirin [Aspirin 325 mg Tablet] 325 mg PO DAILY PRN #1 pkg PRN Reason: Atorvastatin Calcium [Lipitor] 80 mg PO DAILY #20 tablet Referrals: LINNEA REMY MD [Primary Care Provider] - Follow up as needed
[2018-03-30 12:57] VITALS: BP 142/76
== END 2018-03-30 12:56 | disposition home or self-care (01) ==
LOC: ER 07:36
DX: G45.9 Transient cerebral ischemic attack, unspecified (principal); R41.82 Altered mental status, unspecified; E78.00 Pure hypercholesterolemia, unspecified; I10 Essential (primary) hypertension; Z98.890 Other specified postprocedural states; Z88.6 Allergy status to analgesic agent; Z91.040 Latex allergy status; Z87.891 Personal history of nicotine dependence; Z87.820 Personal history of traumatic brain injury
CPT/HCPCS: 36415; 70450; 71045; 80053; 82550; 82553; 82962; 84484; 85025; 85610; 85730; 93005; 93010; 99285

== ENCOUNTER 2018-05-05 09:37 | Emergency (ER) | payer MEDICARE, OTHER ==
--- NOTE | 2018-05-05 09:59 | ER Document Report ---
ED General - General Mode of Arrival: Medic Information source: Patient, Relative TRAVEL OUTSIDE OF THE [place] IN LAST 30 DAYS: No <WESTLEY DICKSON - Last Filed: 05/05/18 10:45> <VERNELL AUSTIN - Last Filed: 05/05/18 12:30> - General Chief Complaint: S/S of Possible Stroke Stated Complaint: WEAKNESS Time Seen by Provider: 05/05/18 09:41 Notes: Patient is a 77 year old male with [place] Cell carcinoma with brain metastases, COPD, HTN, hypothyroidism presents to the emergency department via EMS complaining of a possible stroke. Patient at bedside states he does not remember what happened. states the patient's face began to "contort" to the right side and he was unable to speak. She states those symptoms were identical to when the patient had a TIA a few months ago so she proceeded to call EMS. Upon EMS arrival at approximately 0900 the patient was reported to be in the same condition. EMS reports the patient being able to speak again at 0910. also complains of weakness in the patient and shakiness in the legs bilaterally. She states the patient has done physical therapy for the weakness. 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 (WESTLEY DICKSON) This 77-year-old male patient had onset about 9 AM this morning of right face "drawing"and garbled speech. 911 was promptly called. EMS reports symptoms resolving about 9:10 AM while the patient was in the ambulance in route to the hospital. Patient did have a similar episode on 03/30/2018 which the describes is the exact same symptoms. He was seen in the emergency room and evaluated at that time and diagnosed with a TIA, and started on aspirin and a statin. He continues those medications. He is not a PA candidate for a number of reasons including complete resolution of all of his symptoms prior to arrival, and known metastatic disease to the brain. (VERNELL AUSTIN) - Related Data Allergies/Adverse Reactions: codeine Allergy (Verified 05/05/18 09:43) latex [Latex] Allergy (Verified 05/05/18 09:43) tetracycline Allergy (Verified 05/05/18 09:43) Past Medical History - General Information source: Patient, Relative - Social History Smoking Status: Former Smoker Cigarette use (# per day): No Chew tobacco use (# tins/day): No Frequency of alcohol use: None Family History: Reviewed & Not Pertinent - Past Medical History Cardiac Medical History: Reports: Hx Hypercholesterolemia, Hx Hypertension Pulmonary Medical History: Reports: Hx Asthma, Hx COPD Neurological Medical History: Reports: Other - TIAs Endocrine Medical History: Reports: Hx Hypothyroidism Malignancy Medical History: Reports Hx Skin Cancer - Squamous cell cancer in throat, treated via Cyberknife per , Reports Other - 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 GI Medical History: Reports: Hx Gastroesophageal Reflux Disease, Other - Feeding tube, currently removed as of 05/05/2018 Psychiatric Medical History: Reports: Hx Depression Past Surgical History: Reports: Other - Immunizations Hx Diphtheria, Pertussis, Tetanus Vaccination: Yes Hx Pneumococcal Vaccination: 05/27/06 <WESTLEY DICKSON - Last Filed: 05/05/18 10:45> Review of Systems - Review of Systems Constitutional: No symptoms reported EENT: No symptoms reported Cardiovascular: No symptoms reported Respiratory: No symptoms reported Gastrointestinal: No symptoms reported Genitourinary: No symptoms reported Musculoskeletal: No symptoms reported Skin: No symptoms reported Hematologic/Lymphatic: No symptoms reported Neurological/Psychological: See HPI, Speech impairment -: Yes All other systems reviewed and negative <WESTLEY DICKSON - Last Filed: 05/05/18 10:45> Physical Exam <WESTLEY DICKSON - Last Filed: 05/05/18 10:45> <VERNELL AUSTIN - Last Filed: 05/05/18 12:30> - Vital signs Vitals: BP 152/54 H 05/05/18 09:39 - Notes Notes: GENERAL: Alert, interacts well. No acute distress. HEAD: Normocephalic, atraumatic. No facial asymmetry. EYES: Patient keeps right eye closed which is chronic per history. Pupils equal , round, and reactive to light. Extraocular movements intact. ENT: Oral mucosa moist, tongue midline. NECK: Full range of motion. Supple. Trachea midline. No bruits auscultated. LUNGS: Clear to auscultation bilaterally, no wheezes, rales, or rhonchi. No respiratory distress. HEART: Regular rate and rhythm. No murmurs, gallops, or rubs. ABDOMEN: Soft, non-tender. Non-distended. Bowel sounds present in all 4 quadrants. EXTREMITIES: Moves all 4 extremities spontaneously. No edema, radial and dorsalis pedis pulses 2/4 bilaterally. No cyanosis. NEUROLOGICAL: Alert and oriented x3. Normal speech. No focal neurological deficits. PSYCH: Normal affect, normal mood. SKIN: Warm, dry, normal turgor. No rashes or lesions noted. (WESTLEY DICKSON) Course - Laboratory Result Diagrams: 05/05/18 10:30 05/05/18 10:30 <WESTLEY DICKSON - Last Filed: 05/05/18 10:45> - Laboratory Result Diagrams: 05/05/18 10:30 05/05/18 10:30 - Diagnostic Test Radiology reviewed: Image reviewed, Reports reviewed - CT scan of the head does not show acute changes, there are chronic changes in the right frontal hemispheric region consistent with the gamma knife treatment to the known brain metastases. - EKG Interpretation by [place] EKG shows normal: Sinus rhythm, [place], Intervals, QRS Complexes, ST-T Waves Rate: Normal - 54 Rhythm: NSR When compared to previous EKG there are: No significant change - Consults Dr. Hopkins Time consulted: 12:25 Consulted provider: follow-up in office - Start on Plavix 75 mg daily, follow- up in office tomorrow. <VERNELL AUSTIN - Last Filed: 05/05/18 12:30> - Vital Signs Vital signs: Temp Pulse Resp BP Pulse Ox 97.6 F 54 L 18 156/53 H 99 05/05/18 10:01 05/05/18 11:04 05/05/18 11:04 05/05/18 11:04 05/05/18 11:04 - Laboratory Laboratory results interpreted by md: 05/05/18 05/05/18 05/05/18 10:30 10:30 12:00 RDW 19.6 H Eosinophils % 10.2 H Est GFR (Non-Af Amer) 59 L ALT 20 L Creatine Kinase 52 L Urine Urobilinogen 2.0 H Discharge <WESTLEY DICKSON - Last Filed: 05/05/18 10:45> <VERNELL AUSTIN - Last Filed: 05/05/18 12:30> - Discharge Clinical Impression: Transient ischemic attack (TIA), Adrián cell carcinoma Lower extremity weakness Qualifiers: Laterality: bilateral Qualified Code(s): R29.898 - Other symptoms and signs involving the musculoskeletal system Condition: Stable Disposition: HOME, SELF-CARE Additional Instructions: Transient Ischemic Attack You have been diagnosed as having a transient ischemic attack (TIA). This is caused when an artery to the brain has been temporarily blocked. It can result in visual changes, difficulty with speech, and weakness or numbness -- usually limited to one side of the body. TIA symptoms usually resolve within an hour, but a TIA is serious, as it may be a warning sign of an impending stroke. To prevent further episodes, you may be placed on medication to reduce the possibility that your platelets will aggregate and form blood clots in the arteries that supply the brain. Usually, this includes aspirin and sometimes other platelet inhibitors. Further evaluation is often necessary to make an exact diagnosis as to where these blood clots are originating, and if anything else needs to be done to correct the problem. Call the physician or go to the emergency room if episodes occur with increasing frequency. If symptoms occur that don't go away within a few minutes , call 911. Start taking the Plavix today as prescribed. Follow-up with Dr. Hopkins tomorrow in the office. RETURN TO THE EMERGENCY ROOM IF ANY NEW OR WORSENING SYMPTOMS. Prescriptions: Clopidogrel Bisulfate [Plavix 75 mg Tablet] 75 mg PO DAILY #30 tablet Referrals: LINNEA REMY MD [ACTIVE STAFF] - Follow up as needed AURORA HOPKINS MD [Primary Care Provider] - Follow up tomorrow Scribe Attestation: 05/05/18 11:05 I personally performed the services described in the documentation, reviewed and edited the documentation which was dictated to the scribe in my presence, and it accurately records my words and actions. (VERNELL AUSTIN) Scribe Documentation - Scribe Written by Mera:: Mera Rubio, 05/05/2018 acting as scribe for :: Bakari <WESTLEY DICKSON - Last Filed: 05/05/18 10:45>
--- NOTE | 2018-05-05 10:09 | RADIOLOGY REPORT (SQ) ---
EXAM DESCRIPTION: CT HEAD WITHOUT COMPLETED DATE/TIME: 05/05/2018 9:49 am REASON FOR STUDY: bed 11 stroke alert COMPARISON: 03/30/2018 TECHNIQUE: Axial images acquired through the brain without intravenous contrast. Images reviewed wi th bone, brain and subdural windows. Additional sagittal and coronal reconstructions were generated. Images stored on PACS. All CT scanners at this facility use dose modulation, iterative reconstruction, and/or weight based d osing when appropriate to reduce radiation dose to as low as reasonably achievable (ALARA). [facility]: Dose Right [facility]: CareDose [facility]: Dose Right [facility]: Teradose 4D [facility]: [employer] RADIATION DOSE: CT Rad equipment meets quality standard of care and radiation dose reduction techniq ues were employed. CTDIvol: 53.2 mGy. DLP: 1230 mGy-cm. mGy. LIMITATIONS: None. FINDINGS: VENTRICLES: Normal size and contour. CEREBRUM: No masses. No hemorrhage. No midline shift. No evidence for acute infarction. Unchanged encephalomalacia or post treatment change of the right frontal hemisphere. CEREBELLUM: No masses. No hemorrhage. No alteration of density. No evidence for acute infarction. EXTRAAXIAL SPACES: No fluid collections. No masses. ORBITS AND GLOBE: No intra- or extraconal masses. Normal contour of globe without masses. CALVARIUM: No fracture. PARANASAL SINUSES: No fluid or mucosal thickening. SOFT TISSUES: No mass or hematoma. OTHER: No other significant finding. IMPRESSION: 1. No CT evidence of acute stroke or hemorrhage. 2. Unchanged encephalomalacia or post treatment change of the right frontal hemisphere, in keeping w ith history of prior gamma knife therapy. EVIDENCE OF ACUTE STROKE: NO. Findings were discussed with Dr. Villegas, 1003 hours, 05/05/2018 COMMENT: Quality ID # [id number]: Final reports with documentation of one or more dose reduction techniques (e.g., Automated exposure control, adjustment of the mA and/or kV according to patient size, use of iterative reconstruction technique) TECHNICAL DOCUMENTATION: JOB ID: [id number] [employer]- All Rights Reserved Reading location - IP/workstation name: [email or web address]
[2018-05-05 10:43] LABS: ABSOLUTE BASOPHILS # (AUTO) 0.1 10^3/uL (0.0-0.2); ABSOLUTE EOSINOPHILS # (AUTO) 0.5 10^3/uL (0.0-0.6); ABSOLUTE LYMPHOCYTES (AUTO) 1.9 10^3/uL (0.5-4.7); ABSOLUTE MONOCYTES (AUTO) 0.4 10^3/uL (0.1-1.4); ABSOLUTE NEUT (AUTO) 2.2 10^3/uL (1.7-8.2); BASOPHILS % (AUTO) 1.1 % (0-2); EOSINOPHILS % (AUTO) 10.2 % (0-6); HEMATOCRIT 40.7 % (37.9-51.0); HEMOGLOBIN 13.7 g/dL (13.5-17.0); INTERNATIONAL RATION (INR) 0.96; LYMPHOCYTES % (AUTO) 37.3 % (13-45); MEAN CORPUSCULAR HEMOGLOBIN 28.1 pg (27.0-33.4); MEAN CORPUSCULAR HGB CONC 33.7 g/dL (32.0-36.0); MEAN CORPUSCULAR VOLUME 83 fl (80-97); PLATELET COUNT 196 10^3/uL (150-450); RED BLOOD COUNT 4.88 10^6/uL (4.35-5.55); RED CELL DISTRIBUTION WIDTH 19.6 % (11.5-14.0); SEGMENTED NEUTROPHILS % (AUTO) 44.4 % (42-78); TOTAL CELLS COUNTED % (AUTO) 100 %
[2018-05-05 10:44] LABS: PARTIAL THROMBOPLASTIN TIME 28.6 SEC (23.5-35.8)
[2018-05-05 10:47] LABS: PROTHROMBIN TIME 13.3 SEC (11.4-15.4)
[2018-05-05 11:04] LABS: ALANINE AMINOTRANSFERASE 20 U/L (21-72); ALBUMIN 3.9 g/dL (3.5-5.0); ALKALINE PHOSPHATASE 119 U/L (38-126); ANION GAP 10 (5-19); ASPARTATE AMINO TRANSFERASE 23 U/L (17-59); BILIRUBIN,DIRECT 0.2 mg/dL (0.0-0.4); BILIRUBIN,TOTAL 0.7 mg/dL (0.2-1.3); BLOOD UREA NITROGEN 17 mg/dL (7-20); CALCIUM 9.4 mg/dL (8.4-10.2); CARBON DIOXIDE 28 mmol/L (22-30); CHLORIDE 105 mmol/L (98-107); CREATINE KINASE 52 U/L (55-170); GLUCOSE 85 mg/dL (75-110); POTASSIUM 4.3 mmol/L (3.6-5.0); SODIUM 143.2 mmol/L (137-145); TOTAL PROTEIN 6.6 g/dL (6.3-8.2)
[2018-05-05 11:10] LABS: ANISOCYTOSIS 2+; OVALOCYTES 1+; PLATELET COMMENT ADEQUATE; POIKILOCYTOSIS 1+; POLYCHROMASIA SLIGHT
--- NOTE | 2018-05-05 11:16 | RADIOLOGY REPORT (SQ) ---
EXAM DESCRIPTION: CHEST SINGLE VIEW COMPLETED DATE/TIME: 05/05/2018 11:02 am REASON FOR STUDY: bed 11 stroke alert COMPARISON: 03/30/2018 EXAM PARAMETERS: NUMBER OF VIEWS: One view. TECHNIQUE: Single frontal radiographic view of the chest acquired. RADIATION DOSE: NA LIMITATIONS: None. FINDINGS: LUNGS AND PLEURA: No opacities, masses or pneumothorax. No pleural effusion. MEDIASTINUM AND HILAR STRUCTURES: No masses. Contour normal. HEART AND VASCULAR STRUCTURES: Heart normal in size. Normal vasculature. BONES: No acute findings. HARDWARE: None in the chest. OTHER: No other significant finding. IMPRESSION: NO ACUTE RADIOGRAPHIC FINDING IN THE CHEST. TECHNICAL DOCUMENTATION: JOB ID: [id number] [employer]- All Rights Reserved Reading location - IP/workstation name: [email or web address]
[2018-05-05 11:18] LABS: CREATINE KINASE MB 0.23 ng/mL (<4.55); TROPONIN I < 0.012 ng/mL
--- NOTE | 2018-05-05 11:31 | EKG REPORT ---
SEVERITY:- NORMAL ECG - SINUS RHYTHM : Confirmed by: Edie Fang MD 05-May-2018 11:31:20
[2018-05-05 12:13] LABS: APPEARANCE,URINE CLEAR; BILIRUBIN,URINE NEGATIVE (NEGATIVE); COLOR,URINE YELLOW; GLUCOSE, URINE NEGATIVE (NEGATIVE); KETONES,URINE NEGATIVE (NEGATIVE); LEUKOCYTE ESTERASE,URINE NEGATIVE (NEGATIVE); NITRITE,URINE NEGATIVE (NEGATIVE); PROTEIN,URINE NEGATIVE (NEGATIVE); URINE SPECIFIC GRAVITY 1.015
[2018-05-05 13:00] VITALS: BP 139/64
== END 2018-05-05 13:15 | disposition home or self-care (01) ==
LOC: ER 09:37
DX: G45.9 Transient cerebral ischemic attack, unspecified (principal); C4A.9 Merkel cell carcinoma, unspecified; R29.898 Other symptoms and signs involving the musculoskeletal system; R53.1 Weakness; C79.31 Secondary malignant neoplasm of brain; E78.00 Pure hypercholesterolemia, unspecified; I10 Essential (primary) hypertension; J44.9 Chronic obstructive pulmonary disease, unspecified; E03.9 Hypothyroidism, unspecified; Z91.040 Latex allergy status; Z88.6 Allergy status to analgesic agent
CPT/HCPCS: 36415; 70450; 71045; 80053; 81001; 82550; 82553; 82962; 84484; 85025; 85610; 85730; 93005; 93010; 99285

== ENCOUNTER → 2018-05-08 | Outpatient (CLI) | payer MEDICARE, OTHER ==
[2018-05-08 10:16] LABS: HEMATOCRIT 41.7 % (37.9-51.0); HEMOGLOBIN 14.1 g/dL (13.5-17.0); MEAN CORPUSCULAR HEMOGLOBIN 28.2 pg (27.0-33.4); MEAN CORPUSCULAR HGB CONC 33.9 g/dL (32.0-36.0); MEAN CORPUSCULAR VOLUME 83 fl (80-97); PLATELET COUNT 209 10^3/uL (150-450); RED BLOOD COUNT 5.01 10^6/uL (4.35-5.55); RED CELL DISTRIBUTION WIDTH 18.9 % (11.5-14.0); WHITE BLOOD COUNT 6.1 10^3/uL (4.0-10.5)
[2018-05-08 11:42] LABS: ALANINE AMINOTRANSFERASE 17 U/L (21-72); ALKALINE PHOSPHATASE 117 U/L (38-126); ANION GAP 10 (5-19); ASPARTATE AMINO TRANSFERASE 22 U/L (17-59); BILIRUBIN,DIRECT 0.4 mg/dL (0.0-0.4); BILIRUBIN,TOTAL 0.7 mg/dL (0.2-1.3); BLOOD UREA NITROGEN 20 mg/dL (7-20); CALCIUM 9.5 mg/dL (8.4-10.2); CARBON DIOXIDE 28 mmol/L (22-30); CHLORIDE 106 mmol/L (98-107); GLUCOSE 113 mg/dL (75-110); POTASSIUM 3.8 mmol/L (3.6-5.0); SODIUM 143.6 mmol/L (137-145); TOTAL PROTEIN 6.8 g/dL (6.3-8.2)
== END ==
LOC: OD 09:38
PROVIDERS: ATTEND Internal Medicine Nephrology
DX: I12.9 Hypertensive chronic kidney disease with stage 1 through stage 4 chronic kidney disease, or unspecified chronic kidney disease (principal); N18.3 Chronic kidney disease, stage 3 (moderate)
CPT/HCPCS: 36415; 80053; 83735; 84100; 85027

== ENCOUNTER → 2018-05-12 | Outpatient (CLI) | payer MEDICARE, OTHER ==
--- NOTE | 2018-05-12 15:49 | RADIOLOGY REPORT (SQ) ---
EXAM DESCRIPTION: CAROTID DOPPLER COMPLETED DATE/TIME: 05/12/2018 3:28 pm REASON FOR STUDY: STROKE I63.9 CEREBRAL INFARCTION, UNSPECIFIED G45.9 TRANSIENT CEREBRAL ISCHEMIC ATTACK, UNSPECIFIED COMPARISON: None. TECHNIQUE: Grayscale ultrasound, Doppler velocity and spectra, and color Doppler images acquired of the extra-cranial carotid and vertebral arteries. Images stored on PACS. LIMITATIONS: None. FINDINGS: RIGHT CAROTID CCA Velocities: Within normal limits. ICA Velocities Peak systolic 0.67 m/s. End diastolic 0.21 m/s. Proximal ICA/CCA peak systolic ratio 1.46. Spectra normal. No significant plaque. LEFT CAROTID CCA Velocities: Within normal limits. ICA Velocities Peak systolic 0.86 m/s. End diastolic 0.26 m/s. Proximal ICA/CCA peak systolic ratio 1.0. Spectra normal. No significant plaque. VERTEBRAL ARTERIES: Antegrade flow. Normal waveforms. SUBCLAVIAN ARTERIES: No finding. OTHER: No other significant finding. IMPRESSION: NO HEMODYNAMICALLY SIGNIFICANT STENOSIS. COMMENT: Quality ID #[id number]: Velocity criteria are extrapolated from the diameter data as defined by t he Society of Radiologists in Ultrasound Consensus Conference. Radiology 2003: 229; 340-346. TECHNICAL DOCUMENTATION: JOB ID: [id number] [employer]- All Rights Reserved Reading location - IP/workstation name: [email or web address]
--- NOTE | 2018-05-12 21:49 | XCELERA REPORT ---
[address] [address] Transthoracic Echocardiogram Report Name: LI CHENG Age: 77 yrs Gender: Male : 1940 Patient Status: Outpatient Patient Location: Study Date: 05/12/2018 01:36 PM Height: 75 in Weight: 197 lb BSA: 2.2 m2 Procedure: A complete two-dimensional transthoracic echocardiogram was performed (2D, M-mode, spectral and color flow Doppler). The study was technically difficult with many images being suboptimal in quality. Reason For Study: STROKE Ordering Physician: AURORA LOWRY Performed By: Anthony Mesa Interpretation Summary The left ventricular ejection fraction is normal. There is borderline concentric left ventricular hypertrophy. The left ventricle is grossly normal size. Doppler measurements suggest pseudonormalized left ventricular relaxation, which is associated with grade II/IV or mild to moderate diastolic dysfunction Wall motion cannot be accurately commented on, but no definite regional wall motion abnormalities noted. The right ventricular systolic function is normal. The right ventricle is grossly normal size. The left atrium is mildly dilated. The right atrium is normal in size There is a mild amount of mitral regurgitation There is no mitral valve stenosis. No aortic regurgitation is present. There is no aortic valve stenosis There is a trace to mild amount of tricuspid regurgitation There is mild pulmonary hypertension by echo Right ventricular systolic pressure is estimated to be elevated at 30-40mmHg. The aortic root is not well visualized but is probably normal size. The inferior vena cava was not well visualized Minimal pericardial effusion. No definite cardiac source of CVA/TIA noted on this particular trans-thoracic study. May consider mobile cardiac telemetry monitoring (MCT) for ruling out transient AFIB. Consider LITO if clinically indicated. MMode/2D Measurements & Calculations RVDd: 2.8 cm LVIDd: 5.1 cm FS: 36.1 % Ao root diam: 3.1 cm IVSd: 0.82 cm LVIDs: 3.3 cm EDV(Teich): 125.7 ml Ao root area: 7.5 cm2 LVPWd: 0.86 cm ESV(Teich): 43.6 ml LA dimension: 4.0 cm EF(Teich): 65.3 % Doppler Measurements & Calculations MV E max andrew: MV P1/2t max andrew: Ao V2 max: LV V1 max P.4 cm/sec 89.3 cm/sec 122.2 cm/sec 3.9 mmHg MV A max andrew: MV P1/2t: 98.0 msec Ao max P.0 mmHg LV V1 max: 103.2 cm/sec MVA(P1/2t): 2.2 cm2 98.7 cm/sec MV E/A: 0.85 MV dec slope: 266.8 cm/sec2 MV dec time: 0.27 sec PA V2 max: TR max andrew: MV P1/2t-pr_phl: 49.9 cm/sec 271.5 cm/sec 98.0 msec PA max PG: TR max P.5 mmHg 0.99 mmHg Left Ventricle The left ventricle is grossly normal size. There is borderline concentric left ventricular hypertrophy. The left ventricular ejection fraction is normal. Doppler measurements suggest pseudonormalized left ventricular relaxation, which is associated with grade II/IV or mild to moderate diastolic dysfunction. Wall motion cannot be accurately commented on, but no definite regional wall motion abnormalities noted. Right Ventricle The right ventricle is grossly normal size. The right ventricular systolic function is normal. Atria The right atrium is normal in size. The left atrium is mildly dilated. Interarterial septum not well visualized and not well dopplered. Cannot comment on ASD/PFO presence. Mitral Valve The mitral valve is grossly normal. There is no mitral valve stenosis. There is a mild amount of mitral regurgitation. Aortic Valve The aortic valve is not well visualized secondary to technical limitations. There is no aortic valve stenosis. No aortic regurgitation is present. Tricuspid Valve The tricuspid valve is not well visualized secondary to technical limitations. There is no tricuspid stenosis. There is a trace to mild amount of tricuspid regurgitation. There is mild pulmonary hypertension by echo. Right ventricular systolic pressure is estimated to be elevated at 30-40mmHg. Pulmonic Valve The pulmonic valve is not well visualized. Great Vessels The aortic root is not well visualized but is probably normal size. The inferior vena cava was not well visualized. Effusions Minimal pericardial effusion. Incidental Findings No definite cardiac source of CVA/TIA noted on this particular trans-thoracic study. May consider mobile cardiac telemetry monitoring (MCT) for ruling out transient AFIB. Consider LITO if clinically indicated. : AURORA LOWRY > Augusta Wang
== END ==
LOC: SP 14:09
PROVIDERS: ATTEND Family Medicine
DX: G45.9 Transient cerebral ischemic attack, unspecified (principal)
CPT/HCPCS: 93306; 93880

== ENCOUNTER → 2018-05-13 | Outpatient (CLI) | payer MEDICARE, OTHER ==
--- NOTE | 2018-05-14 16:55 | RADIOLOGY REPORT (SQ) ---
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 TECHNIQUE: Blood glucose level was verified. Above dose of FDG was injected intravenously. 2-D seg mented attenuation correction images were obtained from the base of the skull to the midthighs. Nonc ontrast CT images were obtained for attenuation correction and fusion with emission images. CT image s were performed without oral or intravenous contrast and are not sensitive for parenchymal lesions. A series of overlapping emission PET images were obtained. Images reviewed and manipulated at [facility] work station by the radiologist. Images stored on PACS. LIMITATIONS: None. FINDINGS: HEAD AND NECK: Increased focal sublingual metabolic activity (max SUV 12.3, average 8.2) w ithout CT correlate. Additional non-specific areas of asymmetric focal area of increased FDG uptake within the right posterior nasopharynx (max SUV 6.1, average 5.2) and at the level of the right voca l fold without CT correlates (max SUV 4.4, average 3.0). No evidence of additional hypermetabolic ac tivity or lymphadenopathy within the head and neck. CHEST: No areas of abnormal metabolic activity in the chest. ABDOMEN AND PELVIS: Focal area of increased uptake within the cecum without CT correlate (max SUV 5.3 , average 4.6), likely related to physiologic bowel activity. No additional areas of abnormal metabo lic activity in the abdomen or pelvis. Expected physiologic activity is present in the genitourinary system and bowel. PROXIMAL LOWER EXTREMITIES: Postsurgical change within the right groin with unchanged mild asymmetri c activity within the scan (max SUV 3.9, average 2.7). No areas of abnormal metabolic activity in th e soft tissues of the lower extremities. BONES: No abnormal metabolic activity in the visualized skeleton. ADDITIONAL CT FINDINGS: No evidence of acute process. Scattered coronary atherosclerosis. Cholelit hiasis. Unchanged skin thickening within the right groin. Hydrocele. IMPRESSION: Increased focal sublingual metabolic activity (max SUV 12.3, average 8.2) without CT cor relate. Additional non-specific areas of asymmetric focal area of increased FDG uptake within the ri ght posterior nasopharynx (max SUV 6.1, average 5.2) and at the level of the right vocal fold without CT correlates (max SUV 4.4, average 3.0). Consider direct visualization for mucosal lesions. TECHNICAL DOCUMENTATION: JOB ID: [id number] [employer]- All Rights Reserved Reading location - IP/workstation name: [email or web address]
== END ==
LOC: RAD 18:59
PROVIDERS: ATTEND Internal Medicine
DX: C13.2 Malignant neoplasm of posterior wall of hypopharynx (principal)
CPT/HCPCS: 78815; A9552

== ENCOUNTER 2018-06-05 11:20 | Observation (INO) | payer MEDICARE, OTHER ==
[~2018-06-05 11:20] MED LIST changes: -CEFAZOLIN 2 GM/D5W RTU 2 GM/50 ML RTUPB IV PRN; +CEFAZOLIN SODIUM 2 GM in DEXTROSE 5%-WATER 100 ML IV SCH; -LACTATED RINGERS 1000 ML IV PRN
[2018-06-05] MEDS ORDERED: DEXAMETHASONE SOD PHOSPHATE INJ 4 MG/1 ML VIAL ONE ×2 (11:56→14:03)
[2018-06-05] MEDS ORDERED: SUCCINYLCHOLINE CHLORIDE INJ 200 MG/10 ML VIAL ONE (11:56)
[2018-06-05] MEDS ORDERED: GLYCOPYRROLATE 1 MG/5 ML SYRINGE ONE (11:56)
[2018-06-05] MEDS ORDERED: ONDANSETRON HCL INJ/PF 4 MG/2 ML SDV ONE ×2 (11:56→14:03)
[2018-06-05] MEDS ORDERED: ROCURONIUM BROMIDE INJ 50 MG/5 ML VIAL IV ONE (11:56)
[2018-06-05] MEDS ORDERED: LIDOCAINE 2% INJ-PF (20 MG/ML) 2 ML AMPUL ONE (11:56)
[2018-06-05 12:23] LABS: INTERNATIONAL RATION (INR) 0.97; PROTHROMBIN TIME 13.4 SEC (11.4-15.4)
[2018-06-05 12:24] LABS: PARTIAL THROMBOPLASTIN TIME 28.9 SEC (23.5-35.8)
[2018-06-05] MEDS ORDERED: BUPIVACAINE HCL 0.5%/EPI 1:200000 INJ 1.8 ML CARTRIDGE ONE (13:22)
[2018-06-05] MEDS ORDERED: OXYMETAZOLINE HCL 0.05% NASAL SPRAY 15 ML BOTTLE ONE (13:22)
[2018-06-05] MEDS ORDERED: MINERAL OIL (STERILE) 10 ML VIAL ONE (13:22)
[2018-06-05] MEDS ORDERED: BACITRACIN ZINC OINTMENT 15 GM ONE (13:23)
[2018-06-05] MEDS ORDERED: EPHEDRINE SULFATE INJ 50 MG/1 ML AMPULE ONE (14:03)
[2018-06-05] MEDS ORDERED: FENTANYL CITRATE INJ/PF 100 MCG/2 ML AMPUL ONE (14:03)
[2018-06-05] MEDS ORDERED: MIDAZOLAM 2 MG/2 ML INJ ONE (14:04)
[2018-06-05] MEDS ORDERED: PROPOFOL INJ 200 MG/20 ML VIAL IV ONE (14:04)
[2018-06-05] MEDS ORDERED: FENTANYL CITRATE INJ/PF 100 MCG/2 ML AMPUL IV PRN ×6 (14:54→15:36)
[2018-06-05] MEDS ORDERED: PROMETHAZINE HCL INJ 25 MG/1 ML VIAL IV PRN ×4 (14:54→16:30)
[2018-06-05] MEDS ORDERED: DIPHENHYDRAMINE HCL 50 MG/ML VIAL IV PRN ×2 (14:54→15:36)
[2018-06-05] MEDS ORDERED: SUGAMMADEX SODIUM 200 MG/2 ML SDV IV ONE (15:06)
[2018-06-05] MEDS ORDERED: MEPERIDINE HCL/PF INJ 25 MG/1 ML DISP.SYRIN IV PRN (15:36)
[2018-06-05] MEDS ORDERED: MORPHINE SULFATE 10 MG/ML INJ IV PRN ×2 (15:36→16:30)
[2018-06-05] MEDS ORDERED: HYDROCOD/ACETAMIN 7.5-325 MG/15 ML ORAL SOLN UDCUP PO PRN (16:30)
[2018-06-05] MEDS ORDERED: RINGERS SOLUTION,LACTATED 1,000 ML IV PRN (16:30)
[2018-06-05] MEDS ORDERED: ONDANSETRON HCL INJ/PF 4 MG/2 ML SDV IV PRN ×2 (16:30→17:36)
[2018-06-05] MEDS ORDERED: HYDROCODONE/ACETAMINOPHEN 5-325 MG TABLET PO PRN (17:37)
[2018-06-05] MEDS ORDERED: OXYCODONE-ACETAMINOPHEN 5-325 MG TABLET ONE (17:43)
[2018-06-05] MEDS ORDERED: METOPROLOL TARTRATE 25 MG TABLET ONE (18:51)
[2018-06-05 19:44] VITALS: BP 172/94
[2018-06-05] MEDS ORDERED: METOPROLOL TARTRATE 50 MG TABLET PO ONE (19:45)
--- NOTE | 2018-06-08 07:07 | OPERATIVE REPORT E ---
Operative Report NAME: LI CHENG : 1940 AGE: 78Y DATE OF SURGERY: 06/05/2018 ROOM: OR PREOPERATIVE DIAGNOSES: 1. HISTORY OF HEAD AND NECK CANCER. 2. CONCERN FOR CANCER RECURRENCE. POSTOPERATIVE DIAGNOSES: 1. HISTORY OF HEAD AND NECK CANCER. 2. CONCERN FOR CANCER RECURRENCE. OPERATION: 1. Microscopic direct laryngoscopy with right vocal cord/arytenoid process biopsies. 2. Bilateral transnasal rigid surgical endoscopy, biopsies from the left and right nasopharynx. 3. Rigid endoscopic-assisted bilateral nasal septum cautery for intraoperative epistaxis. SURGEON: IVAN CORONA D.O. ANESTHESIA: General endotracheal tube. ANESTHESIA STAFF: PETER Al. ESTIMATED BLOOD LOSS: 10 mL FLUIDS: None. COMPLICATIONS: None. DRAINS: None. SPONGE COUNT: Verified. MATERIALS FORWARDED SPECIMEN: 1. Right posterior vocal cord/arytenoid process area, with area of leukoplakia-type changes, with intraoperative frozen section being unremarkable. 2. 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 3. Left nasopharynx biopsies with intraoperative frozen section being unremarkable. 4. Right nasopharynx biopsies. 5. Right posterior vocal cord/arytenoid process biopsies sent for permanent pathology. 6. Right nasopharynx biopsies sent for permanent pathology evaluation. 7. Left nasopharynx biopsies sent for permanent pathology evaluation. FINDINGS: 1. Right posterior vocal cord/arytenoid process with focal area of leukoplakia-type changes, and this area is consistent with the increased SUV activity on recent PET imaging. 2. Right nasopharynx with diffuse area of erythema, but no exophytic lesion or friable/tissue bleeding noted, and this area corresponded with the area of increased SUV activity as noted on recent PET imaging. 3. Left nasopharynx with mucosal nodules, but no erythema. INDICATIONS: This is a 78-year-old white male patient who has been seen, evaluated, and followed in the [place] otolaryngology office and the [facility] Oncology office. The patient was referred back to ENT recently by [facility] Oncology after a recent surveillance PET study with increased SUV activity noted at the level of the right larynx, right nasopharynx, and sublingual area. The patient was evaluated clinically, which included flexible endoscopy, with a right posterior vocal cord/arytenoid process area of leukoplakia that was focal in nature, right nasopharynx was with diffuse erythema, but no exophytic mass or lesion, and the sublingual area was unremarkable on examination. There was extensive discussion with the patient and his and Dr. Nolan of [facility] Oncology, with recommendation and plan for intraoperative endoscopy, micro DL, and biopsies, which all were in agreement with. The procedures and their risks and complications were discussed in detail with the patient. He voiced an understanding of the described surgical plan, agreed to proceed, and consent was obtained. PROCEDURE: The patient was taken to the main operating room and was placed on the operating room table in the supine position. Appropriate monitors were placed. Using mask and IV access, general anesthesia was induced. The patient was transorally intubated without difficulty. At this point, the patient was rotated 90 degrees and was positioned and prepped for the above-mentioned procedures. At this point, the patient had a mouth guard placed over the upper gingival surfaces. A rigid laryngoscope was passed, bringing the vocal cords into clear view, and the patient was placed into indirect suspension. A 0-degree rigid Shafer merari was used for intraoperative photos. Next, the microscope was brought into position, and with laryngeal instrumentation the right posterior vocal cord/arytenoid process area of leukoplakia was biopsied as described above. Specimens were passed off for both permanent and intraoperative frozen section evaluation. An Afrin-soaked neuro philipp was next placed over the site of biopsies. The indirect suspension was released and the rigid laryngoscope was withdrawn from the patient. The mouth guard was also removed and there was no damage to the lips or gums. At this point, attention was now turned to the patient's sinonasal distribution. Under bilateral 0-degree rigid surgical transnasal endoscopy, biopsies were obtained as described above for both permanent pathology and intraoperative frozen section evaluation. There was extensive suction electrocautery that was performed to provide adequate hemostasis. There was also intraoperative bleeding that was noted at the patient's septum from passing instrumentation and endoscopes. At this point, silver nitrate cautery was performed bilateral under direct visualization with the 0-degree endoscope. Once complete, bacitracin ointment was applied to each side of the nasal septum. The patient was noted to have adequate hemostasis. He was next returned to the Anesthesia staff and allowed to emerge from general anesthesia. The patient was extubated and the single neuro philipp was brought out with the endotracheal tube for sponge count completion. The patient was then transported to the postanesthesia recovery unit in stable condition. There were no complications. DICTATING PHYSICIAN: IVAN CORONA D.O. [id number] PHY#: [id number] ID: [id number] JOB#: [id number] ACCT: [id number] cc:IVAN CORONA D.O. >
== END 2018-06-05 19:30 | disposition home or self-care (01) ==
LOC: OROUT 11:20 → INOR 11:21
PROVIDERS: ADMIT Otolaryngology; ATTEND Otolaryngology
PROC: 09BN8ZX Excision of Nasopharynx, Via Natural or Artificial Opening Endoscopic, Diagnostic (ICD-10-PCS; 2018-06-05)
PROC: 093K8ZZ Control Bleeding in Nasal Mucosa and Soft Tissue, Via Natural or Artificial Opening Endoscopic (ICD-10-PCS; 2018-06-05)
PROC: 0CBT8ZX Excision of Right Vocal Cord, Via Natural or Artificial Opening Endoscopic, Diagnostic (ICD-10-PCS; principal; 2018-06-05 13:30)
DX: J38.3 Other diseases of vocal cords (principal); J39.2 Other diseases of pharynx; R13.10 Dysphagia, unspecified; L57.0 Actinic keratosis; E07.9 Disorder of thyroid, unspecified; J34.2 Deviated nasal septum; J95.71 Accidental puncture and laceration of a respiratory system organ or structure during a respiratory system procedure; R04.0 Epistaxis; Y83.8 Other surgical procedures as the cause of abnormal reaction of the patient, or of later complication, without mention of misadventure at the time of the procedure; Y72.3 Surgical instruments, materials and otorhinolaryngological devices (including sutures) associated with adverse incidents; Y92.234 Operating room of hospital as the place of occurrence of the external cause; Z85.818 Personal history of malignant neoplasm of other sites of lip, oral cavity, and pharynx; Z79.899 Other long term (current) drug therapy; Z79.02 Long term (current) use of antithrombotics/antiplatelets; Z98.890 Other specified postprocedural states; Z86.73 Personal history of transient ischemic attack (TIA), and cerebral infarction without residual deficits; Z85.821 Personal history of Merkel cell carcinoma
CPT/HCPCS: 31536; 92511; 31238; 36415; 84132; 85610; 85730; 88342 ×2; 88341 ×2; 88305 ×2; 88331 ×2; J2250; J3490 ×6; J0690; J1100; J3010; A9270 ×2; J0330; J2405; J2704; 320

== ENCOUNTER 2018-06-16 09:14 | Emergency (ER) | payer MEDICARE, OTHER ==
[2018-06-16 10:12] LABS: HEMATOCRIT 39.3 % (37.9-51.0); HEMOGLOBIN 13.6 g/dL (13.5-17.0); MEAN CORPUSCULAR HEMOGLOBIN 29.8 pg (27.0-33.4); MEAN CORPUSCULAR HGB CONC 34.7 g/dL (32.0-36.0); MEAN CORPUSCULAR VOLUME 86 fl (80-97); PLATELET COUNT 245 10^3/uL (150-450); RED BLOOD COUNT 4.57 10^6/uL (4.35-5.55); RED CELL DISTRIBUTION WIDTH 14.9 % (11.5-14.0); WHITE BLOOD COUNT 5.6 10^3/uL (4.0-10.5)
[2018-06-16 10:13] LABS: INTERNATIONAL RATION (INR) 0.98
[2018-06-16 10:14] LABS: PARTIAL THROMBOPLASTIN TIME 28.6 SEC (23.5-35.8)
[2018-06-16 10:16] LABS: PROTHROMBIN TIME 13.5 SEC (11.4-15.4)
[2018-06-16 10:24] LABS: ALANINE AMINOTRANSFERASE 32 U/L (21-72); ALBUMIN 3.9 g/dL (3.5-5.0); ALKALINE PHOSPHATASE 126 U/L (38-126); ANION GAP 7 (5-19); ASPARTATE AMINO TRANSFERASE 22 U/L (17-59); BILIRUBIN,DIRECT 0.2 mg/dL (0.0-0.4); BILIRUBIN,TOTAL 0.7 mg/dL (0.2-1.3); BLOOD UREA NITROGEN 22 mg/dL (7-20); CALCIUM 9.6 mg/dL (8.4-10.2); CARBON DIOXIDE 28 mmol/L (22-30); CHLORIDE 108 mmol/L (98-107); GLUCOSE 89 mg/dL (75-110); POTASSIUM 4.5 mmol/L (3.6-5.0); SODIUM 142.5 mmol/L (137-145); TOTAL PROTEIN 6.4 g/dL (6.3-8.2)
[2018-06-16 10:39] LABS: ABSOLUTE LYMPHOCYTES# (MANUAL) 1.7 10^3/uL (0.5-4.7); ABSOLUTE MONOCYTES # (MANUAL) 0.4 10^3/uL (0.1-1.4); ABSOLUTE NEUTROPHILS# (MANUAL) 3.2 10^3/uL (1.7-8.2); BASOPHILS % (MANUAL) 1 % (0-2); EOSINOPHILS % (MANUAL) 4 % (0-6); LYMPHOCYTES % (MANUAL) 18 % (13-45); MONOCYTES % (MANUAL) 8 % (3-13); SEGMENTED NEUTROPHILS % (MAN) 57 % (42-78); TOTAL CELLS COUNTED 100
[2018-06-16 10:40] LABS: ANISOCYTOSIS SLIGHT
[2018-06-16 10:41] LABS: OVALOCYTES 1+; PLATELET COMMENT ADEQUATE; POIKILOCYTOSIS 1+
[2018-06-16] MEDS ORDERED: OXYMETAZOLINE HCL 0.05% NASAL SPRAY 15 ML BOTTLE NASL ONE (10:53)
--- NOTE | 2018-06-16 11:00 | ER Document Report ---
ED General - General Chief Complaint: Nose Bleed Stated Complaint: NOSE BLEED Time Seen by Provider: 06/16/18 10:36 Primary Care Provider: AURORA LOWRY MD [Primary Care Provider] - Follow up as needed TRAVEL OUTSIDE OF THE [place] 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 Patient states that he bled for 1 hour and then that resolved. Patient states he did have a little bit of a headache thereafter, but feels back to normal. He is accompanied by his who states that he is acting and behaving normally. His appearance is also his baseline. Patient states that aside from being thirsty and hungry he has no other concerns or complaints. He does take Plavix. He was seen by ENT about 11 days ago and had a biopsy of his throat performed. states that he has had multiple sinus surgeries as well. Patient states that he is able to breathe out of his nose without any difficulties. He is urinating normally and having normal bowel movements. Denies any headache, fever, head injury, neck pain, changes in vision/speech/mentation/hearing, URI, sore throat, chest pain, palpitations, syncope, cough, shortness of breath, wheeze, dyspnea, abdominal pain, nausea/vomiting/diarrhea, urinary retention, dysuria, hematuria, loss of control of bowel or bladder, numbness/tingling, saddle anesthesia, muscle paralysis, or rash. - Related Data Allergies/Adverse Reactions: codeine Allergy (Verified 06/05/18 11:51) latex [Latex] Allergy (Verified 06/05/18 11:51) tetracycline Allergy (Verified 06/05/18 11:51) Past Medical History - Social History Smoking Status: Former Smoker Chew tobacco use (# tins/day): No Frequency of alcohol use: None Drug Abuse: None Family History: Reviewed & Not Pertinent Patient has suicidal ideation: No Patient has homicidal ideation: No - Past Medical History Cardiac Medical History: Reports: Hx Hypercholesterolemia, Hx Hypertension Denies: Hx Coronary Artery Disease, Hx Heart Attack Pulmonary Medical History: Reports: Hx Asthma, Hx COPD Denies: Hx Bronchitis, Hx Pneumonia Neurological Medical History: Denies: Hx Cerebrovascular Accident, Hx Seizures Endocrine Medical History: Reports: Hx Hypothyroidism Renal/ Medical History: Denies: Hx Peritoneal Dialysis Malignancy Medical History: 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 Denies: Hx Hepatitis, Hx Hiatal Hernia, Hx Ulcer Musculoskeletal Medical History: Denies Hx Arthritis Psychiatric Medical History: Reports: Hx Depression Infectious Medical History: Denies: Hx Hepatitis Past Surgical History: Reports: Hx Orthopedic Surgery - b/l ankle and wrist, Hx Tonsillectomy, Hx Vascular Surgery - lymph node in neck/groin, Other. Denies: Hx Open Heart Surgery, Hx Pacemaker - Immunizations Hx Diphtheria, Pertussis, Tetanus Vaccination: Yes Hx Pneumococcal Vaccination: 05/27/06 Review of Systems - Review of Systems -: Yes All other systems reviewed and negative Physical Exam - Vital signs Vitals: Temp 98.0 F 06/16/18 09:22 - Notes Notes: PHYSICAL EXAMINATION: GENERAL: Well-appearing, well-nourished and in no acute distress. A&Ox4. Answers questions appropriately. HEAD: Atraumatic, normocephalic. Non-tender. EYES: Pupils equal round and reactive to light, extraocular movements intact, sclera anicteric, conjunctiva are normal. No nystagmus. vis english intact. ENT: EAC clear b/l. TM's intact b/l without erythema, fluid, or perforation. Nares patent and with dried bloody discharge on the right, no active bleed. oropharynx clear without exudates. There is + dried blood in his mouth. No tonsilar hypertrophy or erythema. Moist mucous membranes. No sinus tenderness. NECK: Normal range of motion, supple without lymphadenopathy. No rigidity/meningismus. No midline tenderness. LUNGS: Breath sounds clear to auscultation bilaterally and equal. No wheezes rales or rhonchi. HEART: Regular rate and rhythm without murmurs, rubs, gallops. ABDOMEN: Soft, nontender, nondistended abdomen. No guarding, no rebound. Normal bowel sounds present. No CVA tenderness bilaterally. Musculoskeletal: Ext's b/l: FROM to passive/active. Strength 5+/5. No deficits noted. No bony tenderness of extremities. Extremities: No cyanosis, clubbing, or edema b/l. Peripheral pulses 2+. Capillary refill less than 2 seconds. NEUROLOGICAL: GCS 15. Cranial nerves grossly intact. Baseline speech/facial droop/lid lag per pt/, normal gait. Normal sensory, motor exams. Reflexes 2+ b/l. SIMONE's negative. Pronator drift negative. Heel/baptiste, finger/nose wnl. PSYCH: Normal mood, normal affect. SKIN: Warm, Dry, normal turgor, no rashes or lesions noted. Course - Re-evaluation Re-evalutation: 06/16/18 10:[address] Sutton who is in agreement with dispo/plan. Patient is an afebrile, well-hydrated, 78-year-old male who presents emergency department with resolved epistaxis. Vitals are acceptable without significant tachycardia, tachypnea, or hypoxia. PE is otherwise unremarkable for any acute focal neurological deficits. Patient has not had any active bleeding since 3 AM. He is nontoxic-appearing and is able to tolerate p.o. without difficulty. No labs or imaging warranted at this time. Patient sees ENT, oncology, and has a PCM. Low suspicion for any acute blood loss anemia requiring transfusion, sepsis, meningitis, intracranial hemorrhage, ischemic stroke, or fracture at this time. Patient is aware that his condition can change from initial pr esentation and that he needs to monitor symptoms closely for any acute changes. Patient states that he would just like to go home at this time as he is feeling well. Advise recheck with 1 of his providers this week. Patient was provided with and dispensed Afrin nasal spray. Return to the ED with any other worsening/concerning symptoms as reviewed. states that they will be calling his ENT as well as his family doctor today. Patient and in agreement with plan at this time. - Vital Signs Vital signs: Temp Pulse Resp BP Pulse Ox 98.0 F 06/16/18 09:22 - Laboratory Result Diagrams: 06/16/18 09:29 06/16/18 09:29 Laboratory results interpreted by me: 06/16/18 06/16/18 09:29 09:29 RDW 14.9 H Chloride 108 H BUN 22 H Discharge - Discharge Clinical Impression: Epistaxis Condition: Stable Disposition: HOME, SELF-CARE Instructions: Nosebleed Instructions (OM) Additional Instructions: Maintain adequate fluid and food intake Take home medications as directed Monitor blood pressure daily and keep a log Monitor symptoms for any acute changes Recheck with your PCM in 1-2 days Schedule an appointment with ENT this week Return to the ED with any worsening symptoms and/or development of fever, headache, recurrent nose bleed, weakness, dizziness, chest pain, palpitations, syncope, shortness of breath, trouble breathing, abdominal pain, n/v/d, blood in stool/urine, loss of control of bowel/bladder, urinary retention, muscle weakness/paralysis, numbness/tingling, or other worsening symptoms that are concerning to you. Referrals: AURORA LOWRY MD [Primary Care Provider] - Follow up tomorrow IVAN CORONA DO [ASSOCIATE] - Follow up in 3-5 days
[2018-06-16 11:11] VITALS: BP 146/96
[2018-06-17 12:09] LABS: PATH REVIEW PATHOLOGIST REVIEWED
== END 2018-06-16 11:16 | disposition home or self-care (01) ==
LOC: ER 09:14
DX: R04.0 Epistaxis (principal); J44.9 Chronic obstructive pulmonary disease, unspecified; I10 Essential (primary) hypertension; Z79.02 Long term (current) use of antithrombotics/antiplatelets; Z85.89 Personal history of malignant neoplasm of other organs and systems; Z85.841 Personal history of malignant neoplasm of brain; Z87.891 Personal history of nicotine dependence
CPT/HCPCS: 99283; 36415; 85025; 85610; 85730; 80053; J3490

== ENCOUNTER 2018-07-07 14:13 | Emergency (ER) | payer MEDICARE, OTHER ==
--- NOTE | 2018-07-07 14:28 | ER Document Report ---
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 Patient had 3 falls in the last 24 hours, 2 of which he struck his head, which were done yesterday, the first 1 was around 1:00 yesterday where he fell on the deck and hit the back of his head, and then later in the evening around 8 PM he fell in the bathroom and was wedged between the toilet and shower, EMS did not come to the hospital, and helped him back up, and he went to sleep, he fell again this morning and went to his primary care office, who ordered outpatient CT imaging that demonstrated subarachnoid bleeding, that is acute. He does have vasogenic edema that seemingly worse from his prior imaging. 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 At this time the patient denies having any headache, lightheadedness, numbness, tingling or weakness. Past Medical History: Brain cancer, TIAs, seizures Past Surgical History: Lymph node dissections in the neck and groin, gamma knife, sinus surgery Social History: Denies current tobacco, alcohol or drug use, primary care physician is Dr. Lowry. Family History: Reviewed and noncontributory for presenting illness Allergies: Reviewed, see documented allergy list. REVIEW OF SYSTEMS: Other than noted above, the 12 point review of systems was reviewed with the patient and were negative, all pertinent findings are included in the HPI. PHYSICAL EXAMINATION: Vital signs reviewed, nursing noted reviewed. GENERAL: Well-appearing, well-nourished and in no acute distress. HEAD: Atraumatic, normocephalic. EYES: Eyes appear normal, extraocular movements intact, sclera anicteric, conjunctiva are normal. ENT: nares patent, oropharynx clear without exudates. Moist mucous membranes. No midface instability, TMs appear normal bilaterally NECK: Normal range of motion, supple without lymphadenopathy midline tenderness LUNGS: Breath sounds clear to auscultation bilaterally and equal. No wheezes rales or rhonchi. HEART: Regular rate and rhythm without murmurs ABDOMEN: Soft, nontender, normoactive bowel sounds. No rebound, guarding, or rigidity. No masses appreciated. EXTREMITIES: Nontender, good range of motion, no pitting or edema. NEUROLOGICAL: Dysarthria, at baseline and unchanged. No new focal neurological deficits, patient has good strength and sensation distally in all extremities. Moves all extremities spontaneously Motor and sensory grossly intact on exam. PSYCH: Normal mood, normal affect. SKIN: Warm, Dry, normal turgor, skin tear noted to the right forearm, no active bleeding at the moment. TRAVEL OUTSIDE OF THE [place] IN LAST 30 DAYS: No - Related Data Allergies/Adverse Reactions: codeine Allergy (Verified 07/07/18 14:34) latex [Latex] Allergy (Verified 07/07/18 14:34) tetracycline Allergy (Verified 07/07/18 14:34) Past Medical History - Social History Smoking Status: Never Smoker Family History: Reviewed & Not Pertinent - Past Medical History Cardiac Medical History: Reports: Hx Hypercholesterolemia, Hx Hypertension Denies: Hx Coronary Artery Disease, Hx Heart Attack Pulmonary Medical History: Reports: Hx Asthma, Hx COPD Denies: Hx Bronchitis, Hx Pneumonia Neurological Medical History: Denies: Hx Cerebrovascular Accident, Hx Seizures Endocrine Medical History: Reports: Hx Hypothyroidism Renal/ Medical History: Denies: Hx Peritoneal Dialysis Malignancy Medical History: 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 Denies: Hx Hepatitis, Hx Hiatal Hernia, Hx Ulcer Musculoskeletal Medical History: Denies Hx Arthritis Psychiatric Medical History: Reports: Hx Depression Infectious Medical History: Denies: Hx Hepatitis Past Surgical History: Reports: Hx Orthopedic Surgery - b/l ankle and wrist, Hx Tonsillectomy, Hx Vascular Surgery - lymph node in neck/groin, Other. Denies: Hx Open Heart Surgery, Hx Pacemaker - Immunizations Hx Diphtheria, Pertussis, Tetanus Vaccination: Yes Hx Pneumococcal Vaccination: 05/27/06 Physical Exam - Vital signs Vitals: Resp Pulse Ox 19 96 07/07/18 15:03 07/07/18 15:03 Course - Re-evaluation Re-evalutation: Patient seen and examined vital signs reviewed. Laboratory data and imaging were ordered as appropriate for the patient's presenting symptoms and complaint, with consideration of any critical or life threatening conditions that may be associated with their obtained history and exam as noted above Results were reviewed when available and demonstrated CT imaging demonstrated left-sided subarachnoid bleeding, petechial hemorrhages on the right brain, vasogenic edema associated with tumor. Seemingly worse from prior imaging. The patient was re-evaluated and was stable Evaluation was most consistent with acute traumatic subarachnoid hemorrhage, closed head injury, call was placed to transfer the patient expeditiously to a trauma center case was discussed with trauma surgeon, Dr. cShuler, who sen ously sent with the patient onto their service. Results were discussed with the patient at this point after careful consideration I feel that that patient should be transferred to [facility] due to traumatic subarachnoid hemorrhage. This was discussed with the patient that it is in the best interest for their care to be transferred, the risks and benefits of transfer were discussed, including but not limited to clinical deterioration during transport, respiratory distress, and potential for traumatic injuries. Patient agreed with this plan of care. *Note is created using voice recognition software and may contain spelling, syntax or grammatical errors. 07/07/18 15:08 Patient seen and examined prior to transfer, patient remained stable, for transport at this time, all questions answered. Blood pressure remained stable systolic is 137. - Vital Signs Vital signs: Temp Pulse Resp BP Pulse Ox 18 159/72 H 100 07/07/18 15:21 07/07/18 15:22 07/07/18 15:22 - Laboratory Result Diagrams: 07/07/18 14:45 07/07/18 14:45 Laboratory results interpreted by me: 07/07/18 07/07/18 14:45 14:45 RBC 3.74 L Hgb 11.6 L Hct 32.8 L RDW 15.0 H Creatinine 1.37 H Est GFR (Non-Af Amer) 51 L Total Protein 5.9 L - EKG Interpretation by Me Additional EKG results interpreted by me: EKG demonstrates sinus bradycardia with a ventricular rate of 54 bpm, normal axis, normal intervals, no evidence of acute ischemia in this EKG, compared with prior EKG from 05/05/2018, without significant change. Critical Care Note - Critical Care Note Total time excluding time spent on procedures (mins): 35 Comments: Critical care time 35 minutes exclusive from separate billable procedures for a patient requiring complex medical decision making, and high potential for clinical deterioration. The patient with acute traumatic subarachnoid hemorrhage, requiring close monitoring and frequent examinations and transfer to tertiary trauma center. Time spent obtaining history from patient or surrogate, discussions with consultants, development of treatment plan with patient or surrogate, evaluation of patient's response to treatment, examination of patient, ordering and performing treatments and interventions, ordering and review of laboratory studies, re-evaluation of patient's condition, ordering and review of radiographic studies and review of old charts Discharge - Discharge Clinical Impression: Vasogenic brain edema Traumatic subarachnoid hemorrhage Qualifiers: Encounter type: initial encounter Loss of consciousness presence/duration: without LOC Qualified Code(s): S06.6X0A - Traumatic subarachnoid hemorrhage without loss of consciousness, initial encounter Closed head injury Qualifiers: Encounter type: initial encounter Qualified Code(s): S09.90XA - Unspecified injury of head, initial encounter Condition: Stable Disposition: [facility] Referrals: AURORA LOWRY MD [Primary Care Provider] - Follow up as needed
[2018-07-07 14:57] LABS: ABSOLUTE EOSINOPHILS # (AUTO) 0.3 10^3/uL (0.0-0.6); ABSOLUTE LYMPHOCYTES (AUTO) 1.9 10^3/uL (0.5-4.7); ABSOLUTE MONOCYTES (AUTO) 0.5 10^3/uL (0.1-1.4); ABSOLUTE NEUT (AUTO) 2.9 10^3/uL (1.7-8.2); BASOPHILS % (AUTO) 0.9 % (0-2); EOSINOPHILS % (AUTO) 4.9 % (0-6); HEMATOCRIT 32.8 % (37.9-51.0); HEMOGLOBIN 11.6 g/dL (13.5-17.0); LYMPHOCYTES % (AUTO) 33.8 % (13-45); MEAN CORPUSCULAR HGB CONC 35.3 g/dL (32.0-36.0); MEAN CORPUSCULAR VOLUME 88 fl (80-97); MONOCYTES % (AUTO) 8.8 % (3-13); PLATELET COUNT 255 10^3/uL (150-450); RED BLOOD COUNT 3.74 10^6/uL (4.35-5.55); SEGMENTED NEUTROPHILS % (AUTO) 51.6 % (42-78); TOTAL CELLS COUNTED % (AUTO) 100 %; WHITE BLOOD COUNT 5.6 10^3/uL (4.0-10.5)
[2018-07-07 15:04] LABS: PROTHROMBIN TIME 13.7 SEC (11.4-15.4)
[2018-07-07 15:18] LABS: ALANINE AMINOTRANSFERASE 22 U/L (21-72); ALBUMIN 3.7 g/dL (3.5-5.0); ALKALINE PHOSPHATASE 117 U/L (38-126); ANION GAP 7 (5-19); ASPARTATE AMINO TRANSFERASE 27 U/L (17-59); BILIRUBIN,DIRECT 0.2 mg/dL (0.0-0.4); BILIRUBIN,TOTAL 0.7 mg/dL (0.2-1.3); BLOOD UREA NITROGEN 18 mg/dL (7-20); CALCIUM 8.9 mg/dL (8.4-10.2); CARBON DIOXIDE 27 mmol/L (22-30); CHLORIDE 106 mmol/L (98-107); GLUCOSE 96 mg/dL (75-110); POTASSIUM 4.2 mmol/L (3.6-5.0); SODIUM 139.7 mmol/L (137-145); TOTAL PROTEIN 5.9 g/dL (6.3-8.2)
[2018-07-07 15:40] VITALS: BP 159/72
--- NOTE | 2018-07-07 15:44 | RADIOLOGY REPORT (SQ) ---
EXAM DESCRIPTION: CHEST SINGLE VIEW COMPLETED DATE/TIME: 07/07/2018 3:22 pm REASON FOR STUDY: fall, right rib pain COMPARISON: 05/05/2018 EXAM PARAMETERS: NUMBER OF VIEWS: One view. TECHNIQUE: Single frontal radiographic view of the chest acquired. RADIATION DOSE: NA LIMITATIONS: None. FINDINGS: LUNGS AND PLEURA: No opacities, masses or pneumothorax. No pleural effusion. MEDIASTINUM AND HILAR STRUCTURES: No masses. Contour normal. HEART AND VASCULAR STRUCTURES: Heart normal in size. Normal vasculature. BONES: No acute findings. HARDWARE: None in the chest. OTHER: No other significant finding. IMPRESSION: NO ACUTE RADIOGRAPHIC FINDING IN THE CHEST. TECHNICAL DOCUMENTATION: JOB ID: [id number] [employer]- All Rights Reserved Reading location - IP/workstation name: [email or web address]
--- NOTE | 2018-07-07 23:19 | EKG REPORT ---
SEVERITY:- NORMAL ECG - SINUS BRADYCARDIA : Confirmed by: Edie Fang MD 07-Jul-2018 23:19:10
== END 2018-07-07 15:42 | disposition short-term general hospital (02) ==
LOC: ER 14:13
DX: S06.1X9A Traumatic cerebral edema with loss of consciousness of unspecified duration, initial encounter (principal); S06.6X0A Traumatic subarachnoid hemorrhage without loss of consciousness, initial encounter; C4A.9 Merkel cell carcinoma, unspecified; R79.89 Other specified abnormal findings of blood chemistry; W19.XXXA Unspecified fall, initial encounter; Z91.81 History of falling; I10 Essential (primary) hypertension; J44.9 Chronic obstructive pulmonary disease, unspecified
CPT/HCPCS: 36415; 71045; 80053; 85025; 85610; 85730; 93005; 93010; 99285

== ENCOUNTER → 2018-07-07 | Outpatient (CLI) | payer MEDICARE, OTHER ==
--- NOTE | 2018-07-07 14:02 | RADIOLOGY REPORT (SQ) ---
EXAM DESCRIPTION: CT HEAD WITHOUT COMPLETED DATE/TIME: 07/07/2018 1:34 pm REASON FOR STUDY: G93.9 DISORDER OF BRAIN, UNSPECIFIED G45.9 TRANSIENT CEREBRAL ISCHEMIC RANGEL G45.9 TRANSIENT CEREBRAL ISCHEMIC ATTACK, UNSPECIFIED G93.9 DISORDER OF BRAIN, UNSPECIFIED COMPARISON: 05/05/2018 TECHNIQUE: Axial images acquired through the brain without intravenous contrast. Images reviewed wi th bone, brain and subdural windows. Additional sagittal and coronal reconstructions were generated. Images stored on PACS. All CT scanners at this facility use dose modulation, iterative reconstruction, and/or weight based d osing when appropriate to reduce radiation dose to as low as reasonably achievable (ALARA). [facility]: Dose Right [facility]: CareDose [facility]: Dose Right [facility]: Teradose 4D [facility]: Appetise RADIATION DOSE: mGy. LIMITATIONS: None. FINDINGS: Since the prior, there has been interval increase in vasogenic edema in the right frontal lobe. Patient has history of [place] cell carcinoma right skullbase status post gamma knife. Mass me asures roughly 2 cm. There Has been development of petechial hemorrhages in the right frontal lobe w walter matter and left frontal subarachnoid space. No midline shift. No intraventricular hemorrhage. No extra-axial fluid collection. IMPRESSION: Parenchymal and subarachnoid hemorrhages in patient with history of right frontal lobe m ass and recent fall. There has been interval increase in size of the mass and associated vasogenic e angel. EVIDENCE OF ACUTE STROKE: NO. COMMENT: Pertinent findings on the imaging study reported as a CRITICAL RESULT to AURORA OLWRY MD at13:52 on 07/07/2018. Category of Critical Result: Intracranial hemorrhage. Quality ID # [id number]: Final reports with documentation of one or more dose reduction techniques (e.g., Au tomated exposure control, adjustment of the mA and/or kV according to patient size, use of iterative reconstruction technique) TECHNICAL DOCUMENTATION: JOB ID: [id number] [employer] All Rights Reserved Reading location - IP/workstation name: [email or web address]
== END ==
LOC: RAD 14:28
PROVIDERS: ATTEND Family Medicine
DX: G45.9 Transient cerebral ischemic attack, unspecified (principal); G93.9 Disorder of brain, unspecified
CPT/HCPCS: 70450